=== PATIENT | male | born 1950 | race American Indian/Alaskan Native ===

== ENCOUNTER 2016-11-26 10:45 | Outpatient (CLI) | payer MEDICARE ==
--- NOTE | 2016-11-26 12:57 | Ultrasound Report ---
ULTRASOUND RENAL INDICATION: Chronic kidney disease. COMPARISON: None similar. FINDINGS: Renal sonography demonstrates mild to moderately increased renal cortical echogenicity, right more than left. Grossly preserved contours. No hydronephrosis. Right kidney measures 10.5 x 7.3 x 7.1 cm with cortical thickness of 1.5 cm. A 1 x 0.8 cm right upper to mid renal cortical round, non-shadowing, hyperechoic focus incidentally seen, image 9, possibly fatty and not excluded for a small angiomyolipoma, amongst others. Left kidney estimated at 10.2 x 5.6 x 5.6 cm with cortical thickness of 1.3 cm. Urinary bladder appears within normal limits. CONCLUSION: Medical renal disease and an approximately 1 cm right renal cortical hyperechoic focus without acute sonographic abnormality, as described. Thank you for the opportunity to participate in this patient's care.
== END 2016-11-26 10:46 | disposition home or self-care (01) ==
LOC: US 10:45
PROVIDERS: ATTEND Internal Medicine Nephrology
DX: N18.4 Chronic kidney disease, stage 4 (severe) (principal)
CPT/HCPCS: 76770

== ENCOUNTER 2017-01-09 06:45 | Day surgery (SDC) | payer MEDICARE ==
[2017-01-09 07:42] LABS: Basophils % (Auto) 1.2 % (0.0-1.8); Eosinophils % (Auto) 2.1 % (0.0-4.3); Hematocrit 33.2 % (35.5-45.6); Mean Corpuscular HGB Conc 33 % (32-34); Mean Corpuscular Volume 77 fl (84-94); Platelet Count 160 K/mm3 (140-440); Red Blood Count 4.32 M/mm3 (3.65-5.03); Red Cell Distribution Width 16.9 % (13.2-15.2); White Blood Count 7.9 K/mm3 (4.5-11.0)
[2017-01-09 07:45] LABS: Mean Corpuscular Hemoglobin 26 pg (28-32)
[2017-01-09 07:53] LABS: INR 1.06 (0.87-1.13)
[2017-01-09 07:54] LABS: Partial Thromboplastin Time 35.8 Sec. (24.2-36.6)
[2017-01-09] MEDS ORDERED: SUBLIMAZE IV ONE (09:42)
[2017-01-09] MEDS ORDERED: VERSED IV ONE (09:42)
--- NOTE | 2017-01-09 10:31 | Short Stay Summary ---
Short Stay Documentation Date of service: 01/09/17 - History Principal diagnosis: Chronic Renal Dz Past Medical History: hypertension - Allergies and Medications Current Medications: Allergies No Known Allergies Allergy (Verified 01/09/17 07:12) Home Medications Medication Instructions Recorded Confirmed Last Taken Type Furosemide [Lasix] 40 mg PO QDAY 30 Days 03/29/14 01/09/17 01/08/17 Rx Potassium Chloride [Klor-Con] 20 meq PO QDAY 03/13/16 01/09/17 01/08/17 History Simvastatin [Zocor TAB] 20 mg PO QHS tablet 03/17/16 01/09/17 01/08/17 Rx amLODIPine [Norvasc] 10 mg PO QDAY tablet 03/17/16 01/09/17 01/08/17 Rx hydrALAZINE [Apresoline TAB] 100 mg PO BID tablet 03/17/16 01/09/17 01/08/17 Rx Insulin Aspart [NovoLOG 100 5 units SQ 5XD 01/09/17 01/09/17 01/08/17 History UNITS/ML VIAL] Insulin Detemir [Levemir] 10 units SQ QHS 01/09/17 01/09/17 01/08/17 History Labetalol [Normodyne] 200 mg PO BID 01/09/17 01/09/17 01/08/17 History Lisinopril [Lisinopril] 40 mg PO BID 01/09/17 01/09/17 01/08/17 History - Physical exam General appearance: no acute distress - Brief post op/procedure progress note Date of procedure: 01/09/17 Pre-op diagnosis: CKD Post-op diagnosis: same Procedure: renal bx. Surgeon: SANTY ALVARES Estimated blood loss: none Specimen disposition: to lab Condition: stable - Disposition Condition at discharge: Good Disposition: DISCHARGED TO HOME OR SELFCARE Short Stay Discharge Plan Follow up with: ALIRIO LIMA MD [Primary Care Provider] - 7 Days
[2017-01-09 17:42] VITALS: BP 157/83
--- NOTE | 2017-01-13 08:13 | Cat Scan Report ---
CT-GUIDED BIOPSY OF THE LEFT KIDNEY. HISTORY: Chronic kidney disease. PROCEDURE: The patient's skin surface overlying the left flank was prepped and draped using sterile technique. Local anesthetic was injected into the skin. Using CT guidance, a 17-gauge sheath needle was advanced into the lower pole cortex of the left kidney. Two passes were made using an 18-gauge biopsy gun. Adequate tissue cores were obtained. Intravenous conscious sedation was used. Independent cardiorespiratory monitoring was performed by the outpatient procedure nurse for 20 minutes, supervised by me. The patient tolerated procedure well clinically and was sent to the outpatient procedure unit and placed on complete bed rest for at least 8 hours.
== END 2017-01-09 18:45 | disposition home or self-care (01) ==
LOC: OPU 06:45 → EDSTATUS 07:30 → OPU 18:45
PROVIDERS: ATTEND Internal Medicine Nephrology
DX: I13.0 Hypertensive heart and chronic kidney disease with heart failure and stage 1 through stage 4 chronic kidney disease, or unspecified chronic kidney disease (principal); E11.22 Type 2 diabetes mellitus with diabetic chronic kidney disease; E11.621 Type 2 diabetes mellitus with foot ulcer; N18.4 Chronic kidney disease, stage 4 (severe); I50.33 Acute on chronic diastolic (congestive) heart failure; I25.10 Atherosclerotic heart disease of native coronary artery without angina pectoris; F10.21 Alcohol dependence, in remission; F17.210 Nicotine dependence, cigarettes, uncomplicated; Z79.4 Long term (current) use of insulin; Z79.899 Other long term (current) drug therapy
CPT/HCPCS: 36415; 50200; 77012; 82962; 85025; 85610; 85730; J2250; J3010

== ENCOUNTER 2017-03-07 11:19 | Outpatient (CLI) | payer MEDICARE ==
--- NOTE | 2017-03-07 13:40 | Cat Scan Report ---
CT scan of abdomen and pelvis without IV contrast: History: Chronic kidney disease stage IV, acute left flank pain. Findings: Limited study due to absence of contrast. Normal lung bases. No pleural pericardial effusion. Normal liver spleen and pancreas. Gallbladder is contracted. Normal adrenals. There is swelling noted of the upper pole of left kidney with mixed attenuation. Suspicion of a mass or acute pyelonephritis cannot be excluded. No calculi is identified left kidney and ureter and bladder. 2 mm nonobstructing calculus right kidney. No free intraperitoneal fluid or air. No evidence of adenopathy. Atherosclerotic calcified abdominal aorta. Large amount of stool in gaseous colon. No obstruction. Impression: Acute pyelonephritis or mass upper pole left kidney. Nonobstructing small calculus right kidney. Gaseous colon with large volume stool.
== END 2017-03-07 11:20 | disposition home or self-care (01) ==
LOC: VAS 11:19
PROVIDERS: ATTEND Internal Medicine Nephrology
DX: N18.4 Chronic kidney disease, stage 4 (severe) (principal); K82.0 Obstruction of gallbladder; N20.0 Calculus of kidney; I70.0 Atherosclerosis of aorta
CPT/HCPCS: 74176

== ENCOUNTER 2017-04-17 11:48 | Outpatient (CLI) | payer MEDICARE ==
[2017-04-17] MEDS ORDERED: XYLOCAINE TOPICAL 4% TP ONE ×2 (12:07→12:38)
== END 2017-04-17 11:49 | disposition home or self-care (01) ==
LOC: WOUND 11:48
PROVIDERS: ATTEND Nurse Practitioner
DX: E11.621 Type 2 diabetes mellitus with foot ulcer (principal); L97.511 Non-pressure chronic ulcer of other part of right foot limited to breakdown of skin; E11.22 Type 2 diabetes mellitus with diabetic chronic kidney disease; I13.0 Hypertensive heart and chronic kidney disease with heart failure and stage 1 through stage 4 chronic kidney disease, or unspecified chronic kidney disease; N18.9 Chronic kidney disease, unspecified; I50.9 Heart failure, unspecified; E78.00 Pure hypercholesterolemia, unspecified; L84 Corns and callosities; F17.200 Nicotine dependence, unspecified, uncomplicated
CPT/HCPCS: 11042; G0463; 11055

== ENCOUNTER 2017-04-24 11:03 | Outpatient (CLI) | payer MEDICARE | END 2017-04-24 11:04 | disposition home or self-care (01) | LOC: WOUND 11:03 | PROVIDERS: ATTEND Nurse Practitioner | DX: E11.621 Type 2 diabetes mellitus with foot ulcer (principal); L97.511 Non-pressure chronic ulcer of other part of right foot limited to breakdown of skin; L84 Corns and callosities; E11.22 Type 2 diabetes mellitus with diabetic chronic kidney disease; I13.0 Hypertensive heart and chronic kidney disease with heart failure and stage 1 through stage 4 chronic kidney disease, or unspecified chronic kidney disease; N18.4 Chronic kidney disease, stage 4 (severe); I50.9 Heart failure, unspecified; E78.00 Pure hypercholesterolemia, unspecified; F17.200 Nicotine dependence, unspecified, uncomplicated | CPT/HCPCS: 99213; G0463 ==

== ENCOUNTER 2017-05-15 12:50 | Outpatient (CLI) | payer MEDICARE ==
--- NOTE | 2017-05-16 15:58 | Vascular Lab Report ---
Upper extremity vein mapping Reason for exam: Preoperative evaluation for hemodialysis access Comments: On the right, the cephalic vein is borderline usable from elbow to shoulder. The basilic vein is borderline usable from elbow to shoulder. The brachial and radial arteries are patent. The radial artery is of normal caliber. On the left, the cephalic vein is borderline usable from elbow to shoulder. The basilic vein is usable from elbow to shoulder. The brachial and radial arteries are patent. The radial artery is smaller in size measuring 1.9 mm. Impression: Both cephalic veins are borderline usable for use as AV access since there was no tourniquet this examination. Both basilic veins are borderline usable for use as AV access since there was no tourniquet this examination. Small left radial artery.
== END 2017-05-15 12:51 | disposition home or self-care (01) ==
LOC: VAS 12:50
PROVIDERS: ATTEND Radiology Diagnostic Radiology
DX: Z01.818 Encounter for other preprocedural examination (principal); I13.2 Hypertensive heart and chronic kidney disease with heart failure and with stage 5 chronic kidney disease, or end stage renal disease; N18.6 End stage renal disease; I50.9 Heart failure, unspecified; E78.00 Pure hypercholesterolemia, unspecified; I25.10 Atherosclerotic heart disease of native coronary artery without angina pectoris; J18.9 Pneumonia, unspecified organism; F17.200 Nicotine dependence, unspecified, uncomplicated
CPT/HCPCS: 93970

== ENCOUNTER 2017-06-09 08:19 | Day surgery (SDC) | payer MEDICARE ==
[~2017-06-09 08:19] MED LIST: ANCEF/STERILE WATER 2 GM/20 ML 2 GM/20 ML SYRINGE IV NR; DIPRIVAN 10 MG/ML IV ONE; HEPARIN 10,000 UNITS/10 ML ONE; MARCAINE 0.5% INFILTRATI ONE; NACL 0.9% 1000 ML 1,000 ML IV SCH; NACL 0.9% 500 ML 500 ML ONE; NACL P/F VIAL (10 ML) 0 ML ONE; NITROGLYCERIN SYRINGE 0 ML ONE; PROTAMINE SULFATE ONE; RIFADIN ONE; SUBLIMAZE ONE; XYLOCAINE MPF 2% ONE
[2017-06-09 09:43] LABS: Basophils % (Auto) 1.4 % (0.0-1.8); Eosinophils % (Auto) 3.1 % (0.0-4.3); Hematocrit 27.1 % (35.5-45.6); Hemoglobin 9.4 gm/dl (11.8-15.2); Mean Corpuscular HGB Conc 35 % (32-34); Mean Corpuscular Hemoglobin 27 pg (28-32); Mean Corpuscular Volume 78 fl (84-94); Platelet Count 122 K/mm3 (140-440); Red Blood Count 3.49 M/mm3 (3.65-5.03); Red Cell Distribution Width 16.8 % (13.2-15.2); White Blood Count 5.9 K/mm3 (4.5-11.0)
[2017-06-09 09:58] LABS: BUN/Creatinine Ratio 15.83; Calcium 8.1 mg/dL (8.4-10.2); Chloride 108.1 mmol/L (98-107); Potassium 4.2 mmol/L (3.6-5.0)
--- NOTE | 2017-06-09 09:59 | Anesthesia Consultation ---
Anesthesia Consult and Med Hx Date of service: 06/09/17 - Airway Anesthetic Teeth Evaluation: Poor ROM Head & Neck: Adequate Mental/Hyoid Distance: Adequate Mallampati Class: Class II Intubation Access Assessment: Probably Good - Pulmonary Exam CTA: Yes - Cardiac Exam Cardiac Exam: RRR - Pre-Operative Health Status ASA Pre-Surgery Classification: ASA4 Proposed Anesthetic Plan: General - Pre-Anesthesia Comment Pre-Anesthesia Comments: Echo 01/2017 EF 55-60%, Mod/Severe LV hypertrophy. Lexiscan 2016 Negative Stress Test - Pulmonary Hx Smoking: Yes (since 14 yrs old) SOB: Yes (upon exertion ) Hx Sleep Apnea: Yes (no cpap use ) - Cardiovascular System Hx Hypertension: Yes (CHF. Diastolic failure) Hx Coronary Artery Disease: Yes Hx Heart Attack/AMI: Yes Hx Percutaneous Transluminal Coronary Angioplasty (PTCA): Yes (2011) Hx Peripheral Vascular Disease: Yes - Central Nervous System CVA: Yes (2015, Right sided weakness with generalized weakness) - Endocrine Hx Renal Disease: Yes Hx End Stage Renal Disease: Yes Hx Insulin Dependent Diabetes: Yes () - Hematic Hx Anemia: Yes
[2017-06-09] MEDS ORDERED: PEPCID IV ONE (10:02)
--- NOTE | 2017-06-09 10:07 | Anesthesia Day of Surgery ---
Anesthesia Day of Surgery - Day of Surgery Patient Examined: Yes Patient H&P Reviewed: Yes Patient is NPO: Yes Beta Blockers: Yes (labetalol 06/08 at 7pm )
[2017-06-09] MEDS ORDERED: ePHEDrine SULFATE ONE (10:30)
[2017-06-09] MEDS ORDERED: MARCAINE 0.5% INFILTRATI ONE (10:48)
[2017-06-09] MEDS ORDERED: NACL 0.9% IR ONE (10:48)
[2017-06-09] MEDS ORDERED: HEPARIN 10,000 UNITS/10 ML 2,000 UNIT in NACL 0.9% 500 ML 500 ML IR ONE (10:48)
[2017-06-09] MEDS ORDERED: ZOFRAN ONE (11:21)
[2017-06-09] MEDS ORDERED: NEO SYNEPHRINE ONE (11:21)
--- NOTE | 2017-06-09 11:33 | Short Stay Summary ---
Short Stay Documentation Date of service: 06/09/17 Narrative H&P: See H&P - History H&P: obtained from office - Allergies and Medications Current Medications: Allergies No Known Allergies Allergy (Verified 06/03/17 09:20) Home Medications Medication Instructions Recorded Confirmed Last Taken Type Furosemide [Lasix] 80 mg PO BID 01/22/17 06/03/17 06/09/17 07:15 History Aspirin [Aspirin TAB] 81 mg PO ONCE #30 tablet 04/11/17 06/03/17 06/08/17 19:00 Rx AtorvaSTATin [Lipitor] 20 mg PO QHS #30 tablet 04/11/17 06/03/17 06/08/17 19:00 Rx Labetalol [Normodyne TAB] 200 mg PO BID #60 tablet 04/11/17 06/03/17 06/08/17 19 :00 Rx Potassium Chloride [Klor-Con] 20 meq PO QDAY #30 packet 04/11/17 06/03/17 19:00 Rx oxyCODONE /ACETAMINOPHEN [Percocet 1 tab PO Q6H PRN #30 tablet 04/11/1706/08/17 19:00 Rx 5/325 mg] Clopidogrel Bisulfate [Clopidogrel] 75 mg PO DAILY 06/03/17 06/03/17 06/09/17 07 :15 History hydrALAZINE [Apresoline TAB] 100 mg PO DAILY 06/03/17 06/03/17 06/09/17 07:15 History Insulin Aspart [NovoLOG 100 5 unit SQ PRN PRN 06/04/17 06/09/17 1 Month Ago History UNITS/ML VIAL] Insulin Detemir [Levemir] 10 unit SQ PRN PRN 06/04/17 06/09/17 1 Month Ago History Active Medications Cefazolin Sodium (Ancef/Sterile Water 2 Gm/20 Ml) 2 gm in 20 mls @ 80 mls/hr IV PREOP NR PRN Reason: Protocol Stop: 06/09/17 23:00 Sodium Chloride (Nacl 0.9% 1000 Ml) 1,000 mls @ 42 mls/hr IV DIRECT THONY Last Admin: 06/09/17 09:47 Dose: 42 mls/hr - Brief post op/procedure progress note Date of procedure: 06/16/17 Pre-op diagnosis: End-Stage Renal Disease Post-op diagnosis: same Procedure: Creation of Left Brachial Basilic Arteriovenous Fistula Anesthesia: SHAMA Surgeon: CARRI CABA Estimated blood loss: minimal Pathology: none Condition: stable - Disposition Condition at discharge: Good Disposition: DC-01 TO HOME OR SELFCARE Short Stay Discharge Plan Activity: other (no heavy lifting with left arm) Wound: open to air, keep clean and dry, other (okay to wash the wound with soap and water but do not soak in water) Follow up with: CARRI CABA MD [Staff Physician] - 14 Days Prescriptions: HYDROcodone/APAP 7.5-325 [[place] 7.5/325] 1 each PO Q6HR PRN #50 tablet PRN Reason: Pain
--- NOTE | 2017-06-09 11:35 | Operative Report ---
Operative Report Operative Report: Date of procedure: 06/09/2017 Pre-operative diagnosis: End-stage Renal Disease Post-operative diagnosis: End-stage Renal Disease Procedure(s): Creation of Left Brachial Artery to Basilic Arteriovenous Fistula Surgeon: Anival Lagunas MD Case Manager: None Anesthesia: Gen. endotracheal anesthesia EBL: Minimal Counts: Correct Complications: None Condition: Stable Findings: Successful creation of left brachiobasilic arteriovenous fistula with palpable thrill and radial pulse at the completion of the case. Specimen: None Indication: The patient is a 66-year-old male with a history of end-stage renal disease who is in need of long-term access. He had a vein mapping demonstrating he was an adequate candidate for creation of a fistula. He was given the risk, benefits, and alternative procedures and consented to procedure. Description of Procedure: The patient was brought to the operating room and laid in supine position after general endotracheal anesthesia was administered the patient was prepped and draped in normal sterile fashion. After anesthetizing the skin a transverse incision was created just below the antecubital crease. Dissection was carried down to the the basilic vein using sharp dissection. The vein was dissected out both proximally and distally and suture ligated and divided distally. I then ran a 3 Emanuel proximally in the vein, to ensure patency of the vein. I then flushed the vein with heparinized saline and controlled flow with a bulldog clamp. I then dissected out the brachial artery through this incision circumferentially both proximal and distal and controlled th artery with vessel loops. I placed the vessel loops on tension, controlling the flow through the artery, and created an arteriotomy using an 11 blade and Soni scissors. I created an end to side anastomosis between the basilic vein and brachial artery using a 6-0 Prolene in running fashion. Prior to completing the anastomosis I flushed the artery both proximally and distally and then advanced a 3 Emanuel proximally to break the spasm in the artery. I completed the anastomosis and removed all vessel loops allowing flow into the fistula which had an excellent thrill. I achieved hemostasis with a combination of direct pressure and electrocautery. Once hemostasis was achieved I anesthetized the wound with Marcaine. I closed the wound in 2 layers using 3-0 Vicryl in a running fashion to close the deep dermal layer and 4-0 Monocryl in a running fashion in the subcuticular layer. I dressed the wound with Surgicel. The patient tolerated the procedure well, all sponge needle and instrument counts were correct. The patient was taken to recovery in stable condition.
[2017-06-09 12:26] VITALS: BP 147/75
== END 2017-06-09 12:57 | disposition home or self-care (01) ==
LOC: OR 08:19
PROVIDERS: ATTEND Surgery Vascular Surgery
DX: E11.22 Type 2 diabetes mellitus with diabetic chronic kidney disease (principal); I13.2 Hypertensive heart and chronic kidney disease with heart failure and with stage 5 chronic kidney disease, or end stage renal disease; I50.30 Unspecified diastolic (congestive) heart failure; N18.6 End stage renal disease; E78.5 Hyperlipidemia, unspecified; F17.210 Nicotine dependence, cigarettes, uncomplicated; G47.33 Obstructive sleep apnea (adult) (pediatric); D64.9 Anemia, unspecified; I25.10 Atherosclerotic heart disease of native coronary artery without angina pectoris; Z86.73 Personal history of transient ischemic attack (TIA), and cerebral infarction without residual deficits; Z86.79 Personal history of other diseases of the circulatory system; Z95.5 Presence of coronary angioplasty implant and graft; Z98.890 Other specified postprocedural states; Z79.01 Long term (current) use of anticoagulants; Z79.82 Long term (current) use of aspirin; Z79.899 Other long term (current) drug therapy
CPT/HCPCS: 36415; 36821; 80048; 82962; 85025; C1757; J0690; J1644; J2370; J2405; J2704; J3010; J7030; J7040; J2720; J3490

== ENCOUNTER 2017-11-03 16:51 | Inpatient (IN) | payer MEDICARE ==
[2017-11-03] MEDS ORDERED: NACL 0.9% 1000 ML 1,000 ML IV ONE (17:03)
[2017-11-03 17:41] LABS: Albumin 3.5 g/dL (3.9-5); Albumin/Globulin Ratio 1.3 %; Bilirubin,Total 0.2 mg/dL (0.1-1.2); Calcium 7.5 mg/dL (8.4-10.2); Total Protein 6.1 g/dL (6.3-8.2)
[2017-11-03 17:42] LABS: Potassium 4.3 mmol/L (3.6-5.0)
[2017-11-03 17:48] LABS: Eosinophils % (Auto) 1.6 % (0.0-4.3); Hematocrit 23.5 % (35.5-45.6); Hemoglobin 7.7 gm/dl (11.8-15.2); Mean Corpuscular HGB Conc 33 % (32-34); Mean Corpuscular Volume 76 fl (84-94); Platelet Count 195 K/mm3 (140-440); Red Blood Count 3.08 M/mm3 (3.65-5.03); Red Cell Distribution Width 17.7 % (13.2-15.2); White Blood Count 6.8 K/mm3 (4.5-11.0)
[2017-11-03 17:58] LABS: INR 1.09 (0.87-1.13)
[2017-11-03 17:59] LABS: Partial Thromboplastin Time 37.1 Sec. (24.2-36.6)
[2017-11-03 18:15] LABS: Mean Corpuscular Hemoglobin 25 pg (28-32)
--- NOTE | 2017-11-04 06:22 | Emergency Department Report ---
ED General Adult HPI - General Chief complaint: Recheck/Abnormal Lab/Rx Stated complaint: ABNORMAL LABS Time Seen by Provider: 11/04/17 06:14 Source: patient Mode of arrival: Wheelchair Limitations: No Limitations - History of Present Illness Initial comments: Note: It should be noted that the patient received a liter of normal saline before I saw him. Apparently the patient had lab drawn on Friday. He was informed yesterday by his PMD to go to the emergency department because he had laboratory abnormalities. Patient himself states he has been short of breath as well as generalized weak. He complains of no chest or abdominal pain. He denies fever or chills. He states he's had some white sputum and substantial leg swelling which is chronic. Patient had an AV fistula placed in May of the current year. This was successful. It has not yet been used. I believe it was placed in anticipation of dialysis due to the patient's impaired renal function and cardiomyopathy. -: Gradual Severity scale (0 -10): 0 Consistency: intermittent (shortness of breath and constant leg edema does not complain of leg pain) Improves with: none Worsens with: other (exertion) Associated Symptoms: denies other symptoms (denies fever or chills), shortness of breath, weakness - Related Data Home Medications Medication Instructions Recorded Confirmed Last Taken Furosemide [Lasix] 80 mg PO BID 01/22/17 06/03/17 06/09/17 07:15 Clopidogrel Bisulfate [Clopidogrel] 75 mg PO DAILY 06/03/17 06/03/17 06/09/17 07 :15 hydrALAZINE [Apresoline TAB] 100 mg PO DAILY 06/03/17 06/03/17 06/09/17 07:15 Insulin Aspart [NovoLOG 100 5 unit SQ PRN PRN 06/04/17 06/09/17 1 Month Ago UNITS/ML VIAL] ~05/10/17 Insulin Detemir [Levemir] 10 unit SQ PRN PRN 06/04/17 06/09/17 1 Month Ago ~05/10/17 Previous Rx's Medication Instructions Recorded Last Taken Type Aspirin [Aspirin TAB] 81 mg PO ONCE #30 tablet 04/11/17 06/08/17 19:00 Rx AtorvaSTATin [Lipitor] 20 mg PO QHS #30 tablet 04/11/17 06/08/17 19:00 Rx Labetalol [Normodyne TAB] 200 mg PO BID #60 tablet 04/11/17 06/08/17 19:00 Rx Potassium Chloride [Klor-Con] 20 meq PO QDAY #30 packet 04/11/17 06/08/17 19:00 Rx oxyCODONE /ACETAMINOPHEN [Percocet 1 tab PO Q6H PRN #30 tablet 04/11/17 19:00 Rx 5/325 mg] HYDROcodone/APAP 7.5-325 [[place] 1 each PO Q6HR PRN #50 tablet 06/09/17 Unknown Rx 7.5/325] Allergies Allergy/AdvReac Type Severity Reaction Status Date / Time No Known Allergies Allergy Verified 06/03/17 09:20 ED Review of Systems ROS: Stated complaint: ABNORMAL LABS Other details as noted in HPI Constitutional: denies: chills, fever Eyes: denies: eye pain, eye discharge, vision change ENT: denies: ear pain, throat pain Respiratory: cough, shortness of breath. denies: wheezing Cardiovascular: denies: chest pain, palpitations Endocrine: no symptoms reported Gastrointestinal: denies: abdominal pain, nausea, diarrhea Genitourinary: denies: urgency, dysuria Musculoskeletal: denies: back pain, joint swelling, arthralgia Skin: denies: rash, lesions Neurological: denies: headache, weakness, paresthesias Psychiatric: denies: anxiety, depression Hematological/Lymphatic: denies: easy bleeding, easy bruising ED Past Medical Hx - Past Medical History Previous Medical History?: Yes Hx Hypertension: Yes (CHF. Diastolic failure) Hx Heart Attack/AMI: Yes Hx Congestive Heart Failure: Yes Hx Diabetes: Yes (since 1997) Hx Renal Disease: Yes Hx Arthritis: No Hx Headaches / Migraines: Yes Hx Asthma: No Hx COPD: No Hx HIV: No - Surgical History Past Surgical History?: Yes Hx Coronary Stent: Yes Additional Surgical History: tonsillectomy - Social History Smoking Status: Current Every Day Smoker Substance Use Type: None - Medications Home Medications: Home Medications Medication Instructions Recorded Confirmed Last Taken Type Furosemide [Lasix] 80 mg PO BID 01/22/17 06/03/17 06/09/17 07:15 History Aspirin [Aspirin TAB] 81 mg PO ONCE #30 tablet 04/11/17 06/03/17 06/08/17 19:00 Rx AtorvaSTATin [Lipitor] 20 mg PO QHS #30 tablet 04/11/17 06/03/17 06/08/17 19:00 Rx Labetalol [Normodyne TAB] 200 mg PO BID #60 tablet 04/11/17 06/03/17 06/08/17 19 :00 Rx Potassium Chloride [Klor-Con] 20 meq PO QDAY #30 packet 04/11/17 06/03/17 19:00 Rx oxyCODONE /ACETAMINOPHEN [Percocet 1 tab PO Q6H PRN #30 tablet 04/11/1706/08/17 19:00 Rx 5/325 mg] Clopidogrel Bisulfate [Clopidogrel] 75 mg PO DAILY 06/03/17 06/03/17 06/09/17 07 :15 History hydrALAZINE [Apresoline TAB] 100 mg PO DAILY 06/03/17 06/03/17 06/09/17 07:15 History Insulin Aspart [NovoLOG 100 5 unit SQ PRN PRN 06/04/17 06/09/17 1 Month Ago History UNITS/ML VIAL] ~05/10/17 Insulin Detemir [Levemir] 10 unit SQ PRN PRN 06/04/17 06/09/17 1 Month Ago History ~05/10/17 HYDROcodone/APAP 7.5-325 [[place] 1 each PO Q6HR PRN #50 tablet 06/09/17 Unknown Rx 7.5/325] ED Physical Exam - General Limitations: No Limitations General appearance: alert, in no apparent distress - Head Head exam: Present: atraumatic, normocephalic - Eye Eye exam: Present: normal appearance. Absent: scleral icterus - ENT ENT exam: Present: mucous membranes moist - Neck Neck exam: Present: normal inspection. Absent: tenderness, meningismus - Respiratory Respiratory exam: Present: normal lung sounds bilaterally, rhonchi (some upper airway sounds/rhonchi but no moist rales). Absent: respiratory distress - Cardiovascular Cardiovascular Exam: Present: regular rate, normal rhythm. Absent: systolic murmur, diastolic murmur, rubs, gallop - GI/Abdominal GI/Abdominal exam: Present: soft, normal bowel sounds. Absent: distended, tenderness, guarding, rebound, rigid - Rectal Rectal exam: Present: deferred - Extremities Exam Extremities exam: Present: other (3+ leg edema to the knees) - Back Exam Back exam: Present: normal inspection - Neurological Exam Neurological exam: Present: alert, oriented X3, CN II-XII intact. Absent: motor sensory deficit - Psychiatric Psychiatric exam: Present: normal affect, normal mood - Skin Skin exam: Present: warm, dry, intact, normal color. Absent: rash ED Course Vital Signs 11/03/17 11/04/17 11/04/17 16:55 04:10 04:11 Temperature 97.4 F L 98.2 F Pulse Rate 74 78 Respiratory 16 16 16 Rate Blood Pressure 176/86 Blood Pressure 177/80 [Right] O2 Sat by Pulse 100 100 100 Oximetry - Reevaluation(s) Reevaluation #1: Patient's chest x-ray is consistent with pulmonary edema. However the radiologist was leaning towards infiltrates so I gave the patient 1 dose of antibiotics. I am convinced this is pulmonary edema however. Manager Stars was paged. The patient was given an inch of Nitropaste for his hypertension. He was given a dose of Lasix. He was also given half an amp of bicarbonate for his substantial metabolic acidosis. I spoke with Dr. Colvin who has placed dialysis orders. The hospitalist will be admitting this patient. 11/04/17 08:25 ED Medical Decision Making - Lab Data Result diagrams: 11/03/17 17:05 11/03/17 17:05 Laboratory Results - last 24 hr 11/03/17 11/03/17 11/03/17 17:05 17:05 17:05 WBC 6.8 RBC 3.08 L Hgb 7.7 L Hct 23.5 L MCV 76 L MCH 25 L MCHC 33 RDW 17.7 H Plt Count 195 Lymph % (Auto) 20.9 [place] % (Auto) 10.0 H Eos % (Auto) 1.6 Baso % (Auto) 1.0 Lymph # 1.4 [place] # 0.7 Eos # 0.1 Baso # 0.1 Seg Neutrophils % 66.5 Seg Neutrophils # 4.5 PT 14.7 INR 1.09 APTT 37.1 H Sodium 143 Potassium 4.3 Chloride 112.0 H Carbon Dioxide 11 L Anion Gap 24 BUN 60 H Creatinine 4.0 H Estimated GFR 18 BUN/Creatinine Ratio 15 Glucose 109 H Calcium 7.5 L Total Bilirubin 0.20 AST 17 ALT 19 Alkaline Phosphatase 72 Total Protein 6.1 L Albumin 3.5 L Albumin/Globulin Ratio 1.3 Lipase 15 Blood Type Antibody Screen 11/03/17 17:12 WBC RBC Hgb Hct MCV MCH MCHC RDW Plt Count Lymph % (Auto) [place] % (Auto) Eos % (Auto) Baso % (Auto) Lymph # [place] # Eos # Baso # Seg Neutrophils % Seg Neutrophils # PT INR APTT Sodium Potassium Chloride Carbon Dioxide Anion Gap BUN Creatinine Estimated GFR BUN/Creatinine Ratio Glucose Calcium Total Bilirubin AST ALT Alkaline Phosphatase Total Protein Albumin Albumin/Globulin Ratio Lipase Blood Type AB POSITIVE Antibody Screen Negative - EKG Data -: EKG Interpreted by Me EKG shows normal: sinus rhythm, axis, intervals, QRS complexes, ST-T waves Rate: normal - EKG Data Interpretation: LVH (consistent with LVH with associated repolarization abnormalities and additionally inferior wall T-wave inversions right axis deviation) - Radiology Data interpreted by me: I believe the chest x-ray is likely indicative of pulmonary edema. Radiologist describes lower lobe infiltrates. Critical Care Time: Yes Critical care time in (mins) excluding proc time.: 60 Critical care attestation.: If time is entered above; I have spent that time in minutes in the direct care of this critically ill patient, excluding procedure time. ED Disposition Clinical Impression: ESRD needing dialysis, Metabolic acidosis, Elevated troponin Pulmonary edema Qualifiers: Chronicity: acute Qualified Code(s): J81.0 - Acute pulmonary edema Cardiomyopathy Qualifiers: Cardiomyopathy type: unspecified Qualified Code(s): I42.9 - Cardiomyopathy, unspecified Disposition: -09 OP ADMIT IP TO THIS HOSP Is pt being admited?: Yes Does the pt Need Aspirin: Yes Condition: Stable Instructions: Pulmonary Edema (ED) Referrals: PRIMARY CARE, [Primary Care Provider] - 3-5 Days Time of Disposition: 08:30
--- NOTE | 2017-11-04 06:34 | XRay Report ---
FINAL REPORT PROCEDURE: XR CHEST 1V AP TECHNIQUE: Chest radiograph anteroposterior view. CPT 53480 HISTORY: hypertension COMPARISON: No prior studies are available for comparison. FINDINGS: Heart: Normal. Mediastinum/Vessels: Normal. Lungs/Pleural space: There are bilateral perihilar and lower lobe infiltrates. There are no effusions or pneumothoraces.. Bony thorax: No acute osseous abnormality. Life support devices: None. IMPRESSION: The heart size is normal. There are bilateral perihilar lower lobe infiltrates..
[2017-11-04] MEDS ORDERED: NITRO-BID 2% TP ONE (06:43)
[2017-11-04] MEDS ORDERED: LEVAQUIN 750MG/150ML 750 MG/150 ML BAG IV ONE (06:44)
[2017-11-04] MEDS ORDERED: SODIUM BICARBONATE IV ONE (07:00)
[2017-11-04 07:07] LABS: Creatine Kinase MB 9.6 ng/mL (0.0-4.0)
[2017-11-04 07:08] LABS: Magnesium 1.8 mg/dL (1.7-2.3)
[2017-11-04] MEDS ORDERED: LASIX ONE ×2 (07:55)
[2017-11-04] MEDS ORDERED: LASIX IV ONE (07:55)
[2017-11-04 08:26] LABS: Urine Drugs of Abuse Note Disclamer
[2017-11-04] MEDS ORDERED: BABY ASPIRIN PO ONE (08:30)
[2017-11-04 08:48] LABS: Bilirubin,Urine NEG (Negative); Blood,Urine SM (Negative); Ketones,Urine NEG (Negative); Leukocyte Esterase,Urine NEG (Negative); Nitrite,Urine NEG (Negative); Urobilinogen,Urine < 2.0 mg/dL (<2.0)
[2017-11-04] MEDS ORDERED: PERCOCET 5/325 PO PRN (08:54)
[2017-11-04] MEDS ORDERED: PROVENTIL IH PRN (08:54)
[2017-11-04] MEDS ORDERED: TYLENOL PO PRN (08:54)
[2017-11-04] MEDS ORDERED: DULCOLAX PR PRN (08:54)
[2017-11-04] MEDS ORDERED: ZOFRAN IV PRN (08:54)
[2017-11-04] MEDS ORDERED: MILK OF MAGNESIA PO PRN (08:54)
[2017-11-04] MEDS ORDERED: D50W (25GM) Syringe IV PRN (09:14)
[2017-11-04] MEDS ORDERED: NORMODYNE ONE (12:03)
[2017-11-04] MEDS: NORMODYNE PO SCH ×2 (12:05→22:02)
[2017-11-04] MEDS: NOVOLOG SUB-Q SCH ×3 (12:12→22:47)
--- NOTE | 2017-11-04 13:18 | History and Physical Report ---
<CARMEN CURRAN - Last Filed: 11/04/17 15:48> History of Present Illness Date of examination: 11/04/17 Date of admission: 11/04/17 08:54 Chief complaint: Low Hemoglobin Past History Past Medical History: acute [place], diabetes, heart failure, hypertension, hyperlipidemia, migraines, renal failure Past Surgical History: Other (2 Coronary stents 2011) Social history: , lives with family, smoking (current everyday smoker) Medications and Allergies Allergies Allergy/AdvReac Type Severity Reaction Status Date / Time No Known Allergies Allergy Verified 06/03/17 09:20 Home Medications Medication Instructions Recorded Confirmed Last Taken Type Furosemide [Lasix] 80 mg PO BID 01/22/17 11/04/17 11/03/17 History Aspirin [Aspirin TAB] 81 mg PO ONCE #30 tablet 04/11/17 11/04/17 11/03/17 Rx AtorvaSTATin [Lipitor] 20 mg PO QHS #30 tablet 04/11/17 11/04/17 11/03/17 Rx Labetalol [Normodyne TAB] 200 mg PO BID #60 tablet 04/11/17 11/04/17 11/03/17 Rx Potassium Chloride [Klor-Con] 20 meq PO QDAY #30 packet 04/11/17 11/04/17 Rx oxyCODONE /ACETAMINOPHEN [Percocet 1 tab PO Q6H PRN #30 tablet 04/11/1711/03/17 Rx 5/325 mg] Clopidogrel Bisulfate [Clopidogrel] 75 mg PO DAILY 06/03/17 11/04/17 11/03/17 History hydrALAZINE [Apresoline TAB] 100 mg PO DAILY 06/03/17 11/04/17 11/03/17 History Insulin Aspart [NovoLOG 100 5 unit SQ PRN PRN 06/04/17 11/04/17 1 Month Ago History UNITS/ML VIAL] ~05/10/17 Insulin Detemir [Levemir] 10 unit SQ PRN PRN 06/04/17 11/04/17 1 Month Ago History ~05/10/17 Active Meds: Active Medications Acetaminophen (Tylenol) 650 mg PO Q4H PRN PRN Reason: Pain MILD(1-3)/Fever >100.5/DAILEY Albuterol (Proventil) 2.5 mg IH Q4HRT PRN PRN Reason: Shortness Of Breath Aspirin (Baby Aspirin) 81 mg PO QDAY [facility] Atorvastatin Calcium (Lipitor) 20 mg PO QHS [facility] Bisacodyl (Dulcolax) [address] QDAY PRN PRN Reason: Constipation unrelieved by MOM Clopidogrel Bisulfate (Plavix) 75 mg PO DAILY [facility] Dextrose (D50w (25gm) Syringe) 50 ml IV PRN PRN PRN Reason: Hypoglycemia Furosemide (Lasix) 60 mg IV 0600,1800 [facility] Heparin Sodium (Porcine) (Heparin) 5,000 unit SUB-Q Q8HR [facility] Hydralazine HCl (Apresoline) 100 mg PO DAILY [facility] Levofloxacin/Dextrose (Levaquin 500mg/100ml) 500 mg in 100 mls @ 100 mls/hr IV Q48H [facility] Insulin Aspart (Novolog) 0 units SUB-Q ACHS [facility] PRN Reason: Protocol Last Admin: 11/04/17 12:12 Dose: Not Given Labetalol HCl (Normodyne) 200 mg PO BID [facility] Last Admin: 11/04/17 12:05 Dose: 200 mg Magnesium Hydroxide (Milk Of Magnesia) 30 ml PO Q4H PRN PRN Reason: Constipation Ondansetron HCl (Zofran) 4 mg IV Q8H PRN PRN Reason: N/V unrelieved by Reglan Oxycodone/Acetaminophen (Percocet 5/325) 1 tab PO Q6H PRN PRN Reason: Pain, Moderate (4-6) Potassium Chloride (Potassium Chloride) 20 meq PO QDAY [facility] Sodium Bicarbonate (Sodium Bicarbonate) 1,300 mg PO BID [facility] Zolpidem Tartrate (Ambien) 5 mg PO QHS PRN PRN Reason: Insomnia Review of Systems Constitutional: no weight loss, no weight gain, no chills Ears, nose, mouth and throat: no ear discharge, no nasal congestion Cardiovascular: shortness of breath, no chest pain, no orthopnea Respiratory: cough, shortness of breath Gastrointestinal: no abdominal pain, no nausea, no vomiting Genitourinary Male: no dysuria, no hematuria Musculoskeletal: no myalgias, no arthritis Integumentary: no rash, no pruritis Neurological: no numbness, no headaches Psychiatric: no anxiety, no depression Endocrine: no heat intolerance, no excessive thirst Hematologic/Lymphatic: no easy bruising, no easy bleeding Allergic/Immunologic: no urticaria, no allergic rhinitis Exam - Constitutional Vitals: Temp Pulse Resp BP Pulse Ox 98.0 F 90 28 H 172/77 100 11/04/17 07:00 11/04/17 12:05 11/04/17 08:00 11/04/17 12:05 11/04/17 08:45 General appearance: Present: no acute distress, well-nourished - EENT Eyes: Present: PERRL ENT: hearing intact, clear oral mucosa - Neck Neck: Present: supple, normal ROM - Respiratory Respiratory effort: normal Respiratory: bilateral: rhonchi, wheezing - Cardiovascular Rhythm: regular Heart Sounds: Present: S1 & S2 - Extremities Extremities: no ischemia Extremity abnormal: edema (4+ bilateral LE pitting to the knee) Peripheral Pulses: within normal limits - Abdominal General gastrointestinal: Present: soft, non-tender, non-distended, normal bowel sounds Male genitourinary: Present: normal - Rectal Rectal Exam: deferred - Integumentary Integumentary: Present: clear, warm, dry - Musculoskeletal Musculoskeletal: gait normal, strength equal bilaterally - Psychiatric Psychiatric: appropriate mood/affect, intact judgment & insight - Neurologic Neurologic: CNII-XII intact, moves all extremities - Allied Health Allied health notes reviewed: nursing Results - Labs CBC & Chem 7: 11/03/17 17:05 11/03/17 17:05 Labs: Laboratory Last Values WBC 6.8 K/mm3 (4.5-11.0) 11/03/17 17:05 RBC 3.08 M/mm3 (3.65-5.03) L 11/03/17 17:05 Hgb 7.7 gm/dl (11.8-15.2) L 11/03/17 17:05 Hct 23.5 % (35.5-45.6) L 11/03/17 17:05 MCV 76 fl (84-94) L 11/03/17 17:05 MCH 25 pg (28-32) L 11/03/17 17:05 MCHC 33 % (32-34) 11/03/17 17:05 RDW 17.7 % (13.2-15.2) H 11/03/17 17:05 Plt Count 195 K/mm3 (140-440) 11/03/17 17:05 Lymph % (Auto) 20.9 % (13.4-35.0) 11/03/17 17:05 Beadle % (Auto) 10.0 % (0.0-7.3) H 11/03/17 17:05 Eos % (Auto) 1.6 % (0.0-4.3) 11/03/17 17:05 Baso % (Auto) 1.0 % (0.0-1.8) 11/03/17 17:05 Lymph # 1.4 K/mm3 (1.2-5.4) 11/03/17 17:05 Beadle # 0.7 K/mm3 (0.0-0.8) 11/03/17 17:05 Eos # 0.1 K/mm3 (0.0-0.4) 11/03/17 17:05 Baso # 0.1 K/mm3 (0.0-0.1) 11/03/17 17:05 Seg Neutrophils % 66.5 % (40.0-70.0) 11/03/17 17:05 Seg Neutrophils # 4.5 K/mm3 (1.8-7.7) 11/03/17 17:05 PT 14.7 Sec. (12.2-14.9) 11/03/17 17:05 INR 1.09 (0.87-1.13) 11/03/17 17:05 APTT 37.1 Sec. (24.2-36.6) H 11/03/17 17:05 VBG pH 7.280 (7.320-7.420) L 11/04/17 06:31 Sodium 143 mmol/L (137-145) 11/03/17 17:05 Potassium 4.3 mmol/L (3.6-5.0) 11/03/17 17:05 Chloride 112.0 mmol/L (98-107) H 11/03/17 17:05 Carbon Dioxide 11 mmol/L (22-30) L 11/03/17 17:05 Anion Gap 24 mmol/L 11/03/17 17:05 BUN 60 mg/dL (9-20) H 11/03/17 17:05 Creatinine 4.0 mg/dL (0.8-1.5) H 11/03/17 17:05 Estimated GFR 18 ml/min 11/03/17 17:05 BUN/Creatinine Ratio 15 % 11/03/17 17:05 Glucose 109 mg/dL (75-100) H 11/03/17 17:05 POC Glucose 70 (70-105) 11/04/17 12:13 Hemoglobin A1c 4.6 % (4-6) 11/04/17 09:35 Lactic Acid 0.50 mmol/L (0.7-2.0) L 11/04/17 06:31 Calcium 7.5 mg/dL (8.4-10.2) L 11/03/17 17:05 Magnesium 1.80 mg/dL (1.7-2.3) 11/04/17 06:31 Total Bilirubin 0.20 mg/dL (0.1-1.2) 11/03/17 17:05 AST 17 units/L (5-40) 11/03/17 17:05 ALT 19 units/L (7-56) 11/03/17 17:05 Alkaline Phosphatase 72 units/L (35-129) 11/03/17 17:05 Total Creatine Kinase 264 units/L (55-170) H 11/04/17 06:31 CK-MB (CK-2) 9.6 ng/mL (0.0-4.0) H 11/04/17 06:31 CK-MB (CK-2) Rel Index 3.6 (0-4) 11/04/17 06:31 Troponin T 0.103 ng/mL (0.00-0.029) H* 11/04/17 06:31 NT-Pro-B Natriuret Pep 45418 pg/mL (0-900) H 11/04/17 06:31 Total Protein 6.1 g/dL (6.3-8.2) L 11/03/17 17:05 Albumin 3.5 g/dL (3.9-5) L 11/03/17 17:05 Albumin/Globulin Ratio 1.3 % 11/03/17 17:05 Triglycerides 58 mg/dL (2-149) 11/04/17 06:31 Cholesterol 113 mg/dL (50-199) 11/04/17 06:31 LDL Cholesterol Direct 59 mg/dL (50-130) 11/04/17 06:31 HDL Cholesterol 43 mg/dL (40-59) 11/04/17 06:31 Cholesterol/HDL Ratio 2.62 % 11/04/17 06:31 Lipase 15 units/L (13-60) 11/03/17 17:05 Urine Color Yellow (Yellow) 11/04/17 07:55 Urine Turbidity Clear (Clear) 11/04/17 07:55 Urine pH 5.0 (5.0-7.0) 11/04/17 07:55 Ur Specific Manning 1.012 (1.003-1.030) 11/04/17 07:55 Urine Protein 100 mg/dl mg/dL (Negative) 11/04/17 07:55 Urine Glucose (UA) 50 mg/dL (Negative) 11/04/17 07:55 Urine Ketones Neg mg/dL (Negative) 11/04/17 07:55 Urine Blood Sm (Negative) 11/04/17 07:55 Urine Nitrite Neg (Negative) 11/04/17 07:55 Urine Bilirubin Neg (Negative) 11/04/17 07:55 Urine Urobilinogen < 2.0 mg/dL (<2.0) 11/04/17 07:55 Ur Leukocyte Esterase Neg (Negative) 11/04/17 07:55 Urine WBC (Auto) 1.0 /HPF (0.0-6.0) 11/04/17 07:55 Urine RBC (Auto) 5.0 /HPF (0.0-6.0) 11/04/17 07:55 Urine Opiates Screen Presumptive negative 11/04/17 07:55 Urine Methadone Screen Presumptive negative 11/04/17 07:55 Ur Barbiturates Screen Presumptive negative 11/04/17 07:55 Ur Phencyclidine Scrn Presumptive negative 11/04/17 07:55 Ur Amphetamines Screen Presumptive negative 11/04/17 07:55 U Benzodiazepines Scrn Presumptive negative 11/04/17 07:55 Urine Cocaine Screen Presumptive negative 11/04/17 07:55 U Marijuana (THC) Screen Presumptive negative 11/04/17 07:55 Drugs of Abuse Note Disclamer 11/04/17 07:55 Blood Type AB POSITIVE 11/03/17 17:12 Antibody Screen Negative 11/03/17 17:12 - Imaging and Cardiology Chest x-ray: report reviewed (bilateral perihilar lower lobe infiltrate) Assessment and Plan Advance Directives: Yes VTE prophylaxis?: Chemical Plan of care discussed with patient/family: Yes - Patient Problems (1) Acute renal failure Current Visit: No Status: Acute Plan to address problem: Nephrology consult and strict ins and outs hemodialysis as determined by wrist closer, avoid nephrotoxins (2) HLD (hyperlipidemia) Current Visit: Yes Status: Acute Plan to address problem: Continue Lipitor (3) Elevated troponin Current Visit: Yes Status: Acute Plan to address problem: Repeat troponin levels ordered (4) Metabolic acidosis Current Visit: Yes Status: Acute Plan to address problem: Treated with bicarbonate (5) Pulmonary edema Current Visit: Yes Status: Acute QualifierTitle: Chronicity: acute Qualified Code(s): J81.0 - Acute pulmonary edema (6) DVT prophylaxis Current Visit: No Status: Acute Plan to address problem: On heparin (7) Diabetes mellitus, type 2 Current Visit: No Status: Chronic Plan to address problem: Sliding scale insulin, ADA diet, Accu-Cheks before meals and at bedtime (8) HTN (hypertension) Current Visit: No Status: Chronic Plan to address problem: Continue current regimen, monitor blood pressure every shift, hydralazine PRN (9) Nicotine dependence Current Visit: No Status: Chronic Plan to address problem: Patient counseled on smoking cessation <PAULY GERARD - Last Filed: 11/04/17 17:50> History of Present Illness Date of admission: 11/04/17 08:54 Medications and Allergies Active Meds: Active Medications Acetaminophen (Tylenol) 650 mg PO Q4H PRN PRN Reason: Pain MILD(1-3)/Fever >100.5/DAILEY Albuterol (Proventil) 2.5 mg IH Q4HRT PRN PRN Reason: Shortness Of Breath Aspirin (Baby Aspirin) 81 mg PO QDAY [facility] Last Admin: 11/04/17 13:35 Dose: Not Given Atorvastatin Calcium (Lipitor) 20 mg PO QHS [facility] Bisacodyl (Dulcolax) [address] QDAY PRN PRN Reason: Constipation unrelieved by MOM Clopidogrel Bisulfate (Plavix) 75 mg PO DAILY [facility] Last Admin: 11/04/17 15:57 Dose: 75 mg Dextrose (D50w (25gm) Syringe) 50 ml IV PRN PRN PRN Reason: Hypoglycemia Furosemide (Lasix) 60 mg IV 0600,1800 [facility] Heparin Sodium (Porcine) (Heparin) 5,000 unit SUB-Q Q8HR [facility] Last Admin: 11/04/17 15:57 Dose: 5,000 unit Hydralazine HCl (Apresoline) 100 mg PO DAILY [facility] Last Admin: 11/04/17 15:57 Dose: 100 mg Levofloxacin/Dextrose (Levaquin 500mg/100ml) 500 mg in 100 mls @ 100 mls/hr IV Q48H [facility] Insulin Aspart (Novolog) 0 units SUB-Q ACHS [facility] PRN Reason: Protocol Last Admin: 11/04/17 12:12 Dose: Not Given Labetalol HCl (Normodyne) 200 mg PO BID [facility] Last Admin: 11/04/17 12:05 Dose: 200 mg Magnesium Hydroxide (Milk Of Magnesia) 30 ml PO Q4H PRN PRN Reason: Constipation Ondansetron HCl (Zofran) 4 mg IV Q8H PRN PRN Reason: N/V unrelieved by Reglan Oxycodone/Acetaminophen (Percocet 5/325) 1 tab PO Q6H PRN PRN Reason: Pain, Moderate (4-6) Potassium Chloride (Potassium Chloride) 20 meq PO QDAY [facility] Last Admin: 11/04/17 15:57 Dose: 20 meq Sodium Bicarbonate (Sodium Bicarbonate) 1,300 mg PO BID [facility] Zolpidem Tartrate (Ambien) 5 mg PO QHS PRN PRN Reason: Insomnia Exam - Constitutional Vitals: Temp Pulse Resp BP Pulse Ox 98.6 F 80 20 145/70 100 11/04/17 17:20 11/04/17 17:20 11/04/17 17:20 11/04/17 17:20 11/04/17 17:20 Results - Labs CBC & Chem 7: 11/03/17 17:05 11/03/17 17:05 Labs: Laboratory Last Values WBC 6.8 K/mm3 (4.5-11.0) 11/03/17 17:05 RBC 3.08 M/mm3 (3.65-5.03) L 11/03/17 17:05 Hgb 7.7 gm/dl (11.8-15.2) L 11/03/17 17:05 Hct 23.5 % (35.5-45.6) L 11/03/17 17:05 MCV 76 fl (84-94) L 11/03/17 17:05 MCH 25 pg (28-32) L 11/03/17 17:05 MCHC 33 % (32-34) 11/03/17 17:05 RDW 17.7 % (13.2-15.2) H 11/03/17 17:05 Plt Count 195 K/mm3 (140-440) 11/03/17 17:05 Lymph % (Auto) 20.9 % (13.4-35.0) 11/03/17 17:05 Beadle % (Auto) 10.0 % (0.0-7.3) H 11/03/17 17:05 Eos % (Auto) 1.6 % (0.0-4.3) 11/03/17 17:05 Baso % (Auto) 1.0 % (0.0-1.8) 11/03/17 17:05 Lymph # 1.4 K/mm3 (1.2-5.4) 11/03/17 17:05 Beadle # 0.7 K/mm3 (0.0-0.8) 11/03/17 17:05 Eos # 0.1 K/mm3 (0.0-0.4) 11/03/17 17:05 Baso # 0.1 K/mm3 (0.0-0.1) 11/03/17 17:05 Seg Neutrophils % 66.5 % (40.0-70.0) 11/03/17 17:05 Seg Neutrophils # 4.5 K/mm3 (1.8-7.7) 11/03/17 17:05 PT 14.7 Sec. (12.2-14.9) 11/03/17 17:05 INR 1.09 (0.87-1.13) 11/03/17 17:05 APTT 37.1 Sec. (24.2-36.6) H 11/03/17 17:05 VBG pH 7.280 (7.320-7.420) L 11/04/17 06:31 Sodium 143 mmol/L (137-145) 11/03/17 17:05 Potassium 4.3 mmol/L (3.6-5.0) 11/03/17 17:05 Chloride 112.0 mmol/L (98-107) H 11/03/17 17:05 Carbon Dioxide 11 mmol/L (22-30) L 11/03/17 17:05 Anion Gap 24 mmol/L 11/03/17 17:05 BUN 60 mg/dL (9-20) H 11/03/17 17:05 Creatinine 4.0 mg/dL (0.8-1.5) H 11/03/17 17:05 Estimated GFR 18 ml/min 11/03/17 17:05 BUN/Creatinine Ratio 15 % 11/03/17 17:05 Glucose 109 mg/dL (75-100) H 11/03/17 17:05 POC Glucose 70 (70-105) 11/04/17 12:13 Hemoglobin A1c 4.6 % (4-6) 11/04/17 09:35 Lactic Acid 0.50 mmol/L (0.7-2.0) L 11/04/17 06:31 Calcium 7.5 mg/dL (8.4-10.2) L 11/03/17 17:05 Magnesium 1.80 mg/dL (1.7-2.3) 11/04/17 06:31 Total Bilirubin 0.20 mg/dL (0.1-1.2) 11/03/17 17:05 AST 17 units/L (5-40) 11/03/17 17:05 ALT 19 units/L (7-56) 11/03/17 17:05 Alkaline Phosphatase 72 units/L (35-129) 11/03/17 17:05 Total Creatine Kinase 264 units/L (55-170) H 11/04/17 06:31 CK-MB (CK-2) 9.6 ng/mL (0.0-4.0) H 11/04/17 06:31 CK-MB (CK-2) Rel Index 3.6 (0-4) 11/04/17 06:31 Troponin T 0.103 ng/mL (0.00-0.029) H* 11/04/17 06:31 NT-Pro-B Natriuret Pep 47535 pg/mL (0-900) H 11/04/17 06:31 Total Protein 6.1 g/dL (6.3-8.2) L 11/03/17 17:05 Albumin 3.5 g/dL (3.9-5) L 11/03/17 17:05 Albumin/Globulin Ratio 1.3 % 11/03/17 17:05 Triglycerides 58 mg/dL (2-149) 11/04/17 06:31 Cholesterol 113 mg/dL (50-199) 11/04/17 06:31 LDL Cholesterol Direct 59 mg/dL (50-130) 11/04/17 06:31 HDL Cholesterol 43 mg/dL (40-59) 11/04/17 06:31 Cholesterol/HDL Ratio 2.62 % 11/04/17 06:31 Lipase 15 units/L (13-60) 11/03/17 17:05 Urine Color Yellow (Yellow) 11/04/17 07:55 Urine Turbidity Clear (Clear) 11/04/17 07:55 Urine pH 5.0 (5.0-7.0) 11/04/17 07:55 Ur Specific Manning 1.012 (1.003-1.030) 11/04/17 07:55 Urine Protein 100 mg/dl mg/dL (Negative) 11/04/17 07:55 Urine Glucose (UA) 50 mg/dL (Negative) 11/04/17 07:55 Urine Ketones Neg mg/dL (Negative) 11/04/17 07:55 Urine Blood Sm (Negative) 11/04/17 07:55 Urine Nitrite Neg (Negative) 11/04/17 07:55 Urine Bilirubin Neg (Negative) 11/04/17 07:55 Urine Urobilinogen < 2.0 mg/dL (<2.0) 11/04/17 07:55 Ur Leukocyte Esterase Neg (Negative) 11/04/17 07:55 Urine WBC (Auto) 1.0 /HPF (0.0-6.0) 11/04/17 07:55 Urine RBC (Auto) 5.0 /HPF (0.0-6.0) 11/04/17 07:55 Urine Opiates Screen Presumptive negative 11/04/17 07:55 Urine Methadone Screen Presumptive negative 11/04/17 07:55 Ur Barbiturates Screen Presumptive negative 11/04/17 07:55 Ur Phencyclidine Scrn Presumptive negative 11/04/17 07:55 Ur Amphetamines Screen Presumptive negative 11/04/17 07:55 U Benzodiazepines Scrn Presumptive negative 11/04/17 07:55 Urine Cocaine Screen Presumptive negative 11/04/17 07:55 U Marijuana (THC) Screen Presumptive negative 11/04/17 07:55 Drugs of Abuse Note Disclamer 11/04/17 07:55 Blood Type AB POSITIVE 11/03/17 17:12 Antibody Screen Negative 11/03/17 17:12 Assessment and Plan Assessment and plan: I saw and evaluated the patient. I agree with the findings and the plan of care as documented in the Nurse Practitioner's~note, with the following corrections and additions. Patient was admitted with abnormal labs with the anemia and acute renal failure Patient also has shortness of breath for the last 3 days, Patient is seen and evaluated, nephrology has evaluated the patient Agree with their poor documentation and treatment plan Plan of care discussed with the patient and the family at the bedside Follow up nephrology evaluation and recommendations As the monitor H&H, transfuse as needed Continue O2 nasal cannula, BiPAP as needed
[2017-11-04] MEDS: BABY ASPIRIN PO SCH (13:35)
[2017-11-04] MEDS: APRESOLINE PO SCH (15:57)
[2017-11-04] MEDS: POTASSIUM CHLORIDE PO SCH (15:57)
[2017-11-04] MEDS: HEPARIN SUB-Q SCH ×2 (15:57→22:01)
[2017-11-04] MEDS: PLAVIX PO SCH (15:57)
[2017-11-04] MEDS ORDERED: ASPIRIN PO SCH (16:00)
[2017-11-04] MEDS ORDERED: LASIX IV SCH (18:00)
[2017-11-04] MEDS ORDERED: LASIX PO SCH (18:00)
[2017-11-04] MEDS: LASIX IV SCH (18:18)
--- NOTE | 2017-11-04 18:18 | Consultation ---
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 In ER Hb was 7.7, however pt was found to be in mild respiratory distress, CXR showed bilateral perihilar lower lobe infiltrates. Labs showed significant metabolic acidosis with serum CO2 as low as 11 along with elevated BUN/Cr at 60/4.0mg/dl. Renal consult is requested for management of CKD and evaluation for possible HD. patient usually follows up with Dr Urena for management of advanced CKD, pt recently underwent LUE AVF placement for preparation of future HD. As per pt's baseline eGFR was around ~15ml/min recently. Denies recent NSAIDs use or IV contrast exposure. Past History Past Medical History: acute CA, diabetes, heart failure, hypertension, hyperlipidemia, migraines, renal failure Past Surgical History: Other (2 Coronary stents 2011) Social history: , lives with family, smoking (current everyday smoker) Medications and Allergies Allergies Allergy/AdvReac Type Severity Reaction Status Date / Time No Known Allergies Allergy Verified 06/03/17 09:20 Home Medications Medication Instructions Recorded Confirmed Last Taken Type Furosemide [Lasix] 80 mg PO BID 01/22/17 11/04/17 11/03/17 History Aspirin [Aspirin TAB] 81 mg PO ONCE #30 tablet 04/11/17 11/04/17 11/03/17 Rx AtorvaSTATin [Lipitor] 20 mg PO QHS #30 tablet 04/11/17 11/04/17 11/03/17 Rx Labetalol [Normodyne TAB] 200 mg PO BID #60 tablet 04/11/17 11/04/17 11/03/17 Rx Potassium Chloride [Klor-Con] 20 meq PO QDAY #30 packet 04/11/17 11/04/17 Rx oxyCODONE /ACETAMINOPHEN [Percocet 1 tab PO Q6H PRN #30 tablet 04/11/1711/03/17 Rx 5/325 mg] Clopidogrel Bisulfate [Clopidogrel] 75 mg PO DAILY 06/03/17 11/04/17 11/03/17 History hydrALAZINE [Apresoline TAB] 100 mg PO DAILY 06/03/17 11/04/17 11/03/17 History Insulin Aspart [NovoLOG 100 5 unit SQ PRN PRN 06/04/17 11/04/17 1 Month Ago History UNITS/ML VIAL] ~05/10/17 Insulin Detemir [Levemir] 10 unit SQ PRN PRN 06/04/17 11/04/17 1 Month Ago History ~05/10/17 Active Meds: Active Medications Acetaminophen (Tylenol) 650 mg PO Q4H PRN PRN Reason: Pain MILD(1-3)/Fever >100.5/DAILEY Albuterol (Proventil) 2.5 mg IH Q4HRT PRN PRN Reason: Shortness Of Breath Aspirin (Baby Aspirin) 81 mg PO QDAY [facility] Last Admin: 11/04/17 13:35 Dose: Not Given Atorvastatin Calcium (Lipitor) 20 mg PO QHS [facility]ONY Bisacodyl (Dulcolax) 10 mg [place] QDAY PRN PRN Reason: Constipation unrelieved by MOM Clopidogrel Bisulfate (Plavix) 75 mg PO DAILY [facility] Last Admin: 11/04/17 15:57 Dose: 75 mg Dextrose (D50w (25gm) Syringe) 50 ml IV PRN PRN PRN Reason: Hypoglycemia Furosemide (Lasix) 60 mg IV 0600,1800 [facility] Heparin Sodium (Porcine) (Heparin) 5,000 unit SUB-Q Q8HR [facility] Last Admin: 11/04/17 15:57 Dose: 5,000 unit Hydralazine HCl (Apresoline) 100 mg PO DAILY [facility] Last Admin: 11/04/17 15:57 Dose: 100 mg Levofloxacin/Dextrose (Levaquin 500mg/100ml) 500 mg in 100 mls @ 100 mls/hr IV Q48H [facility] Insulin Aspart (Novolog) 0 units SUB-Q ACHS THONY PRN Reason: Protocol Last Admin: 11/04/17 12:12 Dose: Not Given Labetalol HCl (Normodyne) 200 mg PO BID [facility] Last Admin: 11/04/17 12:05 Dose: 200 mg Magnesium Hydroxide (Milk Of Magnesia) 30 ml PO Q4H PRN PRN Reason: Constipation Ondansetron HCl (Zofran) 4 mg IV Q8H PRN PRN Reason: N/V unrelieved by Reglan Oxycodone/Acetaminophen (Percocet 5/325) 1 tab PO Q6H PRN PRN Reason: Pain, Moderate (4-6) Potassium Chloride (Potassium Chloride) 20 meq PO QDAY [facility] Last Admin: 11/04/17 15:57 Dose: 20 meq Sodium Bicarbonate (Sodium Bicarbonate) 1,300 mg PO BID [facility] Zolpidem Tartrate (Ambien) 5 mg PO QHS PRN PRN Reason: Insomnia Review of Systems All systems: negative Constitutional: weakness, malaise Cardiovascular: edema, lightheadedness, shortness of breath, dyspnea on exertion , paroxysmal nocturnal dyspnea Exam - Vital Signs Vital signs: Vital Signs Temp Pulse Resp BP Pulse Ox 97.4 F L 74 16 176/86 100 11/03/17 16:55 11/03/17 16:55 11/03/17 16:55 11/03/17 16:55 11/03/17 16:55 - General Appearance General appearance: well-developed, well-nourished, appears stated age, moderate distress EENT: ATNC, PERRL, mucous membranes moist Neck: Present: neck supple Respiratory: Decreased Breath Sounds Heart: regular, S1S2 Gastrointestinal: Present: normoactive bowel sounds Integumentary: no rash, other (+ edema b/l LE ) Neurologic: no focal deficit, alert and oriented x3, strength 5/5 Psychiatric: mood/affect appropriate, cooperative Results - Lab Results 11/03/17 17:05 11/03/17 17:05 Most recent lab results Calcium 7.5 mg/dL (8.4-10.2) L 11/03/17 17:05 Magnesium 1.80 mg/dL (1.7-2.3) 11/04/17 06:31 Laboratory Tests 11/03/17 11/03/17 11/04/17 17:05 17:05 06:31 PT 14.7 INR 1.09 APTT 37.1 H VBG pH Total Creatine Kinase 264 H CK-MB (CK-2) 9.6 H CK-MB (CK-2) Rel Index 3.6 Troponin T 0.103 H* NT-Pro-B Natriuret Pep 35772 H Total Protein 6.1 L Albumin 3.5 L Albumin/Globulin Ratio 1.3 Triglycerides 58 Cholesterol 113 LDL Cholesterol Direct 59 HDL Cholesterol 43 Cholesterol/HDL Ratio 2.62 Lipase 15 Urine Color Urine Turbidity Urine pH Ur Specific [place] Urine Protein Urine Glucose (UA) Urine Ketones Urine Blood Urine Nitrite Urine Bilirubin Urine Urobilinogen Ur Leukocyte Esterase Urine WBC (Auto) Urine RBC (Auto) 11/04/17 11/04/17 06:31 07:55 PT INR APTT VBG pH 7.280 L Total Creatine Kinase CK-MB (CK-2) CK-MB (CK-2) Rel Index Troponin T NT-Pro-B Natriuret Pep Total Protein Albumin Albumin/Globulin Ratio Triglycerides Cholesterol LDL Cholesterol Direct HDL Cholesterol Cholesterol/HDL Ratio Lipase Urine Color Yellow Urine Turbidity Clear Urine pH 5.0 Ur Specific [place] 1.012 Urine Protein 100 mg/dl Urine Glucose (UA) 50 Urine Ketones Neg Urine Blood Sm Urine Nitrite Neg Urine Bilirubin Neg Urine Urobilinogen < 2.0 Ur Leukocyte Esterase Neg Urine WBC (Auto) 1.0 Urine RBC (Auto) 5.0 Assessment and Plan - Patient Problems (1) Metabolic acidosis Current Visit: Yes Status: Acute Plan to address problem: due to advanced CKD, pt was given IV bicarb in ER. will cont Na bicarb 1300mg po bid. If metabolic acidosis is refractory to medical treatment will consider initiation of HD (2) Hypertensive chronic kidney disease with stage 1 through stage 4 chronic kidney disease, or unspecified chronic kidney disease Current Visit: No Status: Acute Plan to address problem: resume home BP meds, started IV lasix 60mg bid for volume/bp control (3) Pulmonary edema Current Visit: Yes Status: Acute Qualifiers: Chronicity: acute Qualified Code(s): J81.0 - Acute pulmonary edema Plan to address problem: started IV lasix 60mg bid (4) Cardiomyopathy Current Visit: Yes Status: Acute Qualifiers: Cardiomyopathy type: unspecified Qualified Code(s): I42.9 - Cardiomyopathy , unspecified Plan to address problem: cont BB, lasix, hydralazine. GASPER-I/ARB on hold due to advanced CKD (5) Diabetes mellitus, type 2 Current Visit: No Status: Chronic Qualifiers: Chronic kidney disease stage: stage 4 (severe) Plan to address problem: glucose control as per primary attending (6) Chronic kidney disease, stage IV (severe) Current Visit: Yes Status: Acute Plan to address problem: supportive care for CKD, avoid further nephrotoxins, NSAIDs IV contrast. if pt develops uremic symptoms/refractory metabolic acidosis will consider initiation of HD. will consult vascular surgery for AVF evaluation/possible transposition (7) Anemia in chronic illness Current Visit: Yes Status: Acute Plan to address problem: check iron store, ferritin level, consider IV iron load if low, if replete start EPO .
[2017-11-04] MEDS ORDERED: AMBIEN PO PRN (22:00)
[2017-11-04] MEDS: SODIUM BICARBONATE PO SCH (22:01)
[2017-11-05] MEDS: HEPARIN SUB-Q SCH ×2 (06:12→16:18)
[2017-11-05] MEDS: LASIX IV SCH ×2 (06:12→18:07)
[2017-11-05 07:10] LABS: Basophils % (Auto) 0.9 % (0.0-1.8); Eosinophils % (Auto) 0.7 % (0.0-4.3); Hematocrit 21.2 % (35.5-45.6); Hemoglobin 6.9 gm/dl (11.8-15.2); Mean Corpuscular HGB Conc 33 % (32-34); Mean Corpuscular Volume 75 fl (84-94); Platelet Count 190 K/mm3 (140-440); Red Blood Count 2.81 M/mm3 (3.65-5.03); Red Cell Distribution Width 17.7 % (13.2-15.2); White Blood Count 7.3 K/mm3 (4.5-11.0)
[2017-11-05 07:14] LABS: Mean Corpuscular Hemoglobin 25 pg (28-32)
[2017-11-05 07:43] LABS: Albumin 2.9 g/dL (3.9-5); Bilirubin,Total 0.3 mg/dL (0.1-1.2); Calcium 7.8 mg/dL (8.4-10.2); Chloride 113.8 mmol/L (98-107); Potassium 3.9 mmol/L (3.6-5.0); Total Protein 5.7 g/dL (6.3-8.2)
[2017-11-05] MEDS: NOVOLOG SUB-Q SCH ×4 (08:30→23:28)
--- NOTE | 2017-11-05 08:33 | Progress Note ---
Assessment and Plan Assessment and plan: --Acute on chronic hypoxic respiratory failure; secondary to fluid overload Continue oxygen, titrate O2 sats to 90%, BiPAP as needed --Acute renal failure; nephrology following Closely monitor renal function, avoid nephrotoxic medications --Immature AV fistula left upper extremity; vascular evaluated the patient Recommend outpatient revision of AV fistula in 1-2 weeks --Dyslipidemia; stable on lipid-lowering medication --Nonspecific elevation of troponins; patient has coronary artery disease Cardiology evaluation noting appreciated --History of melena with anemia Hemoglobin today 6.9, transfuse 1 unit of PRBC, GI consultation for further evaluation and management aspirin and Plavix were held by cardiology, Anemia partly secondary to acute renal failure --Community-acquired pneumonia; continue Levaquin renal dose, supportive care, follow cultures --Hypertension; moderate control, continue current antihypertensives and when necessary medications --DVT prophylaxis; SCDs, no pharmacological anticoagulation in view of GI bleeding Plan of care discussed with the patient and the family member at the bedside History Interval history: Patient seen and examined medical records reviewed The patient had drop in hemoglobin to 6.9 today No evidence of bleeding Complaints of shortness of breath on nasal cannula oxygen Hospitalist Physical - Constitutional Vitals: Temp Pulse Resp BP Pulse Ox 98.8 F 86 20 158/75 100 11/05/17 04:52 11/05/17 04:52 11/05/17 04:52 11/05/17 04:52 11/05/17 04:52 General appearance: Present: no acute distress, well-nourished - EENT Eyes: Present: PERRL, EOM intact - Neck Neck: Present: supple, normal ROM - Respiratory Respiratory effort: normal Respiratory: bilateral: diminished, negative: rales, rhonchi, wheezing - Cardiovascular Rhythm: regular Heart Sounds: Present: S1 & S2 - Extremities Extremities: no ischemia, No edema - Abdominal General gastrointestinal: soft, non-tender, non-distended, normal bowel sounds - Integumentary Integumentary: Present: clear, warm - Psychiatric Psychiatric: appropriate mood/affect, cooperative - Neurologic Neurologic: CNII-XII intact, moves all extremities Results - Labs CBC & Chem 7: 11/05/17 06:16 11/05/17 06:16 Labs: Laboratory Last Values WBC 7.3 K/mm3 (4.5-11.0) 11/05/17 06:16 RBC 2.81 M/mm3 (3.65-5.03) L 11/05/17 06:16 Hgb 6.9 gm/dl (11.8-15.2) L 11/05/17 06:16 Hct 21.2 % (35.5-45.6) L 11/05/17 06:16 MCV 75 fl (84-94) L 11/05/17 06:16 MCH 25 pg (28-32) L 11/05/17 06:16 MCHC 33 % (32-34) 11/05/17 06:16 RDW 17.7 % (13.2-15.2) H 11/05/17 06:16 Plt Count 190 K/mm3 (140-440) 11/05/17 06:16 Lymph % (Auto) 14.6 % (13.4-35.0) 11/05/17 06:16 [place] % (Auto) 11.9 % (0.0-7.3) H 11/05/17 06:16 Eos % (Auto) 0.7 % (0.0-4.3) 11/05/17 06:16 Baso % (Auto) 0.9 % (0.0-1.8) 11/05/17 06:16 Lymph # 1.1 K/mm3 (1.2-5.4) L 11/05/17 06:16 [place] # 0.9 K/mm3 (0.0-0.8) H 11/05/17 06:16 Eos # 0.1 K/mm3 (0.0-0.4) 11/05/17 06:16 Baso # 0.1 K/mm3 (0.0-0.1) 11/05/17 06:16 Seg Neutrophils % 71.9 % (40.0-70.0) H 11/05/17 06:16 Seg Neutrophils # 5.2 K/mm3 (1.8-7.7) 11/05/17 06:16 PT 14.7 Sec. (12.2-14.9) 11/03/17 17:05 INR 1.09 (0.87-1.13) 11/03/17 17:05 APTT 37.1 Sec. (24.2-36.6) H 11/03/17 17:05 VBG pH 7.280 (7.320-7.420) L 11/04/17 06:31 Sodium 146 mmol/L (137-145) H 11/05/17 06:16 Potassium 3.9 mmol/L (3.6-5.0) 11/05/17 06:16 Chloride 113.8 mmol/L (98-107) H 11/05/17 06:16 Carbon Dioxide 13 mmol/L (22-30) L 11/05/17 06:16 Anion Gap 23 mmol/L 11/05/17 06:16 BUN 56 mg/dL (9-20) H 11/05/17 06:16 Creatinine 4.1 mg/dL (0.8-1.5) H 11/05/17 06:16 Estimated GFR 18 ml/min 11/05/17 06:16 BUN/Creatinine Ratio 14 % 11/05/17 06:16 Glucose 76 mg/dL (75-100) 11/05/17 06:16 POC Glucose 84 (70-105) 11/04/17 22:30 Hemoglobin A1c 4.6 % (4-6) 11/04/17 09:35 Lactic Acid 0.50 mmol/L (0.7-2.0) L 11/04/17 06:31 Calcium 7.8 mg/dL (8.4-10.2) L 11/05/17 06:16 Magnesium 1.80 mg/dL (1.7-2.3) 11/04/17 06:31 Iron 21 ug/dL (49-181) L 11/05/17 06:16 TIBC 224 mcg/dL (250-450) L 11/05/17 06:16 Ferritin 51.0 ng/mL (13.0-400.0) 11/05/17 06:16 Total Bilirubin 0.30 mg/dL (0.1-1.2) 11/05/17 06:16 AST 12 units/L (5-40) 11/05/17 06:16 ALT 12 units/L (7-56) 11/05/17 06:16 Alkaline Phosphatase 66 units/L (35-129) 11/05/17 06:16 Total Creatine Kinase 264 units/L (55-170) H 11/04/17 06:31 CK-MB (CK-2) 9.6 ng/mL (0.0-4.0) H 11/04/17 06:31 CK-MB (CK-2) Rel Index 3.6 (0-4) 11/04/17 06:31 Troponin T 0.128 ng/mL (0.00-0.029) H* D 11/05/17 06:16 NT-Pro-B Natriuret Pep 96649 pg/mL (0-900) H 11/04/17 06:31 Total Protein 5.7 g/dL (6.3-8.2) L 11/05/17 06:16 Albumin 2.9 g/dL (3.9-5) L 11/05/17 06:16 Albumin/Globulin Ratio 1.0 % 11/05/17 06:16 Triglycerides 58 mg/dL (2-149) 11/04/17 06:31 Cholesterol 113 mg/dL (50-199) 11/04/17 06:31 LDL Cholesterol Direct 59 mg/dL (50-130) 11/04/17 06:31 HDL Cholesterol 43 mg/dL (40-59) 11/04/17 06:31 Cholesterol/HDL Ratio 2.62 % 11/04/17 06:31 Lipase 15 units/L (13-60) 11/03/17 17:05 Urine Color Yellow (Yellow) 11/04/17 07:55 Urine Turbidity Clear (Clear) 11/04/17 07:55 Urine pH 5.0 (5.0-7.0) 11/04/17 07:55 Ur Specific [place] 1.012 (1.003-1.030) 11/04/17 07:55 Urine Protein 100 mg/dl mg/dL (Negative) 11/04/17 07:55 Urine Glucose (UA) 50 mg/dL (Negative) 11/04/17 07:55 Urine Ketones Neg mg/dL (Negative) 11/04/17 07:55 Urine Blood Sm (Negative) 11/04/17 07:55 Urine Nitrite Neg (Negative) 11/04/17 07:55 Urine Bilirubin Neg (Negative) 11/04/17 07:55 Urine Urobilinogen < 2.0 mg/dL (<2.0) 11/04/17 07:55 Ur Leukocyte Esterase Neg (Negative) 11/04/17 07:55 Urine WBC (Auto) 1.0 /HPF (0.0-6.0) 11/04/17 07:55 Urine RBC (Auto) 5.0 /HPF (0.0-6.0) 11/04/17 07:55 Urine Opiates Screen Presumptive negative 11/04/17 07:55 Urine Methadone Screen Presumptive negative 11/04/17 07:55 Ur Barbiturates Screen Presumptive negative 11/04/17 07:55 Ur Phencyclidine Scrn Presumptive negative 11/04/17 07:55 Ur Amphetamines Screen Presumptive negative 11/04/17 07:55 U Benzodiazepines Scrn Presumptive negative 11/04/17 07:55 Urine Cocaine Screen Presumptive negative 11/04/17 07:55 U Marijuana (THC) Screen Presumptive negative 11/04/17 07:55 Drugs of Abuse Note Disclamer 11/04/17 07:55 Blood Type AB POSITIVE 11/03/17 17:12 Antibody Screen Negative 11/03/17 17:12
[2017-11-05] MEDS ORDERED: NACL 0.9% 500 ML 500 ML IV ONE ×2 (08:34→14:00)
[2017-11-05] MEDS: SODIUM BICARBONATE PO SCH ×3 (09:44→22:03)
[2017-11-05] MEDS: BABY ASPIRIN PO SCH (09:45)
[2017-11-05] MEDS: NORMODYNE PO SCH ×2 (09:45→22:04)
[2017-11-05] MEDS: POTASSIUM CHLORIDE PO SCH (09:45)
[2017-11-05] MEDS: APRESOLINE PO SCH ×3 (09:45→22:03)
[2017-11-05] MEDS: PLAVIX PO SCH (09:45)
[2017-11-05] MEDS ORDERED: LEVAQUIN 750MG/150ML 750 MG/150 ML BAG IV SCH (10:00)
--- NOTE | 2017-11-05 11:20 | Progress Note ---
Assessment and Plan - Patient Problems (1) Metabolic acidosis Current Visit: Yes Status: Acute Plan to address problem: increase Na bicarb 1300mg po to tid. If metabolic acidosis is refractory to medical treatment will consider initiation of HD (2) Hypertensive chronic kidney disease with stage 1 through stage 4 chronic kidney disease, or unspecified chronic kidney disease Current Visit: No Status: Acute Plan to address problem: cont IV lasix 60mg bid for volume/bp control, increase hydralazine to 100mg po tid (3) Pulmonary edema Current Visit: Yes Status: Acute Qualifiers: Chronicity: acute Qualified Code(s): J81.0 - Acute pulmonary edema Plan to address problem: cont IV lasix 60mg bid (4) Cardiomyopathy Current Visit: Yes Status: Acute Qualifiers: Cardiomyopathy type: unspecified Qualified Code(s): I42.9 - Cardiomyopathy , unspecified Plan to address problem: cont BB, lasix, hydralazine. GASPER-I/ARB on hold due to advanced CKD (5) Diabetes mellitus, type 2 Current Visit: No Status: Chronic Qualifiers: Chronic kidney disease stage: stage 4 (severe) Plan to address problem: glucose control as per primary attending (6) Chronic kidney disease, stage IV (severe) Current Visit: Yes Status: Acute Plan to address problem: supportive care for CKD, avoid further nephrotoxins, NSAIDs IV contrast. if pt develops uremic symptoms/refractory metabolic acidosis will consider initiation of HD. in that case will consult vascular for permcath. pt will need transposition of AVF as outpatient. d/w dr Abarca (7) Anemia in chronic illness Current Visit: Yes Status: Acute Plan to address problem: hb < 6.9 transfuse with 1 PRBC. EPO [id number] sc today . Subjective Date of service: 11/05/17 Principal diagnosis: CKD 4 Interval history: Pt awake, alert in no acute respiratory distress. Objective - Vital Signs Vital signs: Vital Signs - 12hr 11/05/17 11/05/17 11/05/17 01:14 04:52 08:30 Temperature 99.1 F 98.8 F Pulse Rate 81 86 86 Respiratory 20 20 Rate Blood Pressure 160/74 158/75 172/83 O2 Sat by Pulse 97 100 98 Oximetry 11/05/17 09:45 Temperature Pulse Rate 86 Respiratory Rate Blood Pressure 172/83 O2 Sat by Pulse Oximetry - General Appearance General appearance: appears stated age, chronically ill EENT: ATNC, PERRL, mucous membranes moist Neck: no JVD Respiratory: Present: Decreased Breath Sounds Cardiology: regular, S1S2 Gastrointestinal: normoactive bowel sounds Integumentary: no rash, other (+ edema b/l LE ) Neurologic: no focal deficit, alert and oriented x3, strength 5/5, CN 3-12 intact Psychiatric: mood/affect appropriate, cooperative - Lab 11/05/17 06:16 11/05/17 06:16 Most recent lab results Calcium 7.8 mg/dL (8.4-10.2) L 11/05/17 06:16 Magnesium 1.80 mg/dL (1.7-2.3) 11/04/17 06:31
--- NOTE | 2017-11-05 12:50 | Consultation ---
History of Present Illness Consult date: 11/05/17 Requesting physician: PAULY GERARD Consult reason: elevated troponin History of present illness: The pt is a 67 YO male with a past medical history significant for CAD s/p PCI of 1st obtuse and distal circ in 2011, diastolic HF, HTN, HLP, DM, CKD, ICH, pulm HTN, and tobacco use. He is followed in our office by Dr. Merlos. He presented at the request of his PCP for abnormal lab results. Pt reportedly had labwork done last Friday per his PCP. Following admission, he was found to be severely anemic with H/H 7.7/23.5. Troponins were also found to be mildly elevated and thus cardiology has been consulted. On evaluation, pt does admit to ROSS for the past several weeks and some black, tarry stools last month. He denies any chest pain, palpitations, n/v, diaphoresis, dizziness, or syncope. Lexiscan MPI stress test 02/2016 was negative for ischemia. Echo done 01/25/2017 demonstrated EF 55-60%, biatrial mild dilation, moderate to severe LVH, RV mildly dilated, mild to moderate AR, mild MR, moderate pulmonary HTN, moderate pleural effusion, small pericardial effusion. Past History Past Medical History: CAD, diabetes, heart failure, hypertension, hyperlipidemia , migraines, renal failure Past Surgical History: Other (2 Coronary stents 2011) Social history: , lives with family, smoking (current everyday smoker) Medications and Allergies Allergies Allergy/AdvReac Type Severity Reaction Status Date / Time No Known Allergies Allergy Verified 06/03/17 09:20 Home Medications Medication Instructions Recorded Confirmed Last Taken Type Furosemide [Lasix] 80 mg PO BID 01/22/17 11/04/17 11/03/17 History Aspirin [Aspirin TAB] 81 mg PO ONCE #30 tablet 04/11/17 11/04/17 11/03/17 Rx AtorvaSTATin [Lipitor] 20 mg PO QHS #30 tablet 04/11/17 11/04/17 11/03/17 Rx Labetalol [Normodyne TAB] 200 mg PO BID #60 tablet 04/11/17 11/04/17 11/03/17 Rx Potassium Chloride [Klor-Con] 20 meq PO QDAY #30 packet 04/11/17 11/04/17 Rx oxyCODONE /ACETAMINOPHEN [Percocet 1 tab PO Q6H PRN #30 tablet 04/11/1711/03/17 Rx 5/325 mg] Clopidogrel Bisulfate [Clopidogrel] 75 mg PO DAILY 06/03/17 11/04/17 11/03/17 History hydrALAZINE [Apresoline TAB] 100 mg PO DAILY 06/03/17 11/04/17 11/03/17 History Insulin Aspart [NovoLOG 100 5 unit SQ PRN PRN 06/04/17 11/04/17 1 Month Ago History UNITS/ML VIAL] ~05/10/17 Insulin Detemir [Levemir] 10 unit SQ PRN PRN 06/04/17 11/04/17 1 Month Ago History ~05/10/17 Active Meds: Active Medications Acetaminophen (Tylenol) 650 mg PO Q4H PRN PRN Reason: Pain MILD(1-3)/Fever >100.5/DAILEY Albuterol (Proventil) 2.5 mg IH Q4HRT PRN PRN Reason: Shortness Of Breath Aspirin (Baby Aspirin) 81 mg PO QDAY [facility] Last Admin: 11/05/17 09:45 Dose: 81 mg Atorvastatin Calcium (Lipitor) 20 mg PO QHS [facility] Last Admin: 11/04/17 22:01 Dose: 20 mg Bisacodyl (Dulcolax) 10 mg ND QDAY PRN PRN Reason: Constipation unrelieved by MOM Clopidogrel Bisulfate (Plavix) 75 mg PO DAILY [facility] Last Admin: 11/05/17 09:45 Dose: 75 mg Dextrose (D50w (25gm) Syringe) 50 ml IV PRN PRN PRN Reason: Hypoglycemia Epoetin Karl (Epogen) 20,000 unit SUB-Q ONCE NR Stop: 11/05/17 19:00 Furosemide (Lasix) 60 mg IV 0600,1800 [facility] Last Admin: 11/05/17 06:12 Dose: 60 mg Heparin Sodium (Porcine) (Heparin) 5,000 unit SUB-Q Q8HR [facility] Last Admin: 11/05/17 06:12 Dose: 5,000 unit Hydralazine HCl (Apresoline) 100 mg PO TID [facility] Levofloxacin/Dextrose (Levaquin 500mg/100ml) 500 mg in 100 mls @ 100 mls/hr IV Q48H [facility] Insulin Aspart (Novolog) 0 units SUB-Q ACHS [facility] PRN Reason: Protocol Last Admin: 11/05/17 12:18 Dose: Not Given Labetalol HCl (Normodyne) 200 mg PO BID [facility] Last Admin: 11/05/17 09:45 Dose: 200 mg Magnesium Hydroxide (Milk Of Magnesia) 30 ml PO Q4H PRN PRN Reason: Constipation Ondansetron HCl (Zofran) 4 mg IV Q8H PRN PRN Reason: N/V unrelieved by Reglan Oxycodone/Acetaminophen (Percocet 5/325) 1 tab PO Q6H PRN PRN Reason: Pain, Moderate (4-6) Potassium Chloride (Potassium Chloride) 20 meq PO QDAY [facility] Last Admin: 11/05/17 09:45 Dose: 20 meq Sodium Bicarbonate (Sodium Bicarbonate) 1,300 mg PO TID [facility] Zolpidem Tartrate (Ambien) 5 mg PO QHS PRN PRN Reason: Insomnia Review of Systems Constitutional: no weight loss, no weight gain, no fever, no chills, no sweats Ears, nose, mouth and throat: no ear pain, no nose pain Cardiovascular: shortness of breath, dyspnea on exertion, no chest pain, no orthopnea, no palpitations, no rapid/irregular heart beat, no edema, no syncope , no lightheadedness, no leg edema Respiratory: shortness of breath, dyspnea on exertion, no cough, no congestion, no wheezing, no pain on inspiration Gastrointestinal: other (tarry stools ), no abdominal pain, no nausea, no vomiting, no diarrhea, no constipation, no hematemesis, no BRBPR Genitourinary Male: no dysuria, no hematuria, no flank pain, no discharge, no urinary frequency, no urinary hesitancy Musculoskeletal: no neck stiffness, no neck pain, no shooting arm pain, no arm numbness/tingling, no low back pain, no shooting leg pain, no leg numbness/ tingling, no redness of joints Integumentary: no rash, no pruritis, no redness, no sores, no wounds Neurological: no head injury, no paralysis, no weakness, no parathesias, no numbness, no tingling, no seizures, no syncope Psychiatric: no anxiety Endocrine: no cold intolerance, no heat intolerance Hematologic/Lymphatic: no easy bruising, no easy bleeding, no lymphadenopathy Allergic/Immunologic: no urticaria, no wheezing, no persistent infections Physical Examination Vital Signs Temp Pulse Resp BP Pulse Ox 97.4 F L 74 16 176/86 100 11/03/17 16:55 11/03/17 16:55 11/03/17 16:55 11/03/17 16:55 11/03/17 16:55 General appearance: no acute distress HEENT: Positive: PERRL, Normocephaly, Mucus Membranes Moist Neck: Positive: neck supple, trachea midline Cardiac: Positive: Reg Rate and Rhythm, S1/S2 Lungs: Positive: clear to auscultation Neuro: Positive: Grossly Intact, Cranial Nerve 2-12 Intact Abdomen: Positive: Unremarkable, Soft, Active Bowel Sounds. Negative: Tender Skin: Positive: Clear. Negative: Rash, Wound Musculoskeletal: No Fluid Collection, No Pain, Normal Range of Motion Extremities: Absent: edema Results 11/05/17 06:16 11/05/17 06:16 Cardiac Enzymes 11/05/17 Range/Units 06:16 AST 12 (5-40) units/L CBC 11/05/17 Range/Units 06:16 WBC 7.3 (4.5-11.0) K/mm3 RBC 2.81 L (3.65-5.03) M/mm3 Hgb 6.9 L (11.8-15.2) gm/dl Hct 21.2 L (35.5-45.6) % Plt Count 190 (140-440) K/mm3 Lymph # 1.1 L (1.2-5.4) K/mm3 Johnson # 0.9 H (0.0-0.8) K/mm3 Eos # 0.1 (0.0-0.4) K/mm3 Baso # 0.1 (0.0-0.1) K/mm3 Comprehensive Metabolic Panel 11/05/17 Range/Units 06:16 Sodium 146 H (137-145) mmol/L Potassium 3.9 (3.6-5.0) mmol/L Chloride 113.8 H (98-107) mmol/L Carbon Dioxide 13 L (22-30) mmol/L BUN 56 H (9-20) mg/dL Creatinine 4.1 H (0.8-1.5) mg/dL Glucose 76 (75-100) mg/dL Calcium 7.8 L (8.4-10.2) mg/dL AST 12 (5-40) units/L ALT 12 (7-56) units/L Alkaline Phosphatase 66 (35-129) units/L Total Protein 5.7 L (6.3-8.2) g/dL Albumin 2.9 L (3.9-5) g/dL - Imaging and Cardiology Echo: report reviewed (01/25/2017 demonstrated EF 55-60%, biatrial mild dilation , moderate to severe LVH, RV mildly dilated, mild to moderate AR, mild MR, moderate pulmonary HTN, moderate pleural effusion, small pericardial effusion. ) EKG: report reviewed, image reviewed EKG interpretations - Telemetry EKG Rhythm: Sinus Rhythm - EKG Sinus rhythms and dysrhythmias: sinus rhythm Assessment and Plan Assessment: Severe symptomatic anemia ? GIB Elevated troponin - ECG with NAF; pt denies chest pain; currently nonspecific in setting of severe anemia and CKD; cont to trend with CK-MB CAD s/p PCI of 1st obtuse and distal circ in 2011 ? PNA - CXR with bilateral lower lobe infiltrates; further eval/management per primary. CKD HTN HLP DM Plan: Currently stable cardiac status. Hold DAPT in setting of severe anemia and possible GIB. PCI x 2 done in 2011 and pt with no current chest pain, EKG with NAF. Recommend GI consultation per primary. Recommend PRBC tx per primary to maintain Hgb ~10 Cont to trend Mitzi. Consider repeat stress test as OP once medically stabilized. Volume optimization per nephrology. Assessment and plan reviewed with pt and pt's at bedside. The patient has been seen in conjunction with Dr. Jennifer Webb who agrees with the assessment and plan of care.
--- NOTE | 2017-11-05 13:44 | Consultation ---
History of Present Illness - Reason for Consult Consult date: 11/05/17 Immature AV Fistula Left Upper Extremity - History of Present Illness This patient is a 67-year-old [place] male that was admitted via the emergency room on 11/04/2017. He was evaluated as an outpatient and noted to be anemic. Therefore he was sent to the emergency room. He was found to be in respiratory distress and has since been admitted to the hospitalist service. He has chronic kidney disease , not yet on hemodialysis. Nephrology has been consulted. He had a brachial basilic AV fistula created in May [address] Anival Lagunas. A vascular surgery consult has been requested to further evaluate an immature left upper extremity AV fistula. Past History Past Medical History: CAD, diabetes, heart failure, hypertension, hyperlipidemia , migraines, renal failure Past Surgical History: PTCA (coronary stent placement 2), Other (left upper extremity brachial basilic (first stage) AV fistula creation May 2017) Social history: , lives with family (), smoking (current everyday smoker), other (retired, previously employed at a [employer]) Family history: no significant family history Medications and Allergies Allergies Allergy/AdvReac Type Severity Reaction Status Date / Time No Known Allergies Allergy Verified 06/03/17 09:20 Home Medications Medication Instructions Recorded Confirmed Last Taken Type Furosemide [Lasix] 80 mg PO BID 01/22/17 11/04/17 11/03/17 History Aspirin [Aspirin TAB] 81 mg PO ONCE #30 tablet 04/11/17 11/04/17 11/03/17 Rx AtorvaSTATin [Lipitor] 20 mg PO QHS #30 tablet 04/11/17 11/04/17 11/03/17 Rx Labetalol [Normodyne TAB] 200 mg PO BID #60 tablet 04/11/17 11/04/17 11/03/17 Rx Potassium Chloride [Klor-Con] 20 meq PO QDAY #30 packet 04/11/17 11/04/17 Rx oxyCODONE /ACETAMINOPHEN [Percocet 1 tab PO Q6H PRN #30 tablet 04/11/1711/03/17 Rx 5/325 mg] Clopidogrel Bisulfate [Clopidogrel] 75 mg PO DAILY 06/03/17 11/04/17 11/03/17 History hydrALAZINE [Apresoline TAB] 100 mg PO DAILY 06/03/17 11/04/17 11/03/17 History Insulin Aspart [NovoLOG 100 5 unit SQ PRN PRN 06/04/17 11/04/17 1 Month Ago History UNITS/ML VIAL] ~05/10/17 Insulin Detemir [Levemir] 10 unit SQ PRN PRN 06/04/17 11/04/17 1 Month Ago History ~05/10/17 Active Meds: Active Medications Acetaminophen (Tylenol) 650 mg PO Q4H PRN PRN Reason: Pain MILD(1-3)/Fever >100.5/DAILEY Albuterol (Proventil) 2.5 mg IH Q4HRT PRN PRN Reason: Shortness Of Breath Atorvastatin Calcium (Lipitor) 20 mg PO QHS [facility] Last Admin: 11/04/17 22:01 Dose: 20 mg Bisacodyl (Dulcolax) 10 mg [place] QDAY PRN PRN Reason: Constipation unrelieved by MOM Dextrose (D50w (25gm) Syringe) 50 ml IV PRN PRN PRN Reason: Hypoglycemia Epoetin Karl (Epogen) 20,000 unit SUB-Q ONCE NR Stop: 11/05/17 19:00 Furosemide (Lasix) 60 mg IV 0600,1800 [facility] Last Admin: 11/05/17 06:12 Dose: 60 mg Heparin Sodium (Porcine) (Heparin) 5,000 unit SUB-Q Q8HR [facility] Last Admin: 11/05/17 06:12 Dose: 5,000 unit Hydralazine HCl (Apresoline) 100 mg PO TID [facility] Levofloxacin/Dextrose (Levaquin 500mg/100ml) 500 mg in 100 mls @ 100 mls/hr IV Q48H [facility] Sodium Chloride (Nacl 0.9% 500 Ml) 500 mls @ 0 mls/hr IV ONCE ONE PRN Reason: As Directed Stop: 11/05/17 14:01 Insulin Aspart (Novolog) 0 units SUB-Q ACHS [facility] PRN Reason: Protocol Last Admin: 11/05/17 12:18 Dose: Not Given Labetalol HCl (Normodyne) 200 mg PO BID [facility] Last Admin: 11/05/17 09:45 Dose: 200 mg Magnesium Hydroxide (Milk Of Magnesia) 30 ml PO Q4H PRN PRN Reason: Constipation Ondansetron HCl (Zofran) 4 mg IV Q8H PRN PRN Reason: N/V unrelieved by Reglan Oxycodone/Acetaminophen (Percocet 5/325) 1 tab PO Q6H PRN PRN Reason: Pain, Moderate (4-6) Potassium Chloride (Potassium Chloride) 20 meq PO QDAY [facility] Last Admin: 11/05/17 09:45 Dose: 20 meq Sodium Bicarbonate (Sodium Bicarbonate) 1,300 mg PO TID [facility] Zolpidem Tartrate (Ambien) 5 mg PO QHS PRN PRN Reason: Insomnia Review of Systems All systems: negative Exam - Constitutional Vitals: Temp Pulse Resp BP Pulse Ox 98.8 F 86 20 172/83 98 11/05/17 04:52 11/05/17 09:45 11/05/17 04:52 11/05/17 09:45 11/05/17 08:30 General appearance: Present: no acute distress - EENT Eyes: Present: EOM intact ENT: hearing intact - Respiratory Respiratory effort: labored (shallow breathing with oxygen supplementation) - Extremities Extremities: abnormal (left upper arm AV fistula with easily palpable thrill along the medial aspect of his upper arm) - Psychiatric Psychiatric: appropriate mood/affect, intact judgment & insight, cooperative - Neurologic Neurologic: no focal deficits Results - Labs CBC & Chem 7: 11/05/17 06:16 11/05/17 06:16 Labs: Abnormal lab results 11/03/17 11/04/17 11/05/17 Range/Units 17:12 20:21 00:34 RBC (3.65-5.03) M/mm3 Hgb (11.8-15.2) gm/dl Hct (35.5-45.6) % MCV (84-94) fl MCH (28-32) pg RDW (13.2-15.2) % Mcmullen % (Auto) (0.0-7.3) % Lymph # (1.2-5.4) K/mm3 Mcmullen # (0.0-0.8) K/mm3 Seg Neutrophils % (40.0-70.0) % Sodium (137-145) mmol/L Chloride (98-107) mmol/L Carbon Dioxide (22-30) mmol/L BUN (9-20) mg/dL Creatinine (0.8-1.5) mg/dL Calcium (8.4-10.2) mg/dL Iron (49-181) ug/dL TIBC (250-450) mcg/dL Troponin T 0.083 H 0.088 H (0.00-0.029) ng/mL Total Protein (6.3-8.2) g/dL Albumin (3.9-5) g/dL Crossmatch See Detail 11/05/17 11/05/17 11/05/17 Range/Units 06:16 06:16 06:16 RBC 2.81 L (3.65-5.03) M/mm3 Hgb 6.9 L (11.8-15.2) gm/dl Hct 21.2 L (35.5-45.6) % MCV 75 L (84-94) fl MCH 25 L (28-32) pg RDW 17.7 H (13.2-15.2) % Mcmullen % (Auto) 11.9 H (0.0-7.3) % Lymph # 1.1 L (1.2-5.4) K/mm3 Mcmullen # 0.9 H (0.0-0.8) K/mm3 Seg Neutrophils % 71.9 H (40.0-70.0) % Sodium 146 H (137-145) mmol/L Chloride 113.8 H (98-107) mmol/L Carbon Dioxide 13 L (22-30) mmol/L BUN 56 H (9-20) mg/dL Creatinine 4.1 H (0.8-1.5) mg/dL Calcium 7.8 L (8.4-10.2) mg/dL Iron 21 L (49-181) ug/dL TIBC 224 L (250-450) mcg/dL Troponin T 0.128 H* D (0.00-0.029) ng/mL Total Protein 5.7 L (6.3-8.2) g/dL Albumin 2.9 L (3.9-5) g/dL Crossmatch Assessment and Plan This patient is known to our service. He has chronic kidney disease not yet on hemodialysis. He status post the first stage of a left upper extremity brachial basilic AV fistula. The fistula has a good thrill, but needs to be revised with transposition and elevation. This will be done as an outpatient once the patient has been medically optimized. We discussed this with the patient as well as his at the bedside. They will make an appointment to follow with Dr. Lagunas in the next 1-2 weeks.
[2017-11-05 20:01] LABS: Creatine Kinase MB 6.1 ng/mL (0.0-4.0)
[2017-11-06 06:12] LABS: Calcium 7.6 mg/dL (8.4-10.2); Chloride 111.5 mmol/L (98-107)
[2017-11-06 06:15] LABS: Hematocrit 23.7 % (35.5-45.6); Hemoglobin 7.8 gm/dl (11.8-15.2); Mean Corpuscular HGB Conc 33 % (32-34); Mean Corpuscular Volume 77 fl (84-94); Platelet Count 198 K/mm3 (140-440); Red Blood Count 3.09 M/mm3 (3.65-5.03); Red Cell Distribution Width 17.6 % (13.2-15.2); White Blood Count 8.1 K/mm3 (4.5-11.0)
[2017-11-06 06:16] LABS: Mean Corpuscular Hemoglobin 25 pg (28-32)
[2017-11-06] MEDS: LASIX IV SCH (06:28)
[2017-11-06] MEDS: NOVOLOG SUB-Q SCH ×3 (07:30→16:30)
[2017-11-06] MEDS ORDERED: NACL 0.9% 1000 ML 1,000 ML IV SCH (08:00)
[2017-11-06] MEDS: APRESOLINE PO SCH ×3 (08:00→22:31)
[2017-11-06] MEDS: SODIUM BICARBONATE PO SCH ×3 (08:00→22:32)
[2017-11-06] MEDS ORDERED: AMIDATE IV ONE ×2 (09:48→09:56)
--- NOTE | 2017-11-06 09:51 | Event Note ---
Date: 11/06/17 Pt for EGD today per Dr. Mccoy. Pt off of floor for AM rounds. Per assessment yesterday, pt is currently at moderate cardiovascular risk for EGD/colonoscopy. There are no immediate cardiac contraindications to proceeding with EGD/ colonoscopy at this time. D/w Dr. Mccoy. Jv LOPEZ, FIELD OBSERVER / DR. LOS L[place]ON
--- NOTE | 2017-11-06 09:54 | Anesthesia Consultation ---
Anesthesia Consult and Med Hx Date of service: 11/06/17 - Airway ROM Head & Neck: Adequate Mental/Hyoid Distance: Adequate Mallampati Class: Class II Intubation Access Assessment: Probably Good - Pulmonary Exam CTA: Yes - Cardiac Exam Cardiac Exam: RRR Anesthetic Concerns: only 1 tooth remaining - Pre-Operative Health Status ASA Pre-Surgery Classification: ASA4 Proposed Anesthetic Plan: MAC - Pulmonary Hx Smoking: Yes Hx Asthma: Yes SOB: Yes (upon exertion ) COPD: Yes Hx Pneumonia: Yes Hx Sleep Apnea: Yes (no cpap use ) - Cardiovascular System Hx Hypertension: Yes Hx Coronary Artery Disease: Yes (VT x3 Stents x2) Hx Heart Attack/AMI: Yes Hx Angina: No (Denies chest pain and tightness) Hx Percutaneous Transluminal Coronary Angioplasty (PTCA): Yes (2011) Hx Peripheral Vascular Disease: Yes - Central Nervous System CVA: Yes (2014) Hx Psychiatric Problems: No - Endocrine Hx Renal Disease: Yes Hx End Stage Renal Disease: Yes Hx Insulin Dependent Diabetes: Yes (99) - Hematic Hx Anemia: Yes (Hgb 7.8) Hx Sickle Cell Disease: No - Other Systems Hx Cancer: No - Additional Comments Anesthesia Medical History Comments: Pt has been evaluated by cardiology this admission. Lexiscan 03/02 was negative for ischemia. ECHO 01/31 showed EF 55-60%, LVH, Mod AR and pul htn. Cxr shows LL infiltrates.
--- NOTE | 2017-11-06 09:57 | Anesthesia Day of Surgery ---
Anesthesia Day of Surgery - Day of Surgery Patient Examined: Yes Patient H&P Reviewed: Yes Patient is NPO: Yes Cardiac Clearance: Yes
[2017-11-06] MEDS: NORMODYNE PO SCH ×2 (10:00→22:31)
[2017-11-06] MEDS: POTASSIUM CHLORIDE PO SCH (10:00)
--- NOTE | 2017-11-06 10:10 | Gastroenterology Consultation ---
History of Present Illness - Reason for Consult Consult date: 11/06/17 anemia/melena Requesting physician: PAULY GERARD - History of Present Illness Mr Strickland is a 67 yo aam with h/o cad s/p PCI in 2011 and ckd who presents to the ED due to abnormal labs (anemia) as outpatient. Patient reports generalized weakness and occasional sob, but otherwise he does not verbalize significant complaints at this time. He is not aware of any overt gi bleeding or melena prior to admission. He denies abdominal pain, change in bowel habits , or nsaid's. He has a h/o ckd, with plans for possible dialysis per chart review. He denies prior egd or colonoscopy. patient has been on plavix up until admission which has been stopped. Past History Past Medical History: CAD, diabetes, heart failure, hypertension, hyperlipidemia , migraines, renal failure Past Surgical History: PTCA (coronary stent placement 2), Other (left upper extremity brachial basilic (first stage) AV fistula creation May 2017) Social history: , lives with family (), smoking (current everyday smoker), other (retired, previously employed at a [employer]) Family history: no significant family history Medications and Allergies Allergies Allergy/AdvReac Type Severity Reaction Status Date / Time No Known Allergies Allergy Verified 06/03/17 09:20 Home Medications Medication Instructions Recorded Confirmed Last Taken Type Furosemide [Lasix] 80 mg PO BID 01/22/17 11/04/17 11/03/17 History Aspirin [Aspirin TAB] 81 mg PO ONCE #30 tablet 04/11/17 11/04/17 11/03/17 Rx AtorvaSTATin [Lipitor] 20 mg PO QHS #30 tablet 04/11/17 11/04/17 11/03/17 Rx Labetalol [Normodyne TAB] 200 mg PO BID #60 tablet 04/11/17 11/04/17 11/03/17 Rx Potassium Chloride [Klor-Con] 20 meq PO QDAY #30 packet 04/11/17 11/04/17 Rx oxyCODONE /ACETAMINOPHEN [Percocet 1 tab PO Q6H PRN #30 tablet 04/11/1711/03/17 Rx 5/325 mg] Clopidogrel Bisulfate [Clopidogrel] 75 mg PO DAILY 06/03/17 11/04/17 11/03/17 History hydrALAZINE [Apresoline TAB] 100 mg PO DAILY 06/03/17 11/04/17 11/03/17 History Insulin Aspart [NovoLOG 100 5 unit SQ PRN PRN 06/04/17 11/04/17 1 Month Ago History UNITS/ML VIAL] ~05/10/17 Insulin Detemir [Levemir] 10 unit SQ PRN PRN 06/04/17 11/04/17 1 Month Ago History ~05/10/17 Active Meds: Active Medications Acetaminophen (Tylenol) 650 mg PO Q4H PRN PRN Reason: Pain MILD(1-3)/Fever >100.5/DAILEY Albuterol (Proventil) 2.5 mg IH Q4HRT PRN PRN Reason: Shortness Of Breath Atorvastatin Calcium (Lipitor) 20 mg PO QHS [facility] Last Admin: 11/05/17 22:03 Dose: 20 mg Bisacodyl (Dulcolax) 10 mg [place] QDAY PRN PRN Reason: Constipation unrelieved by MOM Dextrose (D50w (25gm) Syringe) 50 ml IV PRN PRN PRN Reason: Hypoglycemia Furosemide (Lasix) 60 mg IV 0600,1800 [facility] Last Admin: 11/06/17 06:28 Dose: 60 mg Hydralazine HCl (Apresoline) 100 mg PO TID [facility] Last Admin: 11/05/17 22:03 Dose: 100 mg Levofloxacin/Dextrose (Levaquin 500mg/100ml) 500 mg in 100 mls @ 100 mls/hr IV Q48H [facility] Sodium Chloride (Nacl 0.9% 1000 Ml) 1,000 mls @ 50 mls/hr IV DIRECT [facility] Last Admin: 11/06/17 09:45 Dose: 50 mls/hr Insulin Aspart (Novolog) 0 units SUB-Q ACHS [facility] PRN Reason: Protocol Last Admin: 11/05/17 23:28 Dose: Not Given Labetalol HCl (Normodyne) 200 mg PO BID [facility] Last Admin: 11/05/17 22:04 Dose: 200 mg Magnesium Hydroxide (Milk Of Magnesia) 30 ml PO Q4H PRN PRN Reason: Constipation Ondansetron HCl (Zofran) 4 mg IV Q8H PRN PRN Reason: N/V unrelieved by Reglan Oxycodone/Acetaminophen (Percocet 5/325) 1 tab PO Q6H PRN PRN Reason: Pain, Moderate (4-6) Potassium Chloride (Potassium Chloride) 20 meq PO QDAY [facility] Last Admin: 11/05/17 09:45 Dose: 20 meq Sodium Bicarbonate (Sodium Bicarbonate) 1,300 mg PO TID [facility] Last Admin: 11/05/17 22:03 Dose: 1,300 mg Zolpidem Tartrate (Ambien) 5 mg PO QHS PRN PRN Reason: Insomnia Review of Systems - Review of Systems All systems: negative (per HPI) Exam - Constitutional Vital Signs: Temp Pulse Resp BP Pulse Ox 98.8 F 80 20 157/69 98 11/06/17 09:40 11/06/17 09:40 11/06/17 09:40 11/06/17 09:40 11/06/17 09:40 General appearance: no acute distress - EENT Eyes: PERRL, EOM intact - Respiratory Respiratory effort: normal Respiratory: bilateral: CTA - Cardiovascular Rhythm: regular Heart Sounds: Present: S1 & S2 Extremities: No edema - Gastrointestinal General gastrointestinal: Present: soft, non-tender, non-distended, normal bowel sounds - Integumentary Integumentary: Present: clear - Neurologic Neurological: alert and oriented x3 - Psychiatric Psychiatric: appropriate mood/affect - Labs CBC & Chem 7: 11/06/17 05:41 11/06/17 05:41 Lab Results: Laboratory Results - last 24 hr 11/03/17 11/05/17 11/05/17 17:12 08:36 12:08 WBC RBC Hgb Hct MCV MCH MCHC RDW Plt Count Sodium Potassium Chloride Carbon Dioxide Anion Gap BUN Creatinine Estimated GFR BUN/Creatinine Ratio Glucose POC Glucose 101 109 H Calcium Total Creatine Kinase CK-MB (CK-2) CK-MB (CK-2) Rel Index Troponin T Blood Type AB POSITIVE Antibody Screen Negative Crossmatch See Detail 11/05/17 11/05/17 11/05/17 16:31 19:09 22:30 WBC RBC Hgb Hct MCV MCH MCHC RDW Plt Count Sodium Potassium Chloride Carbon Dioxide Anion Gap BUN Creatinine Estimated GFR BUN/Creatinine Ratio Glucose POC Glucose 114 H 81 Calcium Total Creatine Kinase 203 H CK-MB (CK-2) 6.1 H CK-MB (CK-2) Rel Index 3.0 Troponin T 0.133 H* Blood Type Antibody Screen Crossmatch 11/06/17 11/06/17 11/06/17 05:41 05:41 08:03 WBC 8.1 RBC 3.09 L Hgb 7.8 L Hct 23.7 L MCV 77 L MCH 25 L MCHC 33 RDW 17.6 H Plt Count 198 Sodium 145 Potassium 4.0 Chloride 111.5 H Carbon Dioxide 14 L Anion Gap 24 BUN 56 H Creatinine 4.3 H Estimated GFR 17 BUN/Creatinine Ratio 13 Glucose 81 POC Glucose 71 Calcium 7.6 L Total Creatine Kinase CK-MB (CK-2) CK-MB (CK-2) Rel Index Troponin T Blood Type Antibody Screen Crossmatch Assessment and Plan 1. Microcytic/iron deficiency anemia - pt denies overt bleeding but has had drop in hct steadily over past year. likely multifactorial from anemia of chronic disease and suspected occult gi source. will plan for egd today 2. CKD - further management per renal 3. CAD - cardiology following, denies cp/sob; plavix has been stopped has PCI was a few years ago Further recommendations following procedure.
--- NOTE | 2017-11-06 10:13 | Post Operative Note ---
Pre-op diagnosis: anemia/melena Post-op diagnosis: other (erosive gastritis, prominent ampulla) Findings: EGD with biopsies: There was multiple erosions in the gastric body and antrum. The mucosa appeared nodular and atrophic throughout the stomach and antrum. No high risk bleeding lesions seen. Biopsy from antrum was obtained. Prominent appearing ampulla of unclear significance. Otherwise the duodenum appeared normal. Biopsy was obtained from the ampulla Procedure: EGD with biopsies [place]est[place]: [facility] [place]geon: LILLIANA GARZA Estimated blood loss: minimal Pathology: list (Jar A - ampulla biopsies, Jar B - gastric/antrum biopsy) Specimen disposition: to lab Condition: stable Disposition: floor
--- NOTE | 2017-11-06 10:24 | Operative Report ---
Operative Report Operative Report: ESOPHAGOGASTRODUODENOSCOPY with Biopsies Date of procedure: 11/06/2017 Endoscopist: Kiran Mccoy Pre-op indication: MECHELLE, emelena Post-op findings: multiple gastric erosions, atrophic gastritis, prominent ampulla Anesthesia/Medications: MAC Estimated Blood Loss: minimal Complications: No immediate complications Procedure: After consent was obtained, the patent was placed in the left lateral decubitus position. The [employer] upper endoscope was inserted into the patient's mouth under direct vision, and advanced to the 2nd portion of duodenum without difficulty. The views of the mucosa were good. The patient tolerated the procedure fairly well. The patient's vital signs were monitored continuously throughout the procedure. Findings: The esophagus appeared normal. There were multiple small erosions in the gastric body (distal portion) and antrum. There was nodular appearing mucosa throughout the stomach, with atrophic gastritis appearing mucosa. Biopsy was obtained from the stomach ( extensive biopsies not done as pt recently on plavix and bleeding risks) Prominent appearing ampulla of unclear significance. Biopsy was obtained ( extensive biopsied not done as above). Moderately erythematous mucosa in the duodenal bulb, otherwise the duodenum appeared normal. Impression: 1. Erosive gastropathy. Biopsied. No high risk bleeding lesions. 2. Prominent ampulla of unknown significance. Biopsied. 3. Duodenitis Recommendations: -follow-up pathology -will need colonoscopy, possibly tomorrow if pt agreeable -liver enzymes are normal, and unclear significance prominent ampulla. will await path results, consider MRCP -avoid NSAIDs
--- NOTE | 2017-11-06 10:38 | Post Anesthesia Evaluation ---
- Post Anesthesia Evaluation Patient Participated: Yes Airway Patent: Yes Stable Respiratory Function: Yes Temp > 96.8F: Yes Pain Manageable: Yes Adequeate Hydration: Yes Anesthesia Complications: No
--- NOTE | 2017-11-06 11:57 | Progress Note ---
Assessment and Plan Assessment: Severe symptomatic anemia ? GIB Elevated troponin - ECG with NAF; pt denies chest pain; currently nonspecific in setting of severe anemia and CKD; cont to trend with CK-MB CAD s/p PCI of 1st obtuse and distal circ in 2012 ? PNA - CXR with bilateral lower lobe infiltrates; further eval/management per primary. CKD HTN HLP DM Plan: Currently stable cardiac status. ASA and plavix held in setting of severe anemia and possible GIB. PCI x 2 done in 2012 and pt with no current chest pain , EKG with NAF. S/p EGD this AM and for colonoscopy in AM. Following GI eval, would recommend resuming ASA - do not need to resume plavix as PCI was done in 2011. Will cont to hold ASA until GI w/u is complete and okay to resume ASA per GI. Pt is currently at moderate cardiovascular risk for colonoscopy. There are no immediate cardiac contraindications to proceeding with colonoscopy at this time. Consider repeat stress test as OP once medically stabilized. Volume optimization per nephrology. Assessment and plan reviewed with pt and pt's at bedside. The patient has been seen in conjunction with Dr. LOS Webb who agrees with the assessment and plan of care. Subjective Date of service: 11/06/17 Principal diagnosis: CKD 4 Interval history: pt seen s/p EGD, no current cardiac complaints. Objective Last Vital Signs Temp 98.8 F 11/06/17 09:40 Pulse 76 11/06/17 10:44 Resp 18 11/06/17 10:44 BP 118/55 11/06/17 10:44 Pulse Ox 100 11/06/17 10:44 - Physical Examination General: No Apparent Distress HEENT: Positive: PERRL, Normocephaly, Mucus Membranes Moist Neck: Positive: neck supple, trachea midline Cardiac: Positive: Reg Rate and Rhythm, S1/S2 Lungs: Positive: clear to auscultation Neuro: Positive: Grossly Intact, Cranial Nerve 2-12 Intact Abdomen: Positive: Unremarkable, Soft, Active Bowel Sounds. Negative: Tender Skin: Positive: Clear. Negative: Rash, Wound Musculoskeletal: No Fluid Collection, No Pain, Normal Range of Motion Extremities: Absent: edema - Labs and Meds Cardiac Enzymes 11/05/17 Range/Units 19:09 CK-MB (CK-2) 6.1 H (0.0-4.0) ng/mL CBC 11/06/17 Range/Units 05:41 WBC 8.1 (4.5-11.0) K/mm3 RBC 3.09 L (3.65-5.03) M/mm3 Hgb 7.8 L (11.8-15.2) gm/dl Hct 23.7 L (35.5-45.6) % Plt Count 198 (140-440) K/mm3 Comprehensive Metabolic Panel 11/06/17 Range/Units 05:41 Sodium 145 (137-145) mmol/L Potassium 4.0 (3.6-5.0) mmol/L Chloride 111.5 H (98-107) mmol/L Carbon Dioxide 14 L (22-30) mmol/L BUN 56 H (9-20) mg/dL Creatinine 4.3 H (0.8-1.5) mg/dL Glucose 81 (75-100) mg/dL Calcium 7.6 L (8.4-10.2) mg/dL - Imaging and Cardiology EKG: report reviewed, image reviewed Echo: report reviewed (01/25/2017 demonstrated EF 55-60%, biatrial mild dilation , moderate to severe LVH, RV mildly dilated, mild to moderate AR, mild MR, moderate pulmonary HTN, moderate pleural effusion, small pericardial effusion. ) - EKG Sinus rhythms and dysrhythmias: sinus rhythm
--- NOTE | 2017-11-06 14:58 | Progress Note ---
Assessment and Plan - Patient Problems (1) Metabolic acidosis Current Visit: Yes Status: Acute Plan to address problem: increased Na bicarb 1300mg po to tid. serum bicarb improving. (2) Hypertensive chronic kidney disease with stage 1 through stage 4 chronic kidney disease, or unspecified chronic kidney disease Current Visit: No Status: Acute Plan to address problem: BP improved, will switch lasix back to 80mg po bid, hydralazine was increased to 100mg po tid (3) Pulmonary edema Current Visit: Yes Status: Acute Qualifiers: Chronicity: acute Qualified Code(s): J81.0 - Acute pulmonary edema Plan to address problem: cont 80mg po bid (4) Cardiomyopathy Current Visit: Yes Status: Acute Qualifiers: Cardiomyopathy type: unspecified Qualified Code(s): I42.9 - Cardiomyopathy , unspecified Plan to address problem: cont BB, lasix, hydralazine. GASPER-I/ARB on hold due to advanced CKD (5) Diabetes mellitus, type 2 Current Visit: No Status: Chronic Qualifiers: Chronic kidney disease stage: stage 4 (severe) Plan to address problem: glucose control as per primary attending (6) Chronic kidney disease, stage IV (severe) Current Visit: Yes Status: Acute Plan to address problem: supportive care for CKD, avoid further nephrotoxins, NSAIDs IV contrast. no acute indication for renal replacement therapy at present pt will need transposition of AVF as outpatient. (7) Anemia in chronic illness Current Visit: Yes Status: Acute Plan to address problem: hb < 6.9 transfuse with 1 PRBC. given EPO [id number] sc x 1 dose . Subjective Date of service: 11/06/17 Principal diagnosis: CKD 4 Interval history: Pt awake, alert in no acute respiratory distress. Objective - Vital Signs Vital signs: Vital Signs - 12hr 11/06/17 11/06/17 11/06/17 05:52 07:56 09:30 Temperature 99.1 F 98.6 F 98.8 F Pulse Rate 82 82 80 Respiratory 18 18 20 Rate Respiratory Rate [no pain] Blood Pressure 168/76 175/76 157/69 O2 Sat by Pulse 96 97 98 Oximetry 11/06/17 11/06/17 11/06/17 09:40 10:03 10:14 Temperature 98.8 F Pulse Rate 80 79 73 Respiratory 20 19 Rate Respiratory Rate [no pain] Blood Pressure 157/69 153/60 141/56 O2 Sat by Pulse 98 100 100 Oximetry 11/06/17 11/06/17 11/06/17 10:25 10:44 11:39 Temperature 98.7 F Pulse Rate 74 76 77 Respiratory 18 18 16 Rate Respiratory Rate [no pain] Blood Pressure 134/57 118/55 160/75 O2 Sat by Pulse 100 100 98 Oximetry 11/06/17 11/06/17 12:52 12:53 Temperature Pulse Rate 80 Respiratory 20 Rate Respiratory 20 Rate [no pain] Blood Pressure O2 Sat by Pulse 98 Oximetry - General Appearance General appearance: well-developed, well-nourished, appears stated age EENT: ATNC, PERRL, mucous membranes moist Neck: no JVD Respiratory: Present: Clear to Ascultation Cardiology: regular, S1S2 Gastrointestinal: normoactive bowel sounds Integumentary: no rash, other (no edema ) Neurologic: no focal deficit, alert and oriented x3, strength 5/5, CN 3-12 intact Psychiatric: mood/affect appropriate, cooperative - Lab 11/06/17 05:41 11/06/17 05:41 Most recent lab results Calcium 7.6 mg/dL (8.4-10.2) L 11/06/17 05:41 Magnesium 1.80 mg/dL (1.7-2.3) 11/04/17 06:31
[2017-11-06] MEDS: LEVAQUIN 500MG/100ML 500 MG/100 ML BAG IV SCH (15:54)
[2017-11-06] MEDS ORDERED: DULCOLAX PO ONE (16:00)
[2017-11-06] MEDS ORDERED: GOLYTELY PO ONE (17:00)
--- NOTE | 2017-11-06 17:59 | Progress Note ---
Assessment and Plan Assessment and Plan Assessment and plan: --Acute on chronic hypoxic respiratory failure; secondary to fluid overload off Bipap -doing well --Acute renal failure; nephrology following Closely monitor renal function, avoid nephrotoxic medications --Immature AV fistula left upper extremity; vascular evaluated the patient Recommend outpatient revision of AV fistula in 1-2 weeks --Dyslipidemia; stable on lipid-lowering medication --Nonspecific elevation of troponins; patient has coronary artery disease Cardiology evaluation noting appreciated --History of melena with anemia ---Had EGD -Gastritis/Gastropathy Hemoglobin today 6.9, transfuse 1 unit of PRBC, GI consultation for further evaluation and management aspirin and Plavix were held by cardiology, Anemia partly secondary to acute renal failure --Community-acquired pneumonia; continue Levaquin renal dose, supportive care, follow cultures --Hypertension; moderate control, continue current antihypertensives and when necessary medications --DVT prophylaxis; SCDs, no pharmacological anticoagulation in view of GI bleeding Plan of care discussed with the patient and the family member at the bedside Subjective Date of service: 11/06/17 Principal diagnosis: CKD 4 Interval history: Doing better Objective - Constitutional Vitals: Vital Signs - 12hr 11/06/17 11/06/17 11/06/17 07:56 09:30 09:40 Temperature 98.6 F 98.8 F 98.8 F Pulse Rate 82 80 80 Respiratory 18 20 20 Rate Respiratory Rate [no pain] Blood Pressure 175/76 157/69 157/69 O2 Sat by Pulse 97 98 98 Oximetry 11/06/17 11/06/17 11/06/17 10:03 10:14 10:25 Temperature Pulse Rate 79 73 74 Respiratory 19 18 Rate Respiratory Rate [no pain] Blood Pressure 153/60 141/56 134/57 O2 Sat by Pulse 100 100 100 Oximetry 11/06/17 11/06/17 11/06/17 10:44 11:39 12:52 Temperature 98.7 F Pulse Rate 76 77 Respiratory 18 16 Rate Respiratory 20 Rate [no pain] Blood Pressure 118/55 160/75 O2 Sat by Pulse 100 98 Oximetry 11/06/17 12:53 Temperature Pulse Rate 80 Respiratory 20 Rate Respiratory Rate [no pain] Blood Pressure O2 Sat by Pulse 98 Oximetry General appearance: Present: no acute distress, well-nourished - EENT Eyes: PERRL, EOM intact ENT: hearing intact, clear oral mucosa Ears: bilateral: normal - Neck Neck: supple, normal ROM - Respiratory Respiratory effort: normal Respiratory: bilateral: CTA - Breasts Breasts: normal - Cardiovascular Rhythm: regular Heart Sounds: Present: S1 & S2. Absent: gallop, rub Extremities: pulses intact, No edema, normal color, Full ROM - Gastrointestinal General gastrointestinal: Present: soft, non-tender, non-distended, normal bowel sounds - Genitourinary Male genitourinary: normal - Integumentary Integumentary: clear, warm, dry - Musculoskeletal Musculoskeletal: 1, strength equal bilaterally - Neurologic Neurologic: moves all extremities - Psychiatric Psychiatric: memory intact, appropriate mood/affect, intact judgment & insight - Labs CBC & Chem 7: 11/08/17 05:09 11/08/17 05:09 Labs: Abnormal lab results 11/05/17 11/05/17 11/05/17 Range/Units 12:08 16:31 19:09 RBC (3.65-5.03) M/mm3 Hgb (11.8-15.2) gm/dl Hct (35.5-45.6) % MCV (84-94) fl MCH (28-32) pg RDW (13.2-15.2) % Chloride (98-107) mmol/L Carbon Dioxide (22-30) mmol/L BUN (9-20) mg/dL Creatinine (0.8-1.5) mg/dL POC Glucose 109 H 114 H (70-105) Calcium (8.4-10.2) mg/dL Total Creatine Kinase 203 H (55-170) units/L CK-MB (CK-2) 6.1 H (0.0-4.0) ng/mL Troponin T 0.133 H* (0.00-0.029) ng/mL 11/06/17 11/06/17 Range/Units 05:41 05:41 RBC 3.09 L (3.65-5.03) M/mm3 Hgb 7.8 L (11.8-15.2) gm/dl Hct 23.7 L (35.5-45.6) % MCV 77 L (84-94) fl MCH 25 L (28-32) pg RDW 17.6 H (13.2-15.2) % Chloride 111.5 H (98-107) mmol/L Carbon Dioxide 14 L (22-30) mmol/L BUN 56 H (9-20) mg/dL Creatinine 4.3 H (0.8-1.5) mg/dL POC Glucose (70-105) Calcium 7.6 L (8.4-10.2) mg/dL Total Creatine Kinase (55-170) units/L CK-MB (CK-2) (0.0-4.0) ng/mL Troponin T (0.00-0.029) ng/mL
[2017-11-06] MEDS: LASIX PO SCH (22:31)
[2017-11-07] MEDS: NOVOLOG SUB-Q SCH ×5 (00:18→22:15)
[2017-11-07 05:52] LABS: Basophils % (Auto) 1.2 % (0.0-1.8); Eosinophils % (Auto) 1.2 % (0.0-4.3); Hematocrit 24.3 % (35.5-45.6); Hemoglobin 8.2 gm/dl (11.8-15.2); Mean Corpuscular HGB Conc 34 % (32-34); Mean Corpuscular Volume 77 fl (84-94); Platelet Count 204 K/mm3 (140-440); Red Blood Count 3.18 M/mm3 (3.65-5.03); Red Cell Distribution Width 18.1 % (13.2-15.2); White Blood Count 7.7 K/mm3 (4.5-11.0)
[2017-11-07 05:58] LABS: Mean Corpuscular Hemoglobin 26 pg (28-32)
[2017-11-07 06:13] LABS: Albumin 2.8 g/dL (3.9-5); Bilirubin,Total 0.4 mg/dL (0.1-1.2); Calcium 7.9 mg/dL (8.4-10.2); Potassium 3.5 mmol/L (3.6-5.0); Total Protein 5.5 g/dL (6.3-8.2)
[2017-11-07] MEDS: APRESOLINE PO SCH ×3 (08:00→21:40)
[2017-11-07] MEDS: SODIUM BICARBONATE PO SCH ×3 (08:01→21:40)
[2017-11-07] MEDS: LASIX PO SCH ×2 (10:59→21:40)
[2017-11-07] MEDS: NORMODYNE PO SCH ×2 (11:00→21:41)
[2017-11-07] MEDS: POTASSIUM CHLORIDE PO SCH (11:00)
--- NOTE | 2017-11-07 11:11 | Progress Note ---
Assessment and Plan Severe symptomatic anemia ? GIB Elevated troponin - ECG with NAF; pt denies chest pain; currently nonspecific in setting of severe anemia and CKD; cont to trend with CK-MB CAD s/p PCI of 1st obtuse and distal circ in 2012 ? PNA - CXR with bilateral lower lobe infiltrates; further eval/management per primary. CKD HTN HLP DM No significant cardiac symptoms today. GI evaluation in progress. Continue current management. - Patient Problems (1) Cardiomyopathy Current Visit: Yes Status: Acute Qualifiers: Cardiomyopathy type: unspecified Qualified Code(s): I42.9 - Cardiomyopathy , unspecified (2) Chronic kidney disease, stage IV (severe) Current Visit: Yes Status: Acute (3) ESRD needing dialysis Current Visit: Yes Status: Acute (4) Elevated troponin Current Visit: Yes Status: Acute (5) HLD (hyperlipidemia) Current Visit: Yes Status: Acute Subjective Date of service: 11/07/17 Principal diagnosis: CKD 4 Interval history: Patient is comfortable. Denies chest pain or difficulty breathing or palpitations. He is scheduled to have colonoscopy. Objective Vital Signs Temp Pulse Resp Resp BP BP Pulse Ox 11/07/17 09:21 98.5 F 79 20 168/75 98 11/07/17 09:19 98.5 F 66 20 113/43 100 11/07/17 06:51 78 11/07/17 04:58 98.9 F 79 20 135/59 97 11/07/17 00:20 98.5 F 74 20 99/41 96 11/06/17 22:00 18 98 11/06/17 19:58 98.5 F 78 21 160/76 99 11/06/17 12:53 80 20 98 11/06/17 12:52 20 11/06/17 11:39 98.7 F 77 16 160/75 98 - Physical Examination General: No Apparent Distress HEENT: Positive: PERRL, Normocephaly, Mucus Membranes Moist Neck: Positive: neck supple, trachea midline Cardiac: Positive: Regular Rate Lungs: Positive: clear to auscultation Neuro: Positive: Grossly Intact, Cranial Nerve 2-12 Intact Abdomen: Positive: Unremarkable, Soft, Active Bowel Sounds. Negative: Tender Skin: Positive: Clear. Negative: Rash, Wound Musculoskeletal: No Fluid Collection, No Pain, Normal Range of Motion Extremities: Absent: edema - Labs and Meds Cardiac Enzymes 11/07/17 Range/Units 05:19 AST 14 (5-40) units/L CBC 11/07/17 Range/Units 05:19 WBC 7.7 (4.5-11.0) K/mm3 RBC 3.18 L (3.65-5.03) M/mm3 Hgb 8.2 L (11.8-15.2) gm/dl Hct 24.3 L (35.5-45.6) % Plt Count 204 (140-440) K/mm3 Lymph # 1.3 (1.2-5.4) K/mm3 [place] # 1.0 H (0.0-0.8) K/mm3 Eos # 0.1 (0.0-0.4) K/mm3 Baso # 0.1 (0.0-0.1) K/mm3 Comprehensive Metabolic Panel 11/07/17 Range/Units 05:19 Sodium 145 (137-145) mmol/L Potassium 3.5 L (3.6-5.0) mmol/L Chloride 108.0 H (98-107) mmol/L Carbon Dioxide 18 L (22-30) mmol/L BUN 50 H (9-20) mg/dL Creatinine 4.2 H (0.8-1.5) mg/dL Glucose 76 (75-100) mg/dL Calcium 7.9 L (8.4-10.2) mg/dL AST 14 (5-40) units/L ALT 11 (7-56) units/L Alkaline Phosphatase 66 (35-129) units/L Total Protein 5.5 L (6.3-8.2) g/dL Albumin 2.8 L (3.9-5) g/dL - Imaging and Cardiology EKG: report reviewed, image reviewed Echo: report reviewed (01/25/2017 demonstrated EF 55-60%, biatrial mild dilation , moderate to severe LVH, RV mildly dilated, mild to moderate AR, mild MR, moderate pulmonary HTN, moderate pleural effusion, small pericardial effusion. ) - EKG Sinus rhythms and dysrhythmias: sinus rhythm
[2017-11-07] MEDS ORDERED: NACL 0.9% 1000 ML 1,000 ML ONE (11:32)
[2017-11-07] MEDS ORDERED: WATER FOR IRRIG STERILE IR ONE (11:33)
[2017-11-07] MEDS ORDERED: NACL 0.9% 1000 ML 1,000 ML IV SCH (13:00)
--- NOTE | 2017-11-07 13:57 | Anesthesia Day of Surgery ---
Anesthesia Day of Surgery - Day of Surgery Patient Examined: Yes Patient H&P Reviewed: Yes Patient is NPO: Yes Beta Blockers: Yes Cardiac Clearance: Yes
--- NOTE | 2017-11-07 13:58 | Anesthesia Consultation ---
Anesthesia Consult and Med Hx Date of service: 11/07/17 - Airway Anesthetic Teeth Evaluation: Poor ROM Head & Neck: Adequate Mental/Hyoid Distance: Adequate Mallampati Class: Class II Intubation Access Assessment: Probably Good - Pulmonary Exam CTA: Yes - Cardiac Exam Cardiac Exam: RRR - Pre-Operative Health Status ASA Pre-Surgery Classification: ASA4 Proposed Anesthetic Plan: MAC - Pulmonary Hx Smoking: Yes Hx Asthma: Yes SOB: Yes (upon exertion ) COPD: Yes Hx Pneumonia: Yes Hx Sleep Apnea: Yes (no cpap use ) - Cardiovascular System Hx Hypertension: Yes Hx Coronary Artery Disease: Yes ([place] x3 Stents x2) Hx Heart Attack/AMI: Yes Hx Angina: No (Denies chest pain and tightness) Hx Percutaneous Transluminal Coronary Angioplasty (PTCA): Yes (2011) Hx Peripheral Vascular Disease: Yes - Central Nervous System CVA: Yes (2014) Hx Psychiatric Problems: No - Endocrine Hx Renal Disease: Yes Hx End Stage Renal Disease: Yes Hx Insulin Dependent Diabetes: Yes (99) - Hematic Hx Anemia: Yes (Hgb 7.8) Hx Sickle Cell Disease: No - Other Systems Hx Cancer: No - Additional Comments Anesthesia Medical History Comments: Pt has been evaluated by cardiology this admission. Lexiscan 03/02 was negative for ischemia. ECHO 01/31 showed EF 55-60%, LVH, Mod AR and pul htn. Cxr shows LL infiltrates.
[2017-11-07] MEDS ORDERED: AMIDATE IV ONE (14:01)
--- NOTE | 2017-11-07 14:23 | Post Operative Note ---
Pre-op diagnosis: iron deficiency anemia Post-op diagnosis: other (colon polyp removed, internal hemorrhoids, poor prep) Findings: Colonoscopy with polypectomy: Poor prep however no obvious mass, bleeding, or source of anemia identified. Descending colon polyp (~ 8mm, pedunculated) removed with hot snare Internal hemorrhoids Procedure: Colonoscopy with snare polypectomy Anesthesia: MAC Surgeon: LILLIANA GARZA Estimated blood loss: minimal Pathology: list (Descending colon polyp) Specimen disposition: to lab Condition: stable Disposition: floor
--- NOTE | 2017-11-07 14:30 | Operative Report ---
Operative Report Operative Report: Colonoscopy with polypectomy Date of procedure: 11/07/2017 Endoscopist: Kiran Mccoy Pre-op indication: iron deficiency anemia Post-op findings: poor prep, one polyp removed, internal hemorrhoids Anesthesia/Medications: MAC Estimated Blood Loss: minimal Complications: No immediate complications Procedure: After consent was obtained, the patent was placed in the left lateral decubitus position. The fujinon colonoscope was inserted into the patient's rectum under direct vision, and advanced to the cecum without difficulty. The patient tolerated the procedure well. The views of the mucosa were fair to poor, quality of prep was poor to identify small lesions/polyps. Findings: There was an ~ 8 mm semi-pedunculated polyp in the descending colon. The polyp was removed with hot snare polypectomy and retrieved. Internal hemorrhoids were seen on retroflexion view. Otherwise, no obvious source of patient's anemia identified, although unable to rule out small lesions/polyps due to prep. Impression: 1. Colon polyp removed as above 2. Internal hemorrhoids 3. No obvious mass or source of anemia identified within limitations of prep Recommendations: -follow-up pathology -okay to restart diet -repeat colonoscopy as outpatient for screening purposes within 3 months -anemia likely multifactorial from iron deficiency (start po iron) and anemia of chronic disease Will sign off, please call as needed or with questions. Patient should follow- up in GI clinic in 3-4 weeks after discharge.
--- NOTE | 2017-11-07 14:39 | Progress Note ---
Assessment and Plan Assessment and Plan Assessment and plan: --Acute on chronic hypoxic respiratory failure; secondary to fluid overload Continue oxygen, titrate O2 sats to 90%, BiPAP as needed --Acute renal failure; nephrology following Closely monitor renal function, avoid nephrotoxic medications --Immature AV fistula left upper extremity; vascular evaluated the patient Recommend outpatient revision of AV fistula in 1-2 weeks --Dyslipidemia; stable on lipid-lowering medication --Nonspecific elevation of troponins; patient has coronary artery disease Cardiology evaluation noting appreciated --History of melena with anemia Hemoglobin today 6.9, transfuse 1 unit of PRBC, GI consultation for further evaluation and management aspirin and Plavix were held by cardiology, Anemia partly secondary to acute renal failure Had EGD and Colonoscopy Colon polyp removed Internal hemorrhoids No obvious mass or source of anemia identified within limitations of prep --Community-acquired pneumonia; continue Levaquin renal dose, supportive care, follow cultures --Hypertension; moderate control, continue current antihypertensives and when necessary medications --DVT prophylaxis; SCDs, no pharmacological anticoagulation in view of GI bleeding Plan of care discussed with the patient and the family member at the bedside Subjective Date of service: 11/07/17 Principal diagnosis: CKD 4 Interval history: Doing better Objective - Constitutional Vitals: Vital Signs - 12hr 11/07/17 11/07/17 11/07/17 04:58 06:51 09:19 Temperature 98.9 F 98.5 F Pulse Rate 79 78 66 Respiratory 20 20 Rate Blood Pressure 135/59 Blood Pressure 113/43 [Right] O2 Sat by Pulse 97 100 Oximetry 11/07/17 11/07/17 11/07/17 09:21 13:03 14:21 Temperature 98.5 F 99.0 F 98.2 F Pulse Rate 79 86 74 Respiratory 20 20 17 Rate Blood Pressure 174/74 Blood Pressure 168/75 168/78 [Right] O2 Sat by Pulse 98 98 100 Oximetry General appearance: Present: no acute distress, well-nourished - EENT Eyes: PERRL, EOM intact ENT: hearing intact, clear oral mucosa Ears: bilateral: normal - Neck Neck: supple, normal ROM - Respiratory Respiratory effort: normal Respiratory: bilateral: CTA - Breasts Breasts: normal - Cardiovascular Rhythm: regular Heart Sounds: Present: S1 & S2. Absent: gallop, rub Extremities: pulses intact, No edema, normal color, Full ROM - Gastrointestinal General gastrointestinal: Present: soft, non-tender, non-distended, normal bowel sounds - Genitourinary Male genitourinary: normal - Integumentary Integumentary: clear, warm, dry - Musculoskeletal Musculoskeletal: 1, strength equal bilaterally - Neurologic Neurologic: moves all extremities - Psychiatric Psychiatric: memory intact, appropriate mood/affect, intact judgment & insight - Labs CBC & Chem 7: 11/08/17 05:09 11/08/17 05:09 Labs: Abnormal lab results 11/07/17 11/07/17 Range/Units 05:19 05:19 RBC 3.18 L (3.65-5.03) M/mm3 Hgb 8.2 L (11.8-15.2) gm/dl Hct 24.3 L (35.5-45.6) % MCV 77 L (84-94) fl MCH 26 L (28-32) pg RDW 18.1 H (13.2-15.2) % [place] % (Auto) 13.6 H (0.0-7.3) % [place] # 1.0 H (0.0-0.8) K/mm3 Potassium 3.5 L (3.6-5.0) mmol/L Chloride 108.0 H (98-107) mmol/L Carbon Dioxide 18 L (22-30) mmol/L BUN 50 H (9-20) mg/dL Creatinine 4.2 H (0.8-1.5) mg/dL Calcium 7.9 L (8.4-10.2) mg/dL Total Protein 5.5 L (6.3-8.2) g/dL Albumin 2.8 L (3.9-5) g/dL
--- NOTE | 2017-11-07 15:11 | Progress Note ---
Assessment and Plan - Patient Problems (1) Metabolic acidosis Current Visit: Yes Status: Acute Plan to address problem: serum bicarb improving, cont Na bicarb 1300mg po to tid. (2) Hypertensive chronic kidney disease with stage 1 through stage 4 chronic kidney disease, or unspecified chronic kidney disease Current Visit: No Status: Acute Plan to address problem: BP improved, cont lasix back to 80mg po bid, hydralazine was increased to 100mg po tid (3) Pulmonary edema Current Visit: Yes Status: Acute Qualifiers: Chronicity: acute Qualified Code(s): J81.0 - Acute pulmonary edema Plan to address problem: improved on Lasix, cont 80mg po bid (4) Cardiomyopathy Current Visit: Yes Status: Acute Qualifiers: Cardiomyopathy type: unspecified Qualified Code(s): I42.9 - Cardiomyopathy , unspecified Plan to address problem: cont BB, lasix, hydralazine. GASPER-I/ARB on hold due to advanced CKD (5) Diabetes mellitus, type 2 Current Visit: No Status: Chronic Qualifiers: Chronic kidney disease stage: stage 4 (severe) Plan to address problem: glucose control as per primary attending (6) Chronic kidney disease, stage IV (severe) Current Visit: Yes Status: Acute Plan to address problem: supportive care for CKD, avoid further nephrotoxins, NSAIDs IV contrast. no acute indication for renal replacement therapy at present pt will need transposition of AVF as outpatient. stable for discharge from renal stand point. (7) Anemia in chronic illness Current Visit: Yes Status: Acute Plan to address problem: hb < 6.9 transfuse with 1 PRBC. given EPO [id number] sc x 1 dose. EGD, colonoscopy without active bleeding. as per GI most likely anemia of chronic illness, will need hematology f/u as outpatient for IV iron/BUBBA treatment. Subjective Date of service: 11/07/17 Principal diagnosis: CKD 4 Interval history: Pt awake, alert in no acute respiratory distress. s/p colonoscopy today Objective - Vital Signs Vital signs: Vital Signs - 12hr 11/07/17 11/07/17 11/07/17 04:58 06:51 09:19 Temperature 98.9 F 98.5 F Pulse Rate 79 78 66 Respiratory 20 20 Rate Blood Pressure 135/59 Blood Pressure 113/43 [Right] O2 Sat by Pulse 97 100 Oximetry 11/07/17 11/07/17 11/07/17 09:21 13:03 14:21 Temperature 98.5 F 99.0 F 98.2 F Pulse Rate 79 86 74 Respiratory 20 20 17 Rate Blood Pressure 174/74 Blood Pressure 168/75 168/78 [Right] O2 Sat by Pulse 98 98 100 Oximetry 11/07/17 14:36 Temperature Pulse Rate 74 Respiratory 18 Rate Blood Pressure 163/69 Blood Pressure [Right] O2 Sat by Pulse 96 Oximetry - General Appearance General appearance: well-nourished, appears stated age EENT: ATNC, PERRL, mucous membranes moist Neck: no JVD Respiratory: Present: Decreased Breath Sounds Cardiology: regular, S1S2 Gastrointestinal: normoactive bowel sounds Integumentary: no rash, other (trace edema ) Neurologic: no focal deficit, alert and oriented x3, strength 5/5, CN 3-12 intact Psychiatric: mood/affect appropriate, cooperative - Lab 11/07/17 05:19 11/07/17 05:19 Most recent lab results Calcium 7.9 mg/dL (8.4-10.2) L 11/07/17 05:19 Magnesium 1.80 mg/dL (1.7-2.3) 11/04/17 06:31
[2017-11-07] MEDS ORDERED: K-DUR PO ONE (16:14)
--- NOTE | 2017-11-07 16:17 | Post Anesthesia Evaluation ---
- Post Anesthesia Evaluation Patient Participated: Yes Airway Patent: Yes Stable Respiratory Function: Yes Nausea/Vomiting: No Temp > 96.8F: Yes Pain Manageable: Yes Adequeate Hydration: Yes Anesthesia Complications: No Block Receding Appropriately: Not Applicable Patient on Ventilator: No
[2017-11-08 06:00] LABS: Basophils % (Auto) 1.1 % (0.0-1.8); Eosinophils % (Auto) 1.9 % (0.0-4.3); Hematocrit 26.3 % (35.5-45.6); Hemoglobin 8.8 gm/dl (11.8-15.2); Mean Corpuscular HGB Conc 34 % (32-34); Mean Corpuscular Volume 76 fl (84-94); Platelet Count 210 K/mm3 (140-440); Red Blood Count 3.45 M/mm3 (3.65-5.03); Red Cell Distribution Width 17.8 % (13.2-15.2); White Blood Count 7.9 K/mm3 (4.5-11.0)
[2017-11-08 06:03] LABS: Mean Corpuscular Hemoglobin 26 pg (28-32)
[2017-11-08 06:26] LABS: Albumin 2.8 g/dL (3.9-5); Albumin/Globulin Ratio 1.1 %; Bilirubin,Total 0.4 mg/dL (0.1-1.2); Calcium 7.8 mg/dL (8.4-10.2); Chloride 108.3 mmol/L (98-107); Potassium 3.6 mmol/L (3.6-5.0); Total Protein 5.4 g/dL (6.3-8.2)
[2017-11-08] MEDS: POTASSIUM CHLORIDE PO SCH (09:28)
[2017-11-08] MEDS: LASIX PO SCH (09:28)
[2017-11-08] MEDS: SODIUM BICARBONATE PO SCH ×2 (09:28→15:13)
[2017-11-08] MEDS: APRESOLINE PO SCH ×2 (09:29→15:13)
[2017-11-08] MEDS: NORMODYNE PO SCH (09:29)
[2017-11-08] MEDS: NOVOLOG SUB-Q SCH ×2 (09:30→12:15)
[2017-11-08] MEDS: LEVAQUIN 500MG/100ML 500 MG/100 ML BAG IV SCH (09:30)
--- NOTE | 2017-11-08 10:54 | Progress Note ---
Assessment and Plan Severe symptomatic anemia nstemi type 2 CAD s/p PCI of 1st obtuse and distal circ in 2011 ? PNA - CXR with bilateral lower lobe infiltrates; further eval/management per primary. acute on chronic renal failure. HTN HLP DM rec: pt has normal lv function, moderate to severe lvh, stress in 2016 no significant ishcemia noted, treat medically for bp and renal failure , discuss with pt and about cardiac status Subjective Date of service: 11/08/17 Principal diagnosis: CKD 4 Interval history: Patient laying in bed no chest pain or shortness of breath Objective Vital Signs Temp Pulse Resp BP BP Pulse Ox 11/08/17 09:29 78 156/77 11/08/17 07:51 97.8 F 78 18 156/77 99 11/08/17 05:41 98.4 F 76 20 146/63 97 11/08/17 00:29 99.1 F 79 20 139/65 98 11/07/17 22:00 98 11/07/17 20:00 79 11/07/17 19:54 99.0 F 81 18 154/73 96 11/07/17 17:26 98.4 F 79 20 174/79 98 11/07/17 16:52 98.4 F 79 20 174/79 98 11/07/17 16:15 82 20 11/07/17 14:36 74 18 163/69 96 11/07/17 14:21 98.2 F 74 17 174/74 100 11/07/17 13:03 99.0 F 86 20 168/78 98 11/07/17 12:45 98.9 F 79 14 97 11/07/17 12:15 99.0 F 84 20 168/78 97 - Physical Examination General: No Apparent Distress HEENT: Positive: PERRL, Normocephaly, Mucus Membranes Moist Neck: Positive: neck supple, trachea midline Cardiac: Positive: Reg Rate and Rhythm Lungs: Positive: clear to auscultation Neuro: Positive: Grossly Intact, Cranial Nerve 2-12 Intact Abdomen: Positive: Unremarkable, Soft, Active Bowel Sounds. Negative: Tender Skin: Positive: Clear. Negative: Rash, Wound Musculoskeletal: No Fluid Collection, No Pain, Normal Range of Motion Extremities: Absent: edema - Labs and Meds Cardiac Enzymes 11/08/17 Range/Units 05:09 AST 14 (5-40) units/L CBC 11/08/17 Range/Units 05:09 WBC 7.9 (4.5-11.0) K/mm3 RBC 3.45 L (3.65-5.03) M/mm3 Hgb 8.8 L (11.8-15.2) gm/dl Hct 26.3 L (35.5-45.6) % Plt Count 210 (140-440) K/mm3 Lymph # 1.2 (1.2-5.4) K/mm3 [place] # 0.9 H (0.0-0.8) K/mm3 Eos # 0.1 (0.0-0.4) K/mm3 Baso # 0.1 (0.0-0.1) K/mm3 Comprehensive Metabolic Panel 11/08/17 Range/Units 05:09 Sodium 143 (137-145) mmol/L Potassium 3.6 (3.6-5.0) mmol/L Chloride 108.3 H (98-107) mmol/L Carbon Dioxide 19 L (22-30) mmol/L BUN 46 H (9-20) mg/dL Creatinine 4.2 H (0.8-1.5) mg/dL Glucose 81 (75-100) mg/dL Calcium 7.8 L (8.4-10.2) mg/dL AST 14 (5-40) units/L ALT 10 (7-56) units/L Alkaline Phosphatase 65 (35-129) units/L Total Protein 5.4 L (6.3-8.2) g/dL Albumin 2.8 L (3.9-5) g/dL - Imaging and Cardiology EKG: report reviewed, image reviewed Echo: report reviewed (01/25/2017 demonstrated EF 55-60%, biatrial mild dilation , moderate to severe LVH, RV mildly dilated, mild to moderate AR, mild MR, moderate pulmonary HTN, moderate pleural effusion, small pericardial effusion. ) - Telemetry EKG Rhythm: Sinus Rhythm - EKG Sinus rhythms and dysrhythmias: sinus rhythm
[2017-11-08 11:39] VITALS: BP 147/69
[2017-11-08] MEDS ORDERED: PROCARDIA XL PO SCH (13:00)
--- NOTE | 2017-11-08 13:04 | Progress Note ---
Assessment and Plan (1) Metabolic acidosis Current Visit: Yes Status: Acute Plan to address problem: serum bicarb improving, continue Na bicarb 1300mg po to tid. (2) Hypertensive chronic kidney disease with stage 1 through stage 4 chronic kidney disease, or unspecified chronic kidney disease Current Visit: No Status: Acute Plan to address problem: BP remains high. Added Nifedipine XL 30 mg daily for better BP control (3) Pulmonary edema Current Visit: Yes Status: Acute Qualifiers: Chronicity: acute Qualified Code(s): J81.0 - Acute pulmonary edema Plan to address problem: improved on Lasix, continue 80mg po bid (4) Diabetes mellitus, type 2 Current Visit: No Status: Chronic Qualifiers: Chronic kidney disease stage: stage 4 (severe) Plan to address problem: glucose control as per primary attending (5) Chronic kidney disease, stage IV (severe) Current Visit: Yes Status: Acute Plan to address problem: CR remains stable. supportive care for CKD, avoid further nephrotoxins, NSAIDs IV contrast. No acute indication for renal replacement therapy at present Pt will need transposition of AVF as outpatient. Stable for discharge from renal stand point. He will follow up with us and vascular in 1 week. (6) Anemia in chronic illness Current Visit: Yes Status: Acute Plan to address problem: Last Hgb at 8.8. Continue BUBBA as out patient Subjective Date of service: 11/08/17 Principal diagnosis: CKD 4 Interval history: Chart reviewed. Pt with no compliant. No SOB/CP Objective - Exam Narrative Exam: General appearance: well-nourished, appears stated age EENT: ATNC, PERRL, mucous membranes moist Neck: no JVD, supple neck Respiratory: Present: Decreased Breath Sounds Cardiology: regular, S1S2, no m, g, rubs Gastrointestinal: normoactive bowel sounds Integumentary: no rash, other (trace edema ) Neurologic: no focal deficit, alert and oriented x3, strength 5/5, CN 3-12 intact Psychiatric: mood/affect appropriate, cooperative AVF LUE + thrill but deep - Vital Signs Vital signs: Vital Signs - 12hr 11/08/17 11/08/17 11/08/17 05:41 07:51 09:29 Temperature 98.4 F 97.8 F Pulse Rate 76 78 78 Respiratory 20 18 Rate Blood Pressure 146/63 156/77 156/77 O2 Sat by Pulse 97 99 Oximetry 11/08/17 11:25 Temperature 98.7 F Pulse Rate 76 Respiratory 16 Rate Blood Pressure 147/69 O2 Sat by Pulse 99 Oximetry - Lab 11/08/17 05:09 11/08/17 05:09 Most recent lab results Calcium 7.8 mg/dL (8.4-10.2) L 11/08/17 05:09 Magnesium 1.80 mg/dL (1.7-2.3) 11/04/17 06:31
--- NOTE | 2017-11-08 15:42 | Discharge Summary ---
Providers - Providers Date of Admission: 11/04/17 08:54 Date of discharge: 11/08/17 Attending physician: ZAHRAA PORTILLO 11/04/17 08:09 Consult to Physician [CONS] Urgent Consulting Provider: GEGE SHANKS Reason For Exam: ESRD and Cardiomyopathy Acidosis needs dialysis Notified:: yes 11/04/17 15:40 Consult to Physician [CONS] Routine Consulting Provider: ADALBERTO MERLOS Reason For Exam: elevated CE/CAD s/p PCI Place consult to:: [facility] Notified:: office Was contact made?: Yes If yes, spoke with:: fam Time called:: 16:22 11/05/17 06:00 Consult to Physician [CONS] Routine Consulting Provider: CARRI CABA Reason For Exam: AVF eval/ not maturing Place consult to:: [facility] Notified:: vianey Phone number called:: [phone] Was contact made?: Yes If yes, spoke with:: vianey Time called:: 09:04 11/05/17 14:53 Consult to Physician [CONS] Routine Consulting Provider: LILLIANA MCCOY Reason For Exam: Black tarry stool/anemia Place consult to:: [facility] Notified:: Service Phone number called:: [phone] Was contact made?: Yes If yes, spoke with:: Summer Time called:: 19:39 Primary care physician: [employer] Hospitalization Condition: Stable Hospital course: Assessment and Plan Assessment and plan: --Acute on chronic hypoxic respiratory failure; secondary to fluid overload Continue oxygen, titrate O2 sats to 90%, BiPAP as needed Improved --Acute renal failure/CKD nephrology following Closely monitor renal function, avoid nephrotoxic medications Creatinine remains stable. supportive care for CKD, avoid further nephrotoxins , NSAIDs IV contrast. No acute indication for renal replacement therapy at present Pt will need transposition of AVF as outpatient. Stable for discharge from renal stand point. He will follow up with [facility] and vascular in 1 week. --Immature AV fistula left upper extremity; vascular evaluated the patient Recommend outpatient revision of AV fistula in 1-2 weeks --Dyslipidemia; stable on lipid-lowering medication --Nonspecific elevation of troponins; patient has coronary artery disease Cardiology evaluation noting appreciated --History of melena with anemia Hemoglobin today 6.9, transfuse 1 unit of PRBC, GI consultation for further evaluation and management aspirin and Plavix were held by cardiology, Anemia partly secondary to acute renal failure Had EGD and Colonoscopy Colon polyp removed Internal hemorrhoids No obvious mass or source of anemia identified within limitations of prep --Community-acquired pneumonia; continue Levaquin renal dose, supportive care, follow cultures --Hypertension; moderate control, continue current antihypertensives and when necessary medications --DVT prophylaxis; SCDs, no pharmacological anticoagulation in view of GI bleeding Plan of care discussed with the patient and the family member at the bedside Disposition: DC- TO HOME OR SELFCARE Time spent for discharge: 33 min Core Measure Documentation - Palliative Care Palliative Care/ Comfort Measures: Not Applicable - Core Measures Any of the following diagnoses?: none Exam - Constitutional Vitals: Temp Pulse Resp BP Pulse Ox 98.7 F 76 16 147/69 99 11/08/17 11:25 11/08/17 11:25 11/08/17 11:25 11/08/17 11:25 11/08/17 11:25 General appearance: Present: no acute distress, well-nourished - EENT Eyes: Present: PERRL ENT: hearing intact, clear oral mucosa - Neck Neck: Present: supple, normal ROM - Respiratory Respiratory effort: normal Respiratory: bilateral: CTA - Cardiovascular Heart rate: 70 Rhythm: regular Heart Sounds: Present: S1 & S2. Absent: rub, click - Extremities Extremities: no ischemia, pulses intact, pulses symmetrical, No edema Peripheral Pulses: within normal limits - Abdominal General gastrointestinal: Present: soft, non-tender, non-distended, normal bowel sounds Male genitourinary: Present: normal - Integumentary Integumentary: Present: clear, warm, dry - Musculoskeletal Musculoskeletal: gait normal, strength equal bilaterally - Psychiatric Psychiatric: appropriate mood/affect, intact judgment & insight - Neurologic Neurologic: CNII-XII intact, moves all extremities Plan Activity: no restrictions Diet: renal Follow up with: PRIMARY CAREMD [Primary Care Provider] - 3-5 Days
[2017-11-10] MEDS ORDERED: LEVAQUIN PO SCH (10:00)
== END 2017-11-08 18:00 | disposition home or self-care (01) | DRG 682 ==
LOC: ED 16:51 → 4A 11-04 08:54
PROVIDERS: ADMIT Internal Medicine; ATTEND Internal Medicine
PROC: 30233N1 Transfusion of Nonautologous Red Blood Cells into Peripheral Vein, Percutaneous Approach (ICD-10-PCS; principal; 2017-11-05)
PROC: 0DB68ZX Excision of Stomach, Via Natural or Artificial Opening Endoscopic, Diagnostic (ICD-10-PCS; 2017-11-06)
PROC: 0DBE8ZZ Excision of Large Intestine, Via Natural or Artificial Opening Endoscopic (ICD-10-PCS; 2017-11-07)
DX: N17.9 Acute kidney failure, unspecified (principal); J96.21 Acute and chronic respiratory failure with hypoxia; J81.0 Acute pulmonary edema; J18.9 Pneumonia, unspecified organism; E87.2 Acidosis; I13.0 Hypertensive heart and chronic kidney disease with heart failure and stage 1 through stage 4 chronic kidney disease, or unspecified chronic kidney disease; I42.9 Cardiomyopathy, unspecified; K92.1 Melena; N18.4 Chronic kidney disease, stage 4 (severe); K25.9 Gastric ulcer, unspecified as acute or chronic, without hemorrhage or perforation; K29.40 Chronic atrophic gastritis without bleeding; E78.5 Hyperlipidemia, unspecified; E11.22 Type 2 diabetes mellitus with diabetic chronic kidney disease; G43.909 Migraine, unspecified, not intractable, without status migrainosus; F17.200 Nicotine dependence, unspecified, uncomplicated; I27.20 Pulmonary hypertension, unspecified; D63.8 Anemia in other chronic diseases classified elsewhere; K64.8 Other hemorrhoids; I25.2 Old myocardial infarction; Z95.5 Presence of coronary angioplasty implant and graft; Z79.82 Long term (current) use of aspirin; Z79.899 Other long term (current) drug therapy; Z79.4 Long term (current) use of insulin; Z88.5 Allergy status to narcotic agent; Z71.6 Tobacco abuse counseling
CPT/HCPCS: 36415; 71010; 80048; 80053; 80061; 80307; 81001; 82140; 82270; 82550; 82553; 82728; 82805; 82962; 83036; 83550; 83690; 83735; 83880; 84484; 85025; 85027; 85610; 85730; 86850; 86900; 86901; 86920; 87040; 88305; 88342; 93005; 93010; 96374; 96375; 99406; A9270-GY; J1644; J1940; J1956; J2405; J7030; J7040; P9016

== ENCOUNTER 2017-11-26 21:12 | Inpatient (IN) | payer MEDICARE ==
[2017-11-26 23:42] LABS: Basophils # (Auto) 0.1 K/mm3 (0.0-0.1); Basophils % (Auto) 1.3 % (0.0-1.8); Eosinophils # (Auto) 0.1 K/mm3 (0.0-0.4); Eosinophils % (Auto) 1.8 % (0.0-4.3); Hematocrit 24.3 % (35.5-45.6); Hemoglobin 8.1 gm/dl (11.8-15.2); Lymphocytes # (Auto) 1.2 K/mm3 (1.2-5.4); Lymphocytes % (Auto) 15.6 % (13.4-35.0); Mean Corpuscular HGB Conc 33 % (32-34); Mean Corpuscular Volume 75 fl (84-94); Monocytes # (Auto) 0.7 K/mm3 (0.0-0.8); Monocytes % (Auto) 8.9 % (0.0-7.3); Platelet Count 175 K/mm3 (140-440); Red Blood Count 3.24 M/mm3 (3.65-5.03); Red Cell Distribution Width 18.4 % (13.2-15.2)
[2017-11-26 23:50] LABS: Mean Corpuscular Hemoglobin 25 pg (28-32)
[2017-11-26 23:52] LABS: Calcium 7.9 mg/dL (8.4-10.2)
--- NOTE | 2017-11-27 00:25 | XRay Report ---
FINAL REPORT PROCEDURE: PA and lateral chest x-ray TECHNIQUE: PA and lateral chest radiographs were obtained. CPT 65269 HISTORY: Shortness of breath COMPARISON: Prior chest x-ray 10/1917 FINDINGS: Small bilateral pleural effusions are now visualized. There is improved aeration in the lung bases although small amount of patchy alveolar density remains. Heart size and pulmonary vasculature appear normal. IMPRESSION: Interval development small bilateral pleural effusions. Patchy alveolar densities present in both bases although less dense than on the prior study. The appearance suggest residual versus recurrent infiltrates or atelectasis...
[2017-11-27] MEDS ORDERED: LASIX IV ONE (04:15)
[2017-11-27] MEDS ORDERED: NITRO-BID 2% TP ONE (04:22)
--- NOTE | 2017-11-27 04:23 | Emergency Department Report ---
ED Shortness of Breath HPI - General Chief Complaint: Dyspnea/Respdistress Stated Complaint: SOB Time Seen by Provider: 11/27/17 04:07 Source: patient, old records reviewed Mode of arrival: Ambulatory Limitations: No Limitations - History of Present Illness Initial Comments: 67-year-old male with a past medical history of asthma, CHF, COPD, diabetes, NH , hypertension, and renal insufficiency presents for complaints of shortness of breath 3-4 days. Positive associated swelling to bilateral hands and lower extremities. Positive cough productive sputum. has been giving albuterol inhaler treatments without improvement. Patient used to be on Lasix but it was discontinued after his last admission in October. Patient also has progressively worsening renal function and has had vascular access placed into his left arm. No complaints of fever or chest pain. Patient is in acute respiratory distress when I enter the room, diaphoretic, hypoxic in the low 80s on nasal cannula. Patient is not currently on dialysis Patient does not take home oxygen medical record review: Echocardiogram from 01/25/2017 EF 55-50%, abnormal left ventricular diastolic function. Moderate pulmonary hypertension. - Related Data Home Medications Medication Instructions Recorded Confirmed Last Taken Furosemide [Lasix] 80 mg PO BID 01/22/17 11/04/17 11/03/17 Clopidogrel Bisulfate [Clopidogrel] 75 mg PO DAILY 06/03/17 11/04/17 11/03/17 Previous Rx's Medication Instructions Recorded Last Taken Type Aspirin [Aspirin TAB] 81 mg PO ONCE #30 tablet 04/11/17 11/03/17 Rx ALBUTEROL NEB's [Proventil 0.083% 2.5 mg IH Q4HRT PRN #50 nebu 11/08/17 Unknown Rx NEBS] AtorvaSTATin [Lipitor] 20 mg PO QHS #30 tablet 11/08/17 Unknown Rx Insulin Aspart [NovoLOG 100 5 unit SQ PRN PRN #1 pen 11/08/17 Unknown Rx UNITS/ML VIAL] Insulin Detemir [Levemir] 10 unit SQ PRN PRN #5 pen 11/08/17 Unknown Rx Labetalol [Normodyne TAB] 200 mg PO BID #60 tablet 11/08/17 Unknown Rx Levofloxacin [Levaquin TAB] 500 mg PO Q48HR #5 tablet 11/08/17 Unknown Rx NIFEdipine XL [Procardia Xl] 30 mg PO QDAY #30 tablet 11/08/17 Unknown Rx Potassium Chloride 20 meq PO QDAY #30 packet 11/08/17 Unknown Rx Sodium Bicarbonate 1,300 mg PO TID #90 tablet 11/08/17 Unknown Rx Zolpidem [Ambien] 5 mg PO QHS PRN #15 tablet 11/08/17 Unknown Rx hydrALAZINE [Apresoline TAB] 100 mg PO TID #90 tab 11/08/17 Unknown Rx oxyCODONE /ACETAMINOPHEN [Percocet 1 tab PO Q6H PRN #30 tablet 11/08/17 Unknown Rx 5/325 mg] Allergies Allergy/AdvReac Type Severity Reaction Status Date / Time No Known Allergies Allergy Verified 06/03/17 09:20 ED Review of Systems ROS: Stated complaint: SOB Other details as noted in HPI Comment: All other systems reviewed and negative Other: Constitutional: No fevers chills Eyes: No eye pain visual changes ENT: No ear pain or throat pain Neck: Denies pain Respiratory: as per hpi Cardiovascular: Denies palpitations, syncope GI: Denies abdominal pain, nausea, vomiting, diarrhea : Denies dysuria Musculoskeletal: Denies back pain Skin: Denies rash, lesions, erythema Neurologic: Denies headache, numbness, weakness Psychiatric: Denies suicidal ideation, hallucinations ED Past Medical Hx - Past Medical History Previous Medical History?: Yes Hx Hypertension: Yes Hx Heart Attack/AMI: Yes (last NH, ?2014 OR 2015) Hx Congestive Heart Failure: Yes Hx Diabetes: Yes Hx Renal Disease: Yes Hx Sickle Cell Disease: No Hx Arthritis: No Hx Headaches / Migraines: Yes Hx Asthma: Yes Hx COPD: Yes Hx Tuberculosis: Yes Hx HIV: No - Surgical History Past Surgical History?: Yes Hx Coronary Stent: Yes Additional Surgical History: tonsillectomy - Social History Smoking Status: Light Tobacco Smoker Substance Use Type: None - Medications Home Medications: Home Medications Medication Instructions Recorded Confirmed Last Taken Type Furosemide [Lasix] 80 mg PO BID 01/22/17 11/04/17 11/03/17 History Aspirin [Aspirin TAB] 81 mg PO ONCE #30 tablet 04/11/17 11/04/17 11/03/17 Rx Clopidogrel Bisulfate [Clopidogrel] 75 mg PO DAILY 06/03/17 11/04/17 11/03/17 History ALBUTEROL NEB's [Proventil 0.083% 2.5 mg IH Q4HRT PRN #50 nebu 11/08/17 Unknown Rx NEBS] AtorvaSTATin [Lipitor] 20 mg PO QHS #30 tablet 11/08/17 Unknown Rx Insulin Aspart [NovoLOG 100 5 unit SQ PRN PRN #1 pen 11/08/17 Unknown Rx UNITS/ML VIAL] Insulin Detemir [Levemir] 10 unit SQ PRN PRN #5 pen 11/08/17 Unknown Rx Labetalol [Normodyne TAB] 200 mg PO BID #60 tablet 11/08/17 Unknown Rx Levofloxacin [Levaquin TAB] 500 mg PO Q48HR #5 tablet 11/08/17 Unknown Rx NIFEdipine XL [Procardia Xl] 30 mg PO QDAY #30 tablet 11/08/17 Unknown Rx Potassium Chloride 20 meq PO QDAY #30 packet 11/08/17 Unknown Rx Sodium Bicarbonate 1,300 mg PO TID #90 tablet 11/08/17 Unknown Rx Zolpidem [Ambien] 5 mg PO QHS PRN #15 tablet 11/08/17 Unknown Rx hydrALAZINE [Apresoline TAB] 100 mg PO TID #90 tab 11/08/17 Unknown Rx oxyCODONE /ACETAMINOPHEN [Percocet 1 tab PO Q6H PRN #30 tablet 11/08/17 Unknown Rx 5/325 mg] ED Physical Exam - General Limitations: No Limitations - Other Other exam information: General: Acute distress Head exam: Atraumatic, normocephalic Eyes exam: Normal appearance, ENT: Moist mucous membrane, normal oropharynx Neck exam: Normal inspection, full range of motion Respiratory exam: Tachypnea, accessory muscle use, positive respiratory distress , positive crackles bilateral bases Cardiovascular: Tachycardia Abdomen: Soft, nondistended, and nontender, with normal bowel sounds, no rebound, or guarding Extremity: Full range of motion, leg edema Back: Normal Inspection, full range of motion, no tenderness Neurologic: Alert, oriented x3, cranial nerves intact, no motor or sensory deficit Psychiatric: normal affect, normal mood Skin: Diaphoretic ED Course Vital Signs 11/26/17 11/27/17 11/27/17 22:35 03:03 04:32 Temperature 98 F 97.8 F Pulse Rate 82 94 H 89 Respiratory 14 18 Rate Blood Pressure 139/70 173/95 Blood Pressure 116/83 [Left] O2 Sat by Pulse 100 100 Oximetry ED Medical Decision Making - Lab Data Result diagrams: 11/26/17 23:10 11/26/17 23:10 Lab Results 11/26/17 11/26/17 Range/Units 23:10 23:10 WBC 7.8 (4.5-11.0) K/mm3 RBC 3.24 L (3.65-5.03) M/mm3 Hgb 8.1 L (11.8-15.2) gm/dl Hct 24.3 L (35.5-45.6) % MCV 75 L (84-94) fl MCH 25 L (28-32) pg MCHC 33 (32-34) % RDW 18.4 H (13.2-15.2) % Plt Count 175 (140-440) K/mm3 Lymph % (Auto) 15.6 (13.4-35.0) % [place] % (Auto) 8.9 H (0.0-7.3) % Eos % (Auto) 1.8 (0.0-4.3) % Baso % (Auto) 1.3 (0.0-1.8) % Lymph # 1.2 (1.2-5.4) K/mm3 [place] # 0.7 (0.0-0.8) K/mm3 Eos # 0.1 (0.0-0.4) K/mm3 Baso # 0.1 (0.0-0.1) K/mm3 Seg Neutrophils % 72.4 H (40.0-70.0) % Seg Neutrophils # 5.7 (1.8-7.7) K/mm3 Sodium 144 (137-145) mmol/L Potassium 4.6 (3.6-5.0) mmol/L Chloride 109.1 H (98-107) mmol/L Carbon Dioxide 15 L (22-30) mmol/L Anion Gap 25 mmol/L BUN 72 H (9-20) mg/dL Creatinine 4.5 H (0.8-1.5) mg/dL Estimated GFR 16 ml/min BUN/Creatinine Ratio 16 % Glucose 96 (75-100) mg/dL Calcium 7.9 L (8.4-10.2) mg/dL - EKG Data -: EKG Interpreted by Co EKG shows normal: sinus rhythm, axis (47), QRS complexes (83), ST-T waves (lat t wave inv) Rate: normal (86) - EKG Data When compared to previous EKG there are: changes noted - Radiology Data Radiology results: report reviewed xr chest: New small bilateral pleural effusions. Patchy alveolar densities present in both bases although less dense than prior study. Suggesting residual versus recurrent infiltrates or atelectasis - Medical Decision Making Bilateral pleural effusion Cause of respiratory distress Associated hypoxia Patient require BiPAP support and supp O2 Provided Lasix 80mg IV Nitropaste 1 inch Improvement in symptoms with treatment Cardiac enzymes, BNP, coags ordered and pending EKG shows upright T waves in lateral and inferior leads whereas previous EKG showed lateral and inferior T-wave inversions. Renal insufficiency Chronic and around baseline No hyperkalemia - Differential Diagnosis pneumonia, CHF, PE, bronchitis, asthma, NH Critical Care Time: No Critical care attestation.: If time is entered above; I have spent that time in minutes in the direct care of this critically ill patient, excluding procedure time. ED Disposition Clinical Impression: Bilateral pleural effusion, Dyspnea, CRI (chronic renal insufficiency), HTN ( hypertension), Anemia Disposition: -09 OP ADMIT IP TO THIS HOSP Is pt being admited?: Yes Condition: Stable Time of Disposition: 04:23 (Dr Castillo/hosp)
[2017-11-27 05:21] LABS: INR 1.09 (0.87-1.13)
[2017-11-27 05:22] LABS: Partial Thromboplastin Time 36.8 Sec. (24.2-36.6)
[2017-11-27 05:24] LABS: Creatine Kinase MB 7.9 ng/mL (0.0-4.0)
[2017-11-27 06:20] LABS: Chol/HDL Ratio 2.29 %
[2017-11-27] MEDS ORDERED: PERCOCET 5/325 PO PRN (11:52)
[2017-11-27] MEDS ORDERED: AMBIEN PO PRN (11:52)
[2017-11-27] MEDS ORDERED: PROVENTIL IH PRN (11:52)
[2017-11-27] MEDS ORDERED: D50W (25GM) Syringe IV PRN (11:55)
[2017-11-27] MEDS ORDERED: ZOFRAN IV PRN (11:55)
[2017-11-27] MEDS ORDERED: DULCOLAX PR PRN (11:55)
[2017-11-27] MEDS ORDERED: APRESOLINE IV PRN (11:55)
[2017-11-27] MEDS ORDERED: TYLENOL PO PRN (11:55)
--- NOTE | 2017-11-27 12:06 | History and Physical Report ---
History of Present Illness Date of admission: 11/27/17 07:01 Chief complaint: I'm swelling up and short of breath History of present illness: 7-year-old male past medical history of CHF, COPD, diabetes, history of NM, CAD status post stent 2, hypertension and chronic renal disease. His kidney disease having worsening over time, he states that he saw nephrology and he was planned for AV graft for dialysis that he would probably need in the future. He states that the last time was in hospital his diuretics were discontinued. Since being discharged having progressively swelling getting more short of breath and more dyspneic on exertion. The swelling got out of control and he agrees with very orthopneic prompting him to come to the hospital for evaluation Patient denies chest pain, he denies cough, denies wheezing He denies fevers, denies chills Denies focal weakness, She denies pain in his extremities Past History Past Medical History: CAD (sp stent x2), diabetes (insulin dependent, type 2), heart failure, hypertension, hyperlipidemia, renal failure (not on HD, but planned for it), other Social history: smoking (currently) Family history: hypertension Medications and Allergies Allergies Allergy/AdvReac Type Severity Reaction Status Date / Time No Known Allergies Allergy Verified 06/03/17 09:20 Home Medications Medication Instructions Recorded Confirmed Last Taken Type AtorvaSTATin [Lipitor] 20 mg PO QHS #30 tablet 11/08/17 11/27/17 11/26/17 Rx Labetalol [Normodyne TAB] 200 mg PO BID #60 tablet 11/08/17 11/27/17 11/26/17 Rx NIFEdipine XL [Procardia Xl] 30 mg PO QDAY #30 tablet 11/08/17 11/27/17 Rx Potassium Chloride [K-Dur] 20 meq PO QDAY 11/27/17 11/27/17 11/26/17 History Sodium Bicarbonate 650 mg PO TID 11/27/17 11/27/17 11/26/17 History hydrALAZINE [Apresoline TAB] 100 mg PO QDAY 11/27/17 11/27/17 11/26/17 History Active Meds: Active Medications Albuterol (Proventil) 2.5 mg IH Q4HRT PRN PRN Reason: Shortness Of Breath Aspirin (Aspirin) 81 mg PO ONCE [facility] Atorvastatin Calcium (Lipitor) 20 mg PO QHS [facility] Clopidogrel Bisulfate (Plavix) 75 mg PO DAILY [facility] Hydralazine HCl (Apresoline) 100 mg PO TID [facility] Labetalol HCl (Normodyne) 200 mg PO BID [facility] Nifedipine (Procardia Xl) 30 mg PO QDAY [facility] Oxycodone/Acetaminophen (Percocet 5/325) 1 tab PO Q6H PRN PRN Reason: Pain, Moderate (4-6) Sodium Bicarbonate (Sodium Bicarbonate) 1,300 mg PO TID [facility] Zolpidem Tartrate (Ambien) 5 mg PO QHS PRN PRN Reason: Insomnia Review of Systems All systems: negative (14 point review of systems otherwise negative except as stated in HPI) Exam - Constitutional Vitals: Temp Pulse Resp BP Pulse Ox 97.8 F 90 21 194/96 99 11/27/17 03:03 11/27/17 07:50 11/27/17 07:50 11/27/17 07:50 11/27/17 07:50 General appearance: Present: no acute distress, well-nourished - EENT Eyes: Present: PERRL ENT: hearing intact, clear oral mucosa - Neck Neck: Present: supple, normal ROM - Respiratory Respiratory effort: normal Respiratory: bilateral: diminished, rales - Cardiovascular Heart Sounds: Present: S1 & S2. Absent: rub, click - Extremities Extremities: pulses symmetrical Extremity abnormal: edema (bipedal, 4+, anasarca) Peripheral Pulses: within normal limits - Abdominal General gastrointestinal: Present: soft, non-tender, non-distended, normal bowel sounds Male genitourinary: Present: normal - Integumentary Integumentary: Present: clear, warm, dry - Musculoskeletal Musculoskeletal: gait normal, strength equal bilaterally - Psychiatric Psychiatric: appropriate mood/affect, intact judgment & insight - Neurologic Neurologic: CNII-XII intact, moves all extremities Results - Labs CBC & Chem 7: 11/26/17 23:10 11/26/17 23:10 Labs: Laboratory Last Values WBC 7.8 K/mm3 (4.5-11.0) 11/26/17 23:10 RBC 3.24 M/mm3 (3.65-5.03) L 11/26/17 23:10 Hgb 8.1 gm/dl (11.8-15.2) L 11/26/17 23:10 Hct 24.3 % (35.5-45.6) L 11/26/17 23:10 MCV 75 fl (84-94) L 11/26/17 23:10 MCH 25 pg (28-32) L 11/26/17 23:10 MCHC 33 % (32-34) 11/26/17 23:10 RDW 18.4 % (13.2-15.2) H 11/26/17 23:10 Plt Count 175 K/mm3 (140-440) 11/26/17 23:10 Lymph % (Auto) 15.6 % (13.4-35.0) 11/26/17 23:10 [place] % (Auto) 8.9 % (0.0-7.3) H 11/26/17 23:10 Eos % (Auto) 1.8 % (0.0-4.3) 11/26/17 23:10 Baso % (Auto) 1.3 % (0.0-1.8) 11/26/17 23:10 Lymph # 1.2 K/mm3 (1.2-5.4) 11/26/17 23:10 [place] # 0.7 K/mm3 (0.0-0.8) 11/26/17 23:10 Eos # 0.1 K/mm3 (0.0-0.4) 11/26/17 23:10 Baso # 0.1 K/mm3 (0.0-0.1) 11/26/17 23:10 Seg Neutrophils % 72.4 % (40.0-70.0) H 11/26/17 23:10 Seg Neutrophils # 5.7 K/mm3 (1.8-7.7) 11/26/17 23:10 PT 14.7 Sec. (12.2-14.9) 11/27/17 04:14 INR 1.09 (0.87-1.13) 11/27/17 04:14 APTT 36.8 Sec. (24.2-36.6) H 11/27/17 04:14 Sodium 144 mmol/L (137-145) 11/26/17 23:10 Potassium 4.6 mmol/L (3.6-5.0) 11/26/17 23:10 Chloride 109.1 mmol/L (98-107) H 11/26/17 23:10 Carbon Dioxide 15 mmol/L (22-30) L 11/26/17 23:10 Anion Gap 25 mmol/L 11/26/17 23:10 BUN 72 mg/dL (9-20) H 11/26/17 23:10 Creatinine 4.5 mg/dL (0.8-1.5) H 11/26/17 23:10 Estimated GFR 16 ml/min 11/26/17 23:10 BUN/Creatinine Ratio 16 % 11/26/17 23:10 Glucose 96 mg/dL (75-100) 11/26/17 23:10 Calcium 7.9 mg/dL (8.4-10.2) L 11/26/17 23:10 Total Creatine Kinase 250 units/L (55-170) H 11/27/17 04:32 CK-MB (CK-2) 7.9 ng/mL (0.0-4.0) H 11/27/17 04:32 CK-MB (CK-2) Rel Index 3.1 (0-4) 11/27/17 04:32 Troponin T 0.116 ng/mL (0.00-0.029) H* 11/27/17 08:00 Triglycerides 70 mg/dL (2-149) 11/27/17 04:32 Cholesterol 126 mg/dL (50-199) 11/27/17 04:32 LDL Cholesterol Direct 57 mg/dL (50-130) 11/27/17 04:32 HDL Cholesterol 55 mg/dL (40-59) 11/27/17 04:32 Cholesterol/HDL Ratio 2.29 % 11/27/17 04:32 - Imaging and Cardiology Chest x-ray: image reviewed (interval reduction in right basilar patchy infiltrates, with development of bilateral pleural effusions) Assessment and Plan Assessment and plan: 67-year-old man with past medical history of hypertension diabetes CHF, CAD, hyperlipidemia, smoker who presents to the hospital with anasarca. Patient has worsening chronic kidney disease and was planned for hemodialysis but has not started it yet, and his diuretics were recently discontinued. His fluid overload is most likely due to poor kidney excretion of excessive orthopnea CHF exacerbation IV Lasix, nephrology consulted, and patient has not responded to IV Lasix pushes will need Lasix drip and possibly hemodialysis Acute hypoxic respiratory failure Continue oxygen supplementation, will wean as tolerated Hypertensive urgency Hydralazine IV as needed, restart home medications Type 2 diabetes, insulin-dependent Optimize insulin Elevated troponin Was likely nonspecific related to his chronic kidney disease, but given history of coronary artery disease and NM 2 and stents, I'll consult cardiology DVT prophylaxis, subcutaneous heparin Plan of care discussed with patient/family: Yes
[2017-11-27] MEDS ORDERED: ASPIRIN PO SCH (13:00)
[2017-11-27] MEDS: APRESOLINE PO SCH ×2 (14:21→22:37)
[2017-11-27] MEDS: HEPARIN SUB-Q SCH ×2 (14:21→22:38)
[2017-11-27] MEDS: PROCARDIA XL PO SCH (16:06)
[2017-11-27] MEDS: SODIUM BICARBONATE PO SCH ×2 (16:06→22:37)
[2017-11-27] MEDS ORDERED: LASIX IV SCH (18:00)
--- NOTE | 2017-11-27 22:01 | Consultation ---
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 Patient's kidney function has been slowly progressing. He has a left upper extremity AV fistula. He will need transposition. He was hospitalized here last month from 11/04 till with acute pulmonary edema. Patient was discharged home on Lasix 80 mg twice a day. He also had severe anemia and had a colonoscopy with polypectomy. Patient's presents now with shortness of breath of 3-4 days duration with swelling of the hands and bilateral lower extremities. He's also been coughing productive of sputum. He says the Lasix was discontinued on discharge from the hospital and so he has not been taking it. Obviously there was a miscommunication. Past History Past Medical History: CAD (sp stent x2), diabetes (insulin dependent, type 2), heart failure, hypertension, hyperlipidemia, renal failure (not on HD, but planned for it), other (sleep apnea) Past Surgical History: Other (Percutaneous transluminal coronary angioplasty and stenting ) Social history: smoking (currently) Family history: CAD (Both Parents), diabetes (Both Parents), hypertension (Both Parents) Medications and Allergies Allergies Allergy/AdvReac Type Severity Reaction Status Date / Time No Known Allergies Allergy Verified 06/03/17 09:20 Home Medications Medication Instructions Recorded Confirmed Last Taken Type AtorvaSTATin [Lipitor] 20 mg PO QHS #30 tablet 11/08/17 11/27/17 11/26/17 Rx Labetalol [Normodyne TAB] 200 mg PO BID #60 tablet 11/08/17 11/27/17 11/26/17 Rx NIFEdipine XL [Procardia Xl] 30 mg PO QDAY #30 tablet 11/08/17 11/27/17 Rx Potassium Chloride [K-Dur] 20 meq PO QDAY 11/27/17 11/27/17 11/26/17 History Sodium Bicarbonate 650 mg PO TID 11/27/17 11/27/17 11/26/17 History hydrALAZINE [Apresoline TAB] 100 mg PO QDAY 11/27/17 11/27/1718 History Active Meds: Active Medications Acetaminophen (Tylenol) 650 mg PO Q4H PRN PRN Reason: Pain MILD(1-3)/Fever >100.5/DAILEY Albuterol (Proventil) 2.5 mg IH Q4HRT PRN PRN Reason: Shortness Of Breath Aspirin (Aspirin) 81 mg PO ONCE [facility] Atorvastatin Calcium (Lipitor) 20 mg PO QHS [facility] Bisacodyl (Dulcolax) 10 mg NE QDAY PRN PRN Reason: [place] [facility] [place]opidogrel Bisulfate (Plavix) 75 mg PO DAILY [facility] Dextrose (D50w (25gm) Syringe) 50 ml IV PRN PRN PRN Reason: Hypoglycemia Furosemide (Lasix) 40 mg IV BID@0600,1800 [facility] Last Admin: 11/27/17 18:41 Dose: 40 mg Heparin Sodium (Porcine) (Heparin) 5,000 unit SUB-Q Q8HR [facility] Last Admin: 11/27/17 14:21 Dose: 5,000 unit Hydralazine HCl (Apresoline) 100 mg PO TID [facility] Last Admin: 11/27/17 14:21 Dose: 100 mg Hydralazine HCl (Apresoline) 10 mg IV Q4HR PRN PRN Reason: BP >160/100 Last Admin: 11/27/17 15:22 Dose: 10 mg Influenza Virus Vaccine Quadrival (Fluarix Quad [id number](36 Mos+) 0.5 ml IM .ONCE ONE Stop: 11/28/17 12:01 Insulin Aspart (Novolog) 0 units SUB-Q ACHS [facility] PRN Reason: Protocol Labetalol HCl (Normodyne) 200 mg PO BID [facility] Nifedipine (Procardia Xl) 30 mg PO QDAY [facility] Last Admin: 11/27/17 16:06 Dose: 30 mg Ondansetron HCl (Zofran) 4 mg IV Q8H PRN PRN Reason: N/V unrelieved by [facility] Oxycodone/Acetaminophen (Percocet 5/325) 1 tab PO Q6H PRN PRN Reason: Pain, Moderate (4-6) Sodium Bicarbonate (Sodium Bicarbonate) 1,300 mg PO TID [facility] Last Admin: 11/27/17 16:06 Dose: 1,300 mg Zolpidem Tartrate (Ambien) 5 mg PO QHS PRN PRN Reason: Insomnia Review of Systems All systems: negative (Constitutional: no fever or chills. Appetite is poor but no weight loss. HEENT: No sore throat or sinus drainage no hearing or vision impairment . Cardiovascular: No chest pain, shortness of breath, palpitations, lower extremity swelling or dizziness. Respiratory: Coughing but not productive of sputum, shortness of breath, hemoptysis or wheezing. Gastrointestinal: No nausea, vomiting, diarrhea, abdominal pain, hematemesis or melena. Genitourinary: No frequency urgency dysuria or hematuria. hematologic: No abnormal bleeding or bruising. Integumentary: no pruritus or rash. Neurological: No headache no focal weakness or numbness, no syncope or seizures. Musculoskeletal: No joint pains no stiffness. Psychiatry: no anxiety or depression) Exam - Vital Signs Vital signs: Vital Signs Temp Pulse Resp BP Pulse Ox 98 F 82 14 139/70 100 11/26/17 22:35 11/26/17 22:35 11/26/17 22:35 11/26/17 22:35 11/26/17 22:35 - Physical Exam Narrative exam: Middle-aged -[place] male lying in bed in no acute distress HEENT: NCAT, pink oral mucous membrane Neck: Supple, no venous distention CVS: S1S2 RRR with no murmur, rub or gallop Chest: Clear to auscultation Abdomen: Protuberant, soft, nontender, no organomegaly, bowel sounds are present Extremities: No edema, no clubbing Skin: Warm and dry, no rash, Neuro: Awake, alert no focal deficits Results - Lab Results 11/26/17 23:10 11/26/17 23:10 Most recent lab results Calcium 7.9 mg/dL (8.4-10.2) L 11/26/17 23:10 Assessment and Plan - Patient Problems (1) Hypertensive chronic kidney disease with stage 1 through stage 4 chronic kidney disease, or unspecified chronic kidney disease Current Visit: No Status: Acute Plan to address problem: Resume antihypertensive medications and follow-up blood pressure (2) Hypertensive urgency Current Visit: No Status: Acute Plan to address problem: iv antihypertensive medications as indicated (3) Physical deconditioning Current Visit: No Status: Acute Plan to address problem: PT OT evaluation and treatment (4) Pulmonary edema Current Visit: No Status: Acute Qualifiers: Chronicity: acute Qualified Code(s): J81.0 - Acute pulmonary edema Plan to address problem: Continue IV diuretics. Monitor intake and output (5) Shortness of breath Current Visit: No Status: Acute Plan to address problem: Secondary to the above
[2017-11-27] MEDS: NOVOLOG SUB-Q SCH (22:37)
[2017-11-27] MEDS: NORMODYNE PO SCH (22:38)
[2017-11-28 04:23] LABS: Basophils # (Auto) 0.1 K/mm3 (0.0-0.1); Basophils % (Auto) 0.9 % (0.0-1.8); Eosinophils # (Auto) 0.1 K/mm3 (0.0-0.4); Eosinophils % (Auto) 1.2 % (0.0-4.3); Hematocrit 23.6 % (35.5-45.6); Hemoglobin 7.8 gm/dl (11.8-15.2); Lymphocytes # (Auto) 0.6 K/mm3 (1.2-5.4); Lymphocytes % (Auto) 7.7 % (13.4-35.0); Mean Corpuscular HGB Conc 33 % (32-34); Mean Corpuscular Volume 75 fl (84-94); Monocytes # (Auto) 0.8 K/mm3 (0.0-0.8); Monocytes % (Auto) 10.4 % (0.0-7.3); Platelet Count 151 K/mm3 (140-440); Red Blood Count 3.16 M/mm3 (3.65-5.03); Red Cell Distribution Width 18.3 % (13.2-15.2)
[2017-11-28 04:25] LABS: Mean Corpuscular Hemoglobin 25 pg (28-32)
[2017-11-28 04:34] LABS: Calcium 7.7 mg/dL (8.4-10.2)
[2017-11-28] MEDS: HEPARIN SUB-Q SCH ×3 (06:26→23:02)
[2017-11-28] MEDS: LASIX IV SCH ×2 (06:26→18:00)
[2017-11-28] MEDS: SODIUM BICARBONATE PO SCH ×3 (08:50→23:03)
[2017-11-28] MEDS: APRESOLINE PO SCH ×3 (08:50→23:03)
[2017-11-28] MEDS: NOVOLOG SUB-Q SCH ×4 (08:50→23:35)
--- NOTE | 2017-11-28 10:44 | Progress Note ---
<JOSE BURT - Last Filed: 11/28/17 15:11> Assessment and Plan Assessment and plan: 67-year-old man with past medical history of hypertension diabetes CHF, CAD, hyperlipidemia, smoker who presents to the hospital with anasarca. Patient has worsening chronic kidney disease and was planned for hemodialysis but has not started it yet, and his diuretics were recently discontinued. His fluid overload is most likely due to poor kidney excretion of excessive orthopnea Acute respiratory failure with hypoxia Patient oxygen saturation improved with 2LNC; currently SPO2 98%. No acute respiratory distress noted. Aggressive Nebulizers/Inhalers ABG when necessary Oxygen supplement Supportive care Acute on chronic diastolic Congestive heart failure Echocardiogram EF 55-60% on 01/2017 Continue IV Diuresis, beta blockers and ACEI/ARB Strict I&O's and daily weights Low-sodium/cardiac diet/fluid restriction Closely monitor electrolytes Cardiology evaluation Diabetes mellitus Accu-Chek before meals and at bedtime Sliding scale insulin/NovoLog ADA carbohydrate consistent diet Hypertensive urgency Continue home antihypertensive medications Closely monitor blood pressure Elevated troponin Was likely due to CKD Cardiology following Chronic kidney disease Nephrology following Chronic anemia H&H stable for patient at this point; no blood transfusions needed Closely monitor H&H DVT prophylaxis Heparin History Interval history: Patient complains dyspnea on exertion.Labs and nursing notes reviewed. Hospitalist Physical - Constitutional Vitals: Temp Pulse Resp BP Pulse Ox 98.5 F 84 18 135/65 99 11/28/17 04:48 11/28/17 04:48 11/28/17 04:48 11/28/17 04:48 11/28/17 04:48 General appearance: Present: no acute distress, well-nourished - EENT Eyes: Present: PERRL ENT: hearing intact - Neck Neck: Present: supple - Respiratory Respiratory effort: normal Respiratory: negative: other (crackles) - Cardiovascular Rhythm: regular Heart Sounds: Present: S1 & S2 - Abdominal General gastrointestinal: soft, non-tender - Integumentary Integumentary: Present: clear, warm, dry - Psychiatric Psychiatric: appropriate mood/affect - Neurologic Neurologic: moves all extremities - Allied Health Allied health notes reviewed: nursing Results - Labs CBC & Chem 7: 11/28/17 04:00 11/28/17 04:00 Labs: Laboratory Last Values WBC 7.4 K/mm3 (4.5-11.0) 11/28/17 04:00 RBC 3.16 M/mm3 (3.65-5.03) L 11/28/17 04:00 Hgb 7.8 gm/dl (11.8-15.2) L 11/28/17 04:00 Hct 23.6 % (35.5-45.6) L 11/28/17 04:00 MCV 75 fl (84-94) L 11/28/17 04:00 MCH 25 pg (28-32) L 11/28/17 04:00 MCHC 33 % (32-34) 11/28/17 04:00 RDW 18.3 % (13.2-15.2) H 11/28/17 04:00 Plt Count 151 K/mm3 (140-440) 11/28/17 04:00 Lymph % (Auto) 7.7 % (13.4-35.0) L 11/28/17 04:00 [place] % (Auto) 10.4 % (0.0-7.3) H 11/28/17 04:00 Eos % (Auto) 1.2 % (0.0-4.3) 11/28/17 04:00 Baso % (Auto) 0.9 % (0.0-1.8) 11/28/17 04:00 Lymph # 0.6 K/mm3 (1.2-5.4) L 11/28/17 04:00 [place] # 0.8 K/mm3 (0.0-0.8) 11/28/17 04:00 Eos # 0.1 K/mm3 (0.0-0.4) 11/28/17 04:00 Baso # 0.1 K/mm3 (0.0-0.1) 11/28/17 04:00 Seg Neutrophils % 79.8 % (40.0-70.0) H 11/28/17 04:00 Seg Neutrophils # 5.9 K/mm3 (1.8-7.7) 11/28/17 04:00 PT 14.7 Sec. (12.2-14.9) 11/27/17 04:14 INR 1.09 (0.87-1.13) 11/27/17 04:14 APTT 36.8 Sec. (24.2-36.6) H 11/27/17 04:14 Sodium 146 mmol/L (137-145) H 11/28/17 04:00 Potassium 3.9 mmol/L (3.6-5.0) 11/28/17 04:00 Chloride 111.7 mmol/L (98-107) H 11/28/17 04:00 Carbon Dioxide 16 mmol/L (22-30) L 11/28/17 04:00 Anion Gap 22 mmol/L 11/28/17 04:00 BUN 72 mg/dL (9-20) H 11/28/17 04:00 Creatinine 4.5 mg/dL (0.8-1.5) H 11/28/17 04:00 Estimated GFR 16 ml/min 11/28/17 04:00 BUN/Creatinine Ratio 16 % 11/28/17 04:00 Glucose 85 mg/dL (75-100) 11/28/17 04:00 POC Glucose 95 (70-105) 11/28/17 07:32 Calcium 7.7 mg/dL (8.4-10.2) L 11/28/17 04:00 Total Creatine Kinase 250 units/L (55-170) H 11/27/17 04:32 CK-MB (CK-2) 7.9 ng/mL (0.0-4.0) H 11/27/17 04:32 CK-MB (CK-2) Rel Index 3.1 (0-4) 11/27/17 04:32 Troponin T 0.148 ng/mL (0.00-0.029) H* 11/28/17 06:50 Triglycerides 70 mg/dL (2-149) 11/27/17 04:32 Cholesterol 126 mg/dL (50-199) 11/27/17 04:32 LDL Cholesterol Direct 57 mg/dL (50-130) 11/27/17 04:32 HDL Cholesterol 55 mg/dL (40-59) 11/27/17 04:32 Cholesterol/HDL Ratio 2.29 % 11/27/17 04:32 <MIKAYLA BARRETT M - Last Filed: 11/29/17 16:10> Hospitalist Physical - Constitutional Vitals: Temp Pulse Resp BP Pulse Ox 98.5 F 80 20 157/70 96 11/29/17 08:14 11/29/17 13:00 11/29/17 08:29 11/29/17 08:14 11/29/17 08:30 Results - Labs CBC & Chem 7: 11/28/17 04:00 11/28/17 04:00 Labs: Laboratory Last Values WBC 7.4 K/mm3 (4.5-11.0) 11/28/17 04:00 RBC 3.16 M/mm3 (3.65-5.03) L 11/28/17 04:00 Hgb 7.8 gm/dl (11.8-15.2) L 11/28/17 04:00 Hct 23.6 % (35.5-45.6) L 11/28/17 04:00 MCV 75 fl (84-94) L 11/28/17 04:00 MCH 25 pg (28-32) L 11/28/17 04:00 MCHC 33 % (32-34) 11/28/17 04:00 RDW 18.3 % (13.2-15.2) H 11/28/17 04:00 Plt Count 151 K/mm3 (140-440) 11/28/17 04:00 Lymph % (Auto) 7.7 % (13.4-35.0) L 11/28/17 04:00 [place] % (Auto) 10.4 % (0.0-7.3) H 11/28/17 04:00 Eos % (Auto) 1.2 % (0.0-4.3) 11/28/17 04:00 Baso % (Auto) 0.9 % (0.0-1.8) 11/28/17 04:00 Lymph # 0.6 K/mm3 (1.2-5.4) L 11/28/17 04:00 [place] # 0.8 K/mm3 (0.0-0.8) 11/28/17 04:00 Eos # 0.1 K/mm3 (0.0-0.4) 11/28/17 04:00 Baso # 0.1 K/mm3 (0.0-0.1) 11/28/17 04:00 Seg Neutrophils % 79.8 % (40.0-70.0) H 11/28/17 04:00 Seg Neutrophils # 5.9 K/mm3 (1.8-7.7) 11/28/17 04:00 PT 14.7 Sec. (12.2-14.9) 11/27/17 04:14 INR 1.09 (0.87-1.13) 11/27/17 04:14 APTT 36.8 Sec. (24.2-36.6) H 11/27/17 04:14 Sodium 146 mmol/L (137-145) H 11/28/17 04:00 Potassium 3.9 mmol/L (3.6-5.0) 11/28/17 04:00 Chloride 111.7 mmol/L (98-107) H 11/28/17 04:00 Carbon Dioxide 16 mmol/L (22-30) L 11/28/17 04:00 Anion Gap 22 mmol/L 11/28/17 04:00 BUN 72 mg/dL (9-20) H 11/28/17 04:00 Creatinine 4.5 mg/dL (0.8-1.5) H 11/28/17 04:00 Estimated GFR 16 ml/min 11/28/17 04:00 BUN/Creatinine Ratio 16 % 11/28/17 04:00 Glucose 85 mg/dL (75-100) 11/28/17 04:00 POC Glucose 91 (70-105) 11/29/17 12:08 Calcium 7.7 mg/dL (8.4-10.2) L 11/28/17 04:00 Total Creatine Kinase 167 units/L (55-170) 11/28/17 15:02 CK-MB (CK-2) 4.5 ng/mL (0.0-4.0) H 11/28/17 15:02 CK-MB (CK-2) Rel Index 2.6 (0-4) 11/28/17 15:02 Troponin T 0.175 ng/mL (0.00-0.029) H* 11/28/17 15:02 NT-Pro-B Natriuret Pep 92558 pg/mL (0-900) H 11/27/17 04:32 Triglycerides 70 mg/dL (2-149) 11/27/17 04:32 Cholesterol 126 mg/dL (50-199) 11/27/17 04:32 LDL Cholesterol Direct 57 mg/dL (50-130) 11/27/17 04:32 HDL Cholesterol 55 mg/dL (40-59) 11/27/17 04:32 Cholesterol/HDL Ratio 2.29 % 11/27/17 04:32
[2017-11-28] MEDS ORDERED: ZAROXOLYN PO SCH (11:00)
[2017-11-28] MEDS: NORMODYNE PO SCH ×2 (11:29→23:03)
[2017-11-28] MEDS: PLAVIX PO SCH (11:30)
[2017-11-28] MEDS: PROCARDIA XL PO SCH (11:30)
--- NOTE | 2017-11-28 11:54 | Consultation ---
History of Present Illness Consult date: 11/28/17 Requesting physician: MIKAYLA BARRETT Consult reason: congestive heart failure History of present illness: The pt is a 67 YO male with a past medical history significant for CAD s/p PCI of 1st obtuse and distal circ in 2011, diastolic HF, HTN, HLP, DM, CKD, ICH, pulm HTN and tobacco use. He is followed in our office by Dr. Merlos. He presented with c/o progressively worsening SOB, ROSS, and BLE swelling for the past several weeks. The pt was recently discharged from [facility] on 11/08/2017 following eval/treatment for symptomatic anemia, GIB, PNA, acute on chronic renal failure, respiratory failure. Pt's states that pt was not discharged home on diuretics at that time and believes this may be contributing to pt's current symptoms. Per pt's , pt sees a fresh food manager regularly and it is believed that HD will be required in the near future. Pt has a left upper extremity AV fistula and will need transposition. Pt denies any chest pain, palpitations, n/v, diaphoresis, dizziness or syncope. CXR with small bilateral pleural effusions. Lexiscan MPI stress test 02/2016 was negative for ischemia. Echo done 01/25/2017 demonstrated EF 55-60%, biatrial mild dilation, moderate to severe LVH, RV mildly dilated, mild to moderate AR, mild MR, moderate pulmonary HTN, moderate pleural effusion, small pericardial effusion. Past History Past Medical History: CAD (sp stent x2), diabetes (insulin dependent, type 2), heart failure, hypertension, hyperlipidemia, renal failure (not on HD, but planned for it), other (sleep apnea) Past Surgical History: Other (Percutaneous transluminal coronary angioplasty and stenting ) Social history: smoking (currently) Family history: CAD (Both Parents), diabetes (Both Parents), hypertension (Both Parents) Medications and Allergies Allergies Allergy/AdvReac Type Severity Reaction Status Date / Time No Known Allergies Allergy Verified 06/03/17 09:20 Home Medications Medication Instructions Recorded Confirmed Last Taken Type AtorvaSTATin [Lipitor] 20 mg PO QHS #30 tablet 11/08/17 11/27/17 11/26/17 Rx Labetalol [Normodyne TAB] 200 mg PO BID #60 tablet 11/08/17 11/27/17 11/26/17 Rx NIFEdipine XL [Procardia Xl] 30 mg PO QDAY #30 tablet 11/08/17 11/27/17 Rx Potassium Chloride [K-Dur] 20 meq PO QDAY 11/27/17 11/27/17 11/26/17 History Sodium Bicarbonate 650 mg PO TID 11/27/17 11/27/17 11/26/17 History hydrALAZINE [Apresoline TAB] 100 mg PO QDAY 11/27/17 11/27/17 11/26/17 History Active Meds: Active Medications Acetaminophen (Tylenol) 650 mg PO Q4H PRN PRN Reason: Pain MILD(1-3)/Fever >100.5/DAILEY Albuterol (Proventil) 2.5 mg IH Q4HRT PRN PRN Reason: Shortness Of Breath Aspirin (Halfprin Ec) 81 mg PO QDAY [facility] Atorvastatin Calcium (Lipitor) 20 mg PO QHS [facility] Last Admin: 11/27/17 22:38 Dose: 20 mg Bisacodyl (Dulcolax) 10 mg [place] QDAY PRN PRN Reason: Constipation unrelieved by MOM Clopidogrel Bisulfate (Plavix) 75 mg PO DAILY [facility] Dextrose (D50w (25gm) Syringe) 50 ml IV PRN PRN PRN Reason: Hypoglycemia Furosemide (Lasix) 60 mg IV BID@0600,1800 [facility] Last Admin: 11/28/17 06:26 Dose: 60 mg Heparin Sodium (Porcine) (Heparin) 5,000 unit SUB-Q Q8HR [facility] Last Admin: 11/28/17 06:26 Dose: 5,000 unit Hydralazine HCl (Apresoline) 100 mg PO TID [facility] Last Admin: 11/28/17 08:50 Dose: 100 mg Hydralazine HCl (Apresoline) 10 mg IV Q4HR PRN PRN Reason: BP >160/100 Last Admin: 11/27/17 15:22 Dose: 10 mg Influenza Virus Vaccine Quadrival (Fluarix Quad [id number](36 Mos+) 0.5 ml IM .ONCE ONE Stop: 11/28/17 12:01 Insulin Aspart (Novolog) 0 units SUB-Q ACHS [facility] PRN Reason: Protocol Last Admin: 11/28/17 08:50 Dose: Not Given Labetalol HCl (Normodyne) 200 mg PO BID [facility] Last Admin: 11/27/17 22:38 Dose: 200 mg Metolazone (Zaroxolyn) 5 mg PO QDAY [facility] Nifedipine (Procardia Xl) 30 mg PO QDAY [facility] Last Admin: 11/27/17 16:06 Dose: 30 mg Ondansetron HCl (Zofran) 4 mg IV Q8H PRN PRN Reason: N/V unrelieved by Reglan Oxycodone/Acetaminophen (Percocet 5/325) 1 tab PO Q6H PRN PRN Reason: Pain, Moderate (4-6) Sodium Bicarbonate (Sodium Bicarbonate) 1,300 mg PO TID [facility] Last Admin: 11/28/17 08:50 Dose: 1,300 mg Zolpidem Tartrate (Ambien) 5 mg PO QHS PRN PRN Reason: Insomnia Review of Systems Constitutional: no weight loss, no weight gain, no fever, no chills, no sweats Ears, nose, mouth and throat: no ear pain, no nose pain, no sinus pressure, no sinus pain Cardiovascular: orthopnea, leg edema, no chest pain, no palpitations, no rapid/ irregular heart beat, no edema, no syncope, no lightheadedness Respiratory: shortness of breath, dyspnea on exertion, no cough, no congestion, no wheezing, no pain on inspiration Gastrointestinal: no abdominal pain, no nausea, no vomiting, no diarrhea, no constipation, no change in bowel habits, no hematemesis Genitourinary Male: no dysuria, no hematuria, no flank pain, no discharge, no urinary frequency, no urinary hesitancy Musculoskeletal: no neck stiffness, no neck pain Integumentary: no rash Neurological: no head injury, no syncope Psychiatric: no anxiety Endocrine: no cold intolerance, no heat intolerance Hematologic/Lymphatic: no easy bruising, no easy bleeding Allergic/Immunologic: no urticaria, no wheezing Physical Examination Vital Signs Temp Pulse Resp BP Pulse Ox 98 F 82 14 139/70 100 11/26/17 22:35 11/26/17 22:35 11/26/17 22:35 11/26/17 22:35 11/26/17 22:35 General appearance: no acute distress HEENT: Positive: PERRL, Normocephaly, Mucus Membranes Moist Neck: Positive: neck supple, trachea midline Cardiac: Positive: Reg Rate and Rhythm, S1/S2, Systolic Murmur Lungs: Positive: Rales (bibasilar) Neuro: Positive: Grossly Intact, Cranial Nerve 2-12 Intact Abdomen: Positive: Soft. Negative: Tender Skin: Positive: Clear. Negative: Rash Musculoskeletal: No Pain Extremities: Present: +1 Edema (BLE) Results 11/28/17 04:00 11/28/17 04:00 CBC 11/28/17 Range/Units 04:00 WBC 7.4 (4.5-11.0) K/mm3 RBC 3.16 L (3.65-5.03) M/mm3 Hgb 7.8 L (11.8-15.2) gm/dl Hct 23.6 L (35.5-45.6) % Plt Count 151 (140-440) K/mm3 Lymph # 0.6 L (1.2-5.4) K/mm3 [place] # 0.8 (0.0-0.8) K/mm3 Eos # 0.1 (0.0-0.4) K/mm3 Baso # 0.1 (0.0-0.1) K/mm3 Comprehensive Metabolic Panel 11/28/17 Range/Units 04:00 Sodium 146 H (137-145) mmol/L Potassium 3.9 (3.6-5.0) mmol/L Chloride 111.7 H (98-107) mmol/L Carbon Dioxide 16 L (22-30) mmol/L BUN 72 H (9-20) mg/dL Creatinine 4.5 H (0.8-1.5) mg/dL Glucose 85 (75-100) mg/dL Calcium 7.7 L (8.4-10.2) mg/dL - Imaging and Cardiology Echo: report reviewed (01/25/2017 demonstrated EF 55-60%, biatrial mild dilation , moderate to severe LVH, RV mildly dilated, mild to moderate AR, mild MR, moderate pulmonary HTN, moderate pleural effusion, small pericardial effusion. ) Cardiac cath: report reviewed (PCI of 1st obtuse and distal circ in 2011) EKG: report reviewed, image reviewed EKG interpretations - Telemetry EKG Rhythm: Sinus Rhythm - EKG Sinus rhythms and dysrhythmias: sinus rhythm Chamber hypertrophy or enlargement: left ventricular hypertro Assessment and Plan Assessment: Acute HF with preserved EF CKD / volume overload Elevated troponin - ECG with NAF; pt denies chest pain; currently nonspecific in setting of anemia and CKD; cont to trend with CK-MB CAD s/p PCI of 1st obtuse and distal circ in 2011 Anemia of chronic disease HTN HLP DM H/o ICH Mild to moderate AR / Mild MR Tobacco use Plan: Agree with current cardiac regimen. Volume optimization per nephrology. Cont to trend Mitzi. Assessment and plan reviewed with pt and pt's at bedside. The patient has been seen in conjunction with Dr. Villavicencio who agrees with the assessment and plan of care.
[2017-11-28] MEDS ORDERED: Fluarix Quad 2017-2018(36 MOS+ IM ONE (12:00)
[2017-11-28] MEDS: HALFPRIN EC PO SCH (13:49)
[2017-11-28 16:27] LABS: Creatine Kinase MB 4.5 ng/mL (0.0-4.0)
--- NOTE | 2017-11-28 19:12 | Progress Note ---
Assessment and Plan - Patient Problems (1) Acute on chronic diastolic heart failure Current Visit: No Status: Acute Plan to address problem: Patient improving with diuretics. Reevaluate in the morning (2) Pulmonary edema Current Visit: No Status: Acute Qualifiers: Chronicity: acute Qualified Code(s): J81.0 - Acute pulmonary edema Plan to address problem: Continue IV diuretics. Monitor intake and output. Hopefully continues to improve (3) Hypertensive chronic kidney disease with stage 1 through stage 4 chronic kidney disease, or unspecified chronic kidney disease Current Visit: No Status: Acute Plan to address problem: follow-up blood pressure (4) Hypertensive urgency Current Visit: No Status: Acute Plan to address problem: iv antihypertensive medications as indicated (5) Physical deconditioning Current Visit: No Status: Acute Plan to address problem: PT OT evaluation and treatment (6) Shortness of breath Current Visit: No Status: Acute Plan to address problem: Secondary to the above (7) Hypertensive chronic kidney disease with stage 1 through stage 4 chronic kidney disease, or unspecified chronic kidney disease Current Visit: Yes Status: Acute Plan to address problem: Follow-up blood pressure on current medications (8) Type 2 diabetes mellitus with diabetic chronic kidney disease Current Visit: Yes Status: Acute Plan to address problem: Blood sugar management by primary attending Subjective Date of service: 11/28/17 Principal diagnosis: chronic kidney disease with fluid overload Interval history: Patient seen lying in bed at bedside. He has no complaints. Feeling better. Swelling is improving and shortness of breath also Objective - Exam Narrative Exam: Middle-aged -[place]ic male lying in bed in no acute distress HEENT: NCAT, pink oral mucous membrane Neck: Supple, no venous distention CVS: S1S2 RRR with no murmur, rub or gallop Chest: Clear to auscultation Abdomen: Protuberant, soft, nontender, no organomegaly, bowel sounds are present Extremities: Mild edema resolving no clubbing Skin: Warm and dry, no rash, Neuro: Awake, alert no focal deficits - Vital Signs Vital signs: Vital Signs - 12hr 11/28/17 11/28/17 11/28/17 08:05 08:19 10:00 Temperature 98.5 F 98.1 F Pulse Rate 85 89 89 Respiratory 18 20 Rate Blood Pressure 131/67 75/50 Blood Pressure [Left] O2 Sat by Pulse 96 97 98 Oximetry 11/28/17 11/28/17 11/28/17 12:10 12:23 18:00 Temperature 98.6 F Pulse Rate 89 84 Respiratory 22 18 Rate Blood Pressure 148/69 149/71 Blood Pressure [Left] O2 Sat by Pulse 100 Oximetry 11/28/17 18:48 Temperature 97.9 F Pulse Rate 77 Respiratory 20 Rate Blood Pressure Blood Pressure 137/66 [Left] O2 Sat by Pulse 99 Oximetry - Lab 11/28/17 04:00 11/28/17 04:00 Most recent lab results Calcium 7.7 mg/dL (8.4-10.2) L 11/28/17 04:00
--- NOTE | 2017-11-28 23:35 | Consultation ---
History of Present Illness - Reason for Consult Consult date: 11/28/17 Complications of Dialysis Access Requesting physician: HI CORDON - History of Present Illness The patient is a 67 year old male with a history of chronic kidney disease who had creation of a left brachiobasilic AVF in May 2017. He has not progressed to ESRD requiring HD and has therefore never required revision with elevation of the fistula. He has been admitted to the hospital twice over the past 2 months for fluid overload and plueral effusions. He still has not progressed to needing HD however it is anticipated that he may require it soon. I was consulted for management. Past History Past Medical History: CAD (sp stent x2), diabetes (insulin dependent, type 2), heart failure, hypertension, hyperlipidemia, renal failure (not on HD, but planned for it), other (sleep apnea) Past Surgical History: Other (Percutaneous transluminal coronary angioplasty and stenting ) Social history: smoking (currently) Family history: CAD (Both Parents), diabetes (Both Parents), hypertension (Both Parents) Medications and Allergies Allergies Allergy/AdvReac Type Severity Reaction Status Date / Time No Known Allergies Allergy Verified 06/03/17 09:20 Home Medications Medication Instructions Recorded Confirmed Last Taken Type AtorvaSTATin [Lipitor] 20 mg PO QHS #30 tablet 11/08/17 11/27/17 11/26/17 Rx Labetalol [Normodyne TAB] 200 mg PO BID #60 tablet 11/08/17 11/27/17 11/26/17 Rx NIFEdipine XL [Procardia Xl] 30 mg PO QDAY #30 tablet 11/08/17 11/27/17 Rx Potassium Chloride [K-Dur] 20 meq PO QDAY 11/27/17 11/27/17 11/26/17 History Sodium Bicarbonate 650 mg PO TID 11/27/17 11/27/17 11/26/17 History hydrALAZINE [Apresoline TAB] 100 mg PO QDAY 11/27/17 11/27/17 11/26/17 History Active Meds: Active Medications Acetaminophen (Tylenol) 650 mg PO Q4H PRN PRN Reason: Pain MILD(1-3)/Fever >100.5/DAILEY Albuterol (Proventil) 2.5 mg IH Q4HRT PRN PRN Reason: Shortness Of Breath Aspirin (Halfprin Ec) 81 mg PO QDAY [facility] Last Admin: 11/28/17 13:49 Dose: 81 mg Atorvastatin Calcium (Lipitor) 20 mg PO QHS [facility] Last Admin: 11/28/17 23:03 Dose: 20 mg Bisacodyl (Dulcolax) 10 mg [place] QDAY PRN PRN Reason: Constipation unrelieved by MOM Clopidogrel Bisulfate (Plavix) 75 mg PO DAILY [facility] Last Admin: 11/28/17 11:30 Dose: 75 mg Dextrose (D50w (25gm) Syringe) 50 ml IV PRN PRN PRN Reason: Hypoglycemia Furosemide (Lasix) 60 mg IV BID@0600,1800 [facility] Last Admin: 11/28/17 18:00 Dose: 60 mg Heparin Sodium (Porcine) (Heparin) 5,000 unit SUB-Q Q8HR [facility] Last Admin: 11/28/17 23:02 Dose: 5,000 unit Hydralazine HCl (Apresoline) 100 mg PO TID [facility] Last Admin: 11/28/17 23:03 Dose: 100 mg Hydralazine HCl (Apresoline) 10 mg IV Q4HR PRN PRN Reason: BP >160/100 Last Admin: 11/27/17 15:22 Dose: 10 mg Insulin Aspart (Novolog) 0 units SUB-Q ACHS [facility] PRN Reason: Protocol Last Admin: 11/28/17 18:48 Dose: Not Given Labetalol HCl (Normodyne) 200 mg PO BID [facility] Last Admin: 11/28/17 23:03 Dose: 200 mg Nifedipine (Procardia Xl) 30 mg PO QDAY [facility] Last Admin: 11/28/17 11:30 Dose: 30 mg Ondansetron HCl (Zofran) 4 mg IV Q8H PRN PRN Reason: N/V unrelieved by Reglan Oxycodone/Acetaminophen (Percocet 5/325) 1 tab PO Q6H PRN PRN Reason: Pain, Moderate (4-6) Sodium Bicarbonate (Sodium Bicarbonate) 1,300 mg PO TID [facility] Last Admin: 11/28/17 23:03 Dose: 1,300 mg Zolpidem Tartrate (Ambien) 5 mg PO QHS PRN PRN Reason: Insomnia Review of Systems All systems: negative Exam - Constitutional Vitals: Temp Pulse Resp BP Pulse Ox 98.7 F 77 18 137/66 100 01/12/18 20:53 11/28/17 23:03 11/28/17 20:53 11/28/17 23:03 11/28/17 20:53 General appearance: Present: no acute distress - Neck Neck: Present: supple - Respiratory Respiratory effort: normal - Cardiovascular Rhythm: regular - Extremities Extremity abnormal: other (left fistula with palpable thrill. palpable radial thrill) - Abdominal General gastrointestinal: Present: soft, non-tender Results - Labs CBC & Chem 7: 11/28/17 04:00 11/28/17 04:00 Labs: Abnormal lab results 11/27/17 11/28/17 11/28/17 Range/Units 04:32 04:00 04:00 RBC 3.16 L (3.65-5.03) M/mm3 Hgb 7.8 L (11.8-15.2) gm/dl Hct 23.6 L (35.5-45.6) % MCV 75 L (84-94) fl MCH 25 L (28-32) pg RDW 18.3 H (13.2-15.2) % Lymph % (Auto) 7.7 L (13.4-35.0) % [place] % (Auto) 10.4 H (0.0-7.3) % Lymph # 0.6 L (1.2-5.4) K/mm3 Seg Neutrophils % 79.8 H (40.0-70.0) % Sodium 146 H (137-145) mmol/L Chloride 111.7 H (98-107) mmol/L Carbon Dioxide 16 L (22-30) mmol/L BUN 72 H (9-20) mg/dL Creatinine 4.5 H (0.8-1.5) mg/dL Calcium 7.7 L (8.4-10.2) mg/dL CK-MB (CK-2) (0.0-4.0) ng/mL Troponin T 0.143 H* D (0.00-0.029) ng/mL NT-Pro-B Natriuret Pep 69342 H (0-900) pg/mL 11/28/17 11/28/17 Range/Units 06:50 15:02 RBC (3.65-5.03) M/mm3 Hgb (11.8-15.2) gm/dl Hct (35.5-45.6) % MCV (84-94) fl MCH (28-32) pg RDW (13.2-15.2) % Lymph % (Auto) (13.4-35.0) % [place] % (Auto) (0.0-7.3) % Lymph # (1.2-5.4) K/mm3 Seg Neutrophils % (40.0-70.0) % Sodium (137-145) mmol/L Chloride (98-107) mmol/L Carbon Dioxide (22-30) mmol/L BUN (9-20) mg/dL Creatinine (0.8-1.5) mg/dL Calcium (8.4-10.2) mg/dL CK-MB (CK-2) 4.5 H (0.0-4.0) ng/mL Troponin T 0.148 H* 0.175 H* (0.00-0.029) ng/mL NT-Pro-B Natriuret Pep (0-900) pg/mL Assessment and Plan The patient is a 67 year old male with a history of chronic renal failure that has not yet progressed to hemodialysis. He has a left brachiobasilic fistula that has not yet been elevated. He will require revision with elevation prior to accessing the fistula and to avoid the placement of a catheter for dialysis. If the patient remains hospitalized will plan to perform on Friday, otherwise can be done as an outpatient.
[2017-11-29] MEDS: LASIX IV SCH (05:32)
[2017-11-29] MEDS: HEPARIN SUB-Q SCH ×2 (05:32→16:32)
[2017-11-29] MEDS: APRESOLINE PO SCH ×2 (08:38→16:31)
[2017-11-29] MEDS: SODIUM BICARBONATE PO SCH ×2 (08:38→16:32)
[2017-11-29] MEDS: NOVOLOG SUB-Q SCH ×2 (08:38→12:31)
[2017-11-29] MEDS: PROCARDIA XL PO SCH (11:29)
[2017-11-29] MEDS: NORMODYNE PO SCH (11:29)
[2017-11-29] MEDS: PLAVIX PO SCH (11:29)
[2017-11-29] MEDS: HALFPRIN EC PO SCH (11:29)
--- NOTE | 2017-11-29 12:22 | Progress Note ---
Assessment and Plan 67yo female: Acute HF with preserved EF CKD / volume overload Elevated troponin - ECG with NAF; pt denies chest pain; currently nonspecific in setting of anemia and CKD; cont to trend with CK-MB CAD s/p PCI of 1st obtuse and distal circ in 2011 Anemia of chronic disease HTN HLP DM H/o ICH Mild to moderate AR / Mild MR Tobacco use Plan: Agree with current cardiac regimen. Volume optimization per nephrology. Cont to trend Mtizi. Assessment and plan reviewed with pt and pt's at bedside. Subjective Date of service: 11/29/17 Principal diagnosis: chronic kidney disease with fluid overload Objective Vital Signs Temp Pulse Resp Resp BP BP Pulse Ox 11/29/17 08:30 96 11/29/17 08:29 20 11/29/17 07:58 98 11/29/17 06:25 98.1 F 82 20 143/66 100 11/29/17 05:58 83 11/29/17 00:53 98.6 F 83 20 135/60 100 11/28/17 23:03 77 137/66 11/28/17 20:53 98.7 F 83 18 147/70 100 11/28/17 18:48 97.9 F 77 20 137/66 99 11/28/17 18:00 84 11/28/17 12:23 98.6 F 89 18 149/71 100 - Physical Examination HEENT: Positive: PERRL, Normocephaly, Mucus Membranes Moist Neck: Positive: neck supple, trachea midline Neuro: Positive: Grossly Intact, Cranial Nerve 2-12 Intact Abdomen: Positive: Soft. Negative: Tender Skin: Positive: Clear. Negative: Rash Musculoskeletal: No Pain Extremities: Present: +1 Edema (BLE) - Labs and Meds Cardiac Enzymes 11/28/17 Range/Units 15:02 CK-MB (CK-2) 4.5 H (0.0-4.0) ng/mL - Imaging and Cardiology EKG: report reviewed, image reviewed Echo: report reviewed (01/25/2017 demonstrated EF 55-60%, biatrial mild dilation , moderate to severe LVH, RV mildly dilated, mild to moderate AR, mild MR, moderate pulmonary HTN, moderate pleural effusion, small pericardial effusion. ) Cardiac cath: report reviewed (PCI of 1st obtuse and distal circ in 2011) - EKG Sinus rhythms and dysrhythmias: sinus rhythm Chamber hypertrophy or enlargement: left ventricular hypertro
--- NOTE | 2017-11-29 12:56 | Progress Note ---
Assessment and Plan - Patient Problems (1) Acute on chronic diastolic heart failure Current Visit: No Status: Acute Plan to address problem: Patient improving with diuretics. (2) Pulmonary edema Current Visit: No Status: Acute Qualifiers: Chronicity: acute Qualified Code(s): J81.0 - Acute pulmonary edema Plan to address problem: Continue diuretics. Monitor intake and output. Hopefully continues to improve (3) Hypertensive chronic kidney disease with stage 1 through stage 4 chronic kidney disease, or unspecified chronic kidney disease Current Visit: No Status: Acute Plan to address problem: follow-up blood pressure (4) Hypertensive urgency Current Visit: No Status: Acute Plan to address problem: Antihypertensive medications as indicated (5) Physical deconditioning Current Visit: No Status: Acute Plan to address problem: PT OT evaluation and treatment (6) Shortness of breath Current Visit: No Status: Acute Plan to address problem: Secondary to the above (7) Hypertensive chronic kidney disease with stage 1 through stage 4 chronic kidney disease, or unspecified chronic kidney disease Current Visit: Yes Status: Acute Plan to address problem: Follow-up blood pressure on current medications (8) Type 2 diabetes mellitus with diabetic chronic kidney disease Current Visit: Yes Status: Acute Plan to address problem: Blood sugar management by primary attending Subjective Date of service: 11/29/17 Principal diagnosis: chronic kidney disease with fluid overload Interval history: Patient seen lying in bed at bedside. He has no complaints. Feeling better. Swelling is improving and shortness of breath also Objective - Exam Narrative Exam: Middle-aged -[place]or[place] male lying in bed in no acute distress HEENT: NCAT, pink oral mucous membrane Neck: Supple, no venous distention CVS: S1S2 RRR with no murmur, rub or gallop Chest: Clear to auscultation Abdomen: Protuberant, soft, nontender, no organomegaly, bowel sounds are present Extremities: edema resolving, no clubbing Skin: Warm and dry, no rash, Neuro: Awake, alert no focal deficits - Vital Signs Vital signs: Vital Signs - 12hr 11/29/17 11/29/17 11/29/17 05:58 06:25 07:58 Temperature 98.1 F Pulse Rate 83 82 Respiratory 20 Rate Respiratory Rate [no pain] Blood Pressure 143/66 O2 Sat by Pulse 100 98 Oximetry 11/29/17 11/29/17 08:29 08:30 Temperature Pulse Rate Respiratory Rate Respiratory 20 Rate [no pain] Blood Pressure O2 Sat by Pulse 96 Oximetry - Lab 11/28/17 04:00 11/28/17 04:00 Most recent lab results Calcium 7.7 mg/dL (8.4-10.2) L 11/28/17 04:00
[2017-11-29 15:03] VITALS: BP 157/70
--- NOTE | 2017-11-29 16:13 | Discharge Summary ---
Providers - Providers Date of Admission: 11/27/17 07:01 Attending physician: MIKAYLA BARRETT MD 11/27/17 11:55 Consult to Physician [CONS] Routine Consulting Provider: SONG LONDON Reason For Exam: chf Place consult to:: [facility] Notified:: OFFICE Was contact made?: Yes If yes, spoke with:: CHELY Time called:: 16:53 Consult to Physician [CONS] Routine Consulting Provider: GEGE SHANKS Reason For Exam: gordon Place consult to:: [facility] Notified:: OFFICE Phone number called:: [phone] Was contact made?: Yes Time called:: 16:50 11/28/17 08:22 Consult to Physician [CONS] Routine Consulting Provider: CARRI CABA Reason For Exam: LUe AVF needs transposition soon Place consult to:: [facility] Notified:: y Was contact made?: Yes Primary care physician: ALIRIO LIMA Hospitalization Condition: Stable Hospital course: 67-year-old man with past medical history of hypertension diabetes CHF, CAD, hyperlipidemia, smoker who presents to the hospital with anasarca. Patient has worsening chronic kidney disease and was planned for hemodialysis but has not started it yet, and his diuretics were recently discontinued. He presents to the hospital with anasarca. He received nephrology consultation, was admitted to medicine service. He received IV diuretics. His blood pressure medication optimized. He also received cardiology consultation who stated he had preserved EF and did not need any further workup on hospital. The patient has advanced chronic kidney disease and he is approaching end-stage renal disease. He has an AV graft that requires elevation and revision. He was offered the elective surgery, consider he'll prefer to do as an outpatient. He clinically improved on some scaly discharge home, he'll follow up with nephrology and vascular surgery as an outpatient. Discharge diagnoses Acute respiratory failure with hypoxia Acute on chronic diastolic Congestive heart failure Diabetes mellitus Hypertensive urgency Elevated troponin due to chronic kidney disease Chronic kidney disease stage 4-5 Anemia of chronic disease Disposition: -01 TO HOME OR SELFCARE Time spent for discharge: 33 minutes Core Measure Documentation - Palliative Care Palliative Care/ Comfort Measures: Not Applicable - Core Measures Any of the following diagnoses?: heart failure - Heart Failure Discharge Requirements GASPER/ARB for LVSD if EF <40%: Not Applicable Beta nimo at discharge: No Reason for no beta nimo on DC: Bradycardia Exam - Constitutional Vitals: Temp Pulse Resp BP Pulse Ox 98.5 F 80 20 157/70 96 11/29/17 08:14 11/29/17 13:00 11/29/17 08:29 11/29/17 08:14 11/29/17 08:30 General appearance: Present: no acute distress, well-nourished - EENT Eyes: Present: PERRL ENT: hearing intact, clear oral mucosa - Neck Neck: Present: supple, normal ROM - Respiratory Respiratory effort: normal Respiratory: bilateral: CTA - Cardiovascular Heart Sounds: Present: S1 & S2. Absent: rub, click - Extremities Extremities: pulses symmetrical, No edema Peripheral Pulses: within normal limits - Abdominal General gastrointestinal: Present: soft, non-tender, non-distended, normal bowel sounds Male genitourinary: Present: normal - Integumentary Integumentary: Present: clear, warm, dry - Musculoskeletal Musculoskeletal: gait normal, strength equal bilaterally - Psychiatric Psychiatric: appropriate mood/affect, intact judgment & insight - Neurologic Neurologic: CNII-XII intact, moves all extremities Plan Follow up with: HI CORDON MD [Staff Physician] - 7 Days CARRI CABA MD [Staff Physician] - 7 Days ALIRIO LIMA MD [Primary Care Provider] - 7 Days Prescriptions: AtorvaSTATin [Lipitor] 20 mg PO QHS #30 tablet Zolpidem [Ambien] 5 mg PO QHS PRN #14 tablet PRN Reason: Insomnia ALBUTEROL NEB's [Proventil 0.083% NEBS] 2.5 mg IH Q4HRT PRN #120 nebu PRN Reason: Shortness Of Breath Aspirin EC [Aspirin Enteric Coated TAB] 81 mg PO QDAY #30 tablet Clopidogrel [Plavix] 75 mg PO DAILY #30 tablet Furosemide [Lasix TAB] 80 mg PO 0600,1800 #120 tablet hydrALAZINE [Apresoline TAB] 100 mg PO TID #90 tab Labetalol [Normodyne TAB] 200 mg PO BID #60 tablet NIFEdipine XL [Procardia Xl] 30 mg PO QDAY #30 tablet oxyCODONE /ACETAMINOPHEN [Percocet 5/325 mg] 1 tab PO Q6H PRN #14 tablet PRN Reason: Pain, Moderate (4-6)
[2017-11-30] MEDS ORDERED: LASIX PO SCH (06:00)
== END 2017-11-29 17:30 | disposition home or self-care (01) | DRG 291 ==
LOC: ED 21:12 → 4A 11-27 07:01
PROVIDERS: ADMIT Internal Medicine; ATTEND Internal Medicine
PROC: 5A09357 Assistance with Respiratory Ventilation, Less than 24 Consecutive Hours, Continuous Positive Airway Pressure (ICD-10-PCS; principal; 2017-11-27)
PROC: 3E0234Z Introduction of Serum, Toxoid and Vaccine into Muscle, Percutaneous Approach (ICD-10-PCS; 2017-11-27)
DX: I13.2 Hypertensive heart and chronic kidney disease with heart failure and with stage 5 chronic kidney disease, or end stage renal disease (principal); J96.01 Acute respiratory failure with hypoxia; I50.33 Acute on chronic diastolic (congestive) heart failure; N18.5 Chronic kidney disease, stage 5; I16.0 Hypertensive urgency; E11.22 Type 2 diabetes mellitus with diabetic chronic kidney disease; I25.10 Atherosclerotic heart disease of native coronary artery without angina pectoris; E78.5 Hyperlipidemia, unspecified; F17.200 Nicotine dependence, unspecified, uncomplicated; G43.909 Migraine, unspecified, not intractable, without status migrainosus; D63.1 Anemia in chronic kidney disease; J44.9 Chronic obstructive pulmonary disease, unspecified; I25.2 Old myocardial infarction; Z95.5 Presence of coronary angioplasty implant and graft; Z82.49 Family history of ischemic heart disease and other diseases of the circulatory system; Z79.82 Long term (current) use of aspirin; Z79.4 Long term (current) use of insulin; Z79.2 Long term (current) use of antibiotics; Z90.89 Acquired absence of other organs; Z83.3 Family history of diabetes mellitus; Z23 Encounter for immunization
CPT/HCPCS: 36415; 71046; 80048; 80061; 82550; 82553; 82962; 83880; 84484; 85025; 85610; 85730; 90686; 93005; 93010; 94760; 96374; 96375; A9270-GY; J0360; J1644; J1940

== ENCOUNTER 2018-03-16 08:07 | Day surgery (SDC) | payer MEDICARE ==
[~2018-03-16 08:07] MED LIST changes: -DIPRIVAN 10 MG/ML IV ONE; -HEPARIN 10,000 UNITS/10 ML ONE; -MARCAINE 0.5% INFILTRATI ONE; -NACL 0.9% 500 ML 500 ML ONE; -NACL P/F VIAL (10 ML) 0 ML ONE; -NITROGLYCERIN SYRINGE 0 ML ONE; +PEPCID IV NR; -PROTAMINE SULFATE ONE; -RIFADIN ONE; -SUBLIMAZE ONE; +VERSED IV NR; -XYLOCAINE MPF 2% ONE
[2018-03-16] MEDS ORDERED: XYLOCAINE MPF 2% ONE (10:05)
[2018-03-16] MEDS ORDERED: DIPRIVAN 10 MG/ML IV ONE ×2 (10:06→13:15)
[2018-03-16] MEDS ORDERED: SUBLIMAZE ONE (10:06)
[2018-03-16 10:33] LABS: Hematocrit 34.6 % (35.5-45.6); Hemoglobin 11.5 gm/dl (11.8-15.2); Mean Corpuscular HGB Conc 33 % (32-34); Mean Corpuscular Hemoglobin 27 pg (28-32); Mean Corpuscular Volume 82 fl (84-94); Platelet Count 199 K/mm3 (140-440); Red Blood Count 4.23 M/mm3 (3.65-5.03); Red Cell Distribution Width 19.4 % (13.2-15.2)
[2018-03-16 10:43] LABS: Calcium 8.9 mg/dL (8.4-10.2)
[2018-03-16 11:23] LABS: Basophils % (Manual) 0 % (0.0-1.8); Total Cells Counted 100
[2018-03-16 11:26] LABS: Anisocytosis 1+; Poikilocytosis 1+; Target Cells 1+
[2018-03-16 11:27] LABS: Platelet Estimate Cons
[2018-03-16] MEDS ORDERED: MARCAINE 0.5% 30 ML INFILTRATI ONE (12:08)
[2018-03-16] MEDS ORDERED: HEPARIN 10,000 UNITS/10 ML ONE (12:09)
[2018-03-16] MEDS ORDERED: NACL 0.9% 250ML 250 ML ONE (12:09)
[2018-03-16] MEDS ORDERED: NACL 0.9% IR ONE (12:11)
[2018-03-16] MEDS ORDERED: NACL 0.9% 500 ML IRRIGATION ONE (12:11)
[2018-03-16] MEDS ORDERED: HEPARIN 10,000 UNITS/10 ML IV ONE (12:11)
[2018-03-16] MEDS ORDERED: MARCAINE 0.5% INFILTRATI ONE (12:11)
[2018-03-16] MEDS ORDERED: ePHEDrine SULFATE ONE (13:07)
--- NOTE | 2018-03-16 14:38 | Short Stay Summary ---
Short Stay Documentation Date of service: 03/16/18 Narrative H&P: See H&P - Allergies and Medications Current Medications: Allergies No Known Allergies Allergy (Verified 03/11/18 11:20) Home Medications Medication Instructions Recorded Confirmed Last Taken Type ALBUTEROL Inhaler [ProAir HFA 2 puff IH QID PRN #1 unit 01/01/18 03/11/18 Rx Inhaler] AtorvaSTATin [Lipitor] 20 mg PO QHS #30 tablet 01/01/18 03/11/18 03/15/18 Rx Labetalol [Normodyne TAB] 200 mg PO BID #60 tablet 01/01/18 03/11/18 03/16/18 07 :10 Rx NIFEdipine XL [Procardia Xl] 30 mg PO QDAY #30 tablet 01/01/18 03/11/18 07:10 Rx Pantoprazole [Protonix TAB] 40 mg PO QDAY #30 tablet 01/01/18 03/11/18 03/15/18 Rx Zolpidem [Ambien] 5 mg PO QHS PRN #14 tablet 01/01/18 03/11/18 03/15/18 Rx oxyCODONE /ACETAMINOPHEN [Percocet 1 tab PO Q6H PRN #20 tablet 01/01/1803/15/18 Rx 5/325 mg] ALBUTEROL NEB's [Proventil 0.083% 2.5 mg IH PRN PRN 03/11/18 03/11/18 03/15/18 History NEBS] Sennosides/Docusate [Senokot S] 1 tab PO DAILY 03/11/18 03/11/18 03/15/18 History Vit B Complx C/Folic Acid/Zinc 0.8 mg PO DAILY 03/11/18 03/11/18 03/15/18 History [Dialyvite 800-Zinc 15 Tab] amLODIPine [Norvasc] 5 mg PO DAILY 03/11/18 03/11/18 03/15/18 History hydrALAZINE [Apresoline TAB] 100 mg PO DAILY 03/11/18 03/11/18 03/16/18 07:10 History Active Medications Famotidine (Pepcid) 20 mg IV PREOP NR Stop: 03/16/18 23:59 Last Admin: 03/16/18 10:50 Dose: 20 mg Cefazolin Sodium (Ancef/Sterile Water 2 Gm/20 Ml) 2 gm in 20 mls @ 80 mls/hr IV PREOP NR; Protocol Stop: 03/16/18 23:59 Sodium Chloride (Nacl 0.9% 1000 Ml) 1,000 mls @ 42 mls/hr IV DIRECT THONY Last Admin: 03/16/18 10:45 Dose: 42 mls/hr Midazolam HCl (Versed) 2 mg IV PREOP NR Stop: 03/16/18 23:59 Last Admin: 03/16/18 10:45 Dose: 2 mg - Brief post op/procedure progress note Date of procedure: 03/16/18 Pre-op diagnosis: Complications of Dialysis Access Post-op diagnosis: same Procedure: Revision with Elevation of Left Brachial Basilic Arteriovenous Fistula Anesthesia: SHAMA Surgeon: CARRI CABA Estimated blood loss: minimal Pathology: none Condition: stable - Disposition Condition at discharge: Good Disposition: DC-01 TO HOME OR SELFCARE Short Stay Discharge Plan Activity: other (no heavy lifting with left arm) Wound: open to air, keep clean and dry, other (okay to wash the wound with soap and water but do not soak in water) Follow up with: CARRI CABA MD [Staff Physician] - 14 Days Prescriptions: HYDROcodone/APAP 7.5-325 [[place] 7.5/325] 1 each PO Q6HR PRN #60 tablet PRN Reason: Pain
--- NOTE | 2018-03-16 14:59 | Operative Report ---
Operative Report Operative Report: Date of procedure: 03/16/2018 Pre-operative diagnosis: Complications of Dialysis Access Post-operative diagnosis: Same Procedure(s): Revision with Elevation of Left Brachiobasilic AV Fistula Surgeon: Anival Lagunas MD [employer]ry Go Round Operator: None Anesthesia: General Endotracheal Anesthesia EBL: Minimal Counts: Correct Complications: None Condition: Stable Findings: Successful elevation of left brachiobasilic fistula with excellent thrill. Specimen: None Indication: The patient is a 67-year-old male with a history of end-stage renal disease who a creation of a left brachiobasilic arteriovenous fistula that is in need of elevation. He was given the risk, benefits, and alternative procedures and consented to the procedure. Description of Procedure: The patient was brought to the operating room and laid in supine position after general endotracheal anesthesia was achieved her left arm was prepped and draped in normal sterile fashion. A longitudinal incision was then created on the medial aspect of the arm centered over the fistula extending from the axillary crease to the antecubital crease. Sharp dissection was used to continue the dissection down to the fistula. The fistula was then dissected circumferentially and all side branches were suture ligated and divided. A Ashley-Wick tunneler was then used to tunnel from the distal part of the incision towards the proximal portion of the incision and a lateral and slightly curved direction. The fistula was then marked on the anterior surface , the inflow was controlled with a DeBakey, clamp and the outflow was controlled with bulldog clamps. This vessel was then divided near the arterial inflow and secured to the Ashley-Wick tunneler with 2-0 silk and then pulled retrograde through the tunnel. I flushed the venous outflow with heparinized saline to assure that there was no evidence of twist or kinks. I then performed an end-to-end anastomosis between the proximal and distal ends using two 6-0 Prolenes in running fashion. Prior to completing the anastomosis I flushed the arterial inflow of the fistula to ensure there was no clot or debris. I then completed the anastomosis and removed all clamps allowing flow through the fistula which had an excellent thrill. I achieved hemostasis in the wound with a combination of direct pressure and electrocautery. I then anesthetized the wound with Exparel and closed the wound in 2 layers using a 3- 0 Vicryl in running fashion in the deep dermal layer and a 4-0 Monocryl in running fashion in the subcuticular. I then dressed the wound with Surgicel. The patient tolerated the procedure well, all sponge needle and instrument counts were correct, the patient was taken to the recovery area in stable condition.
[2018-03-16 16:23] VITALS: BP 132/63
== END 2018-03-16 16:27 | disposition home or self-care (01) ==
LOC: OR 08:07
PROVIDERS: ATTEND Surgery Vascular Surgery
DX: T82.898A Other specified complication of vascular prosthetic devices, implants and grafts, initial encounter (principal); I12.0 Hypertensive chronic kidney disease with stage 5 chronic kidney disease or end stage renal disease; E11.22 Type 2 diabetes mellitus with diabetic chronic kidney disease; N18.6 End stage renal disease; I25.10 Atherosclerotic heart disease of native coronary artery without angina pectoris; E78.5 Hyperlipidemia, unspecified; Y83.2 Surgical operation with anastomosis, bypass or graft as the cause of abnormal reaction of the patient, or of later complication, without mention of misadventure at the time of the procedure; Z79.899 Other long term (current) drug therapy; Z86.73 Personal history of transient ischemic attack (TIA), and cerebral infarction without residual deficits
CPT/HCPCS: 36415; 36832; 80048; 82962; 85007; 85025; J0690; J1644; J2250; J2704; J3010; J7030; J7040; J7050

== ENCOUNTER 2019-09-22 21:46 | Inpatient (IN) | payer MEDICARE ==
--- NOTE | 2019-09-22 22:24 | Emergency Department Report ---
ED Shortness of Breath HPI - General Chief Complaint: Dyspnea/Respdistress Stated Complaint: RORY Time Seen by Provider: 09/22/19 22:05 Source: patient, family, EMS Mode of arrival: Stretcher Limitations: No Limitations - History of Present Illness Initial Comments: Patient is a 69-year-old -[place] male who is presenting with her story distress. Patient was noted that 2 hours prior to his arrival to have acute onset of shortness of breath. Patient's called paramedics. Patient's O2 sat was in 70s on anodizer arrival. Patient was started on BiPAP and given one sublingual nitroglycerin as well as 40 Lasix. Paramedics state patient had was sounded like pulmonary edema on physical exam. Patient has a history of hypertension end-stage renal disease on dialysis, coronary disease with 2 stents with a history of OK. Patient is denying chest pain. Patient states he missed his dialysis on Friday and Friday. Patient is denying fevers chills nausea vomiting diarrhea or chest pain. - Related Data Home Medications Medication Instructions Recorded Confirmed Last Taken hydrALAZINE [Apresoline TAB] 100 mg PO TID 03/11/18 09/30/18 09/30/18 Ergocalciferol (Vitamin D2) 50,000 unit PO QWEEK 09/30/18 09/30/18 Unknown [Drisdol] Ferric Citrate (Nf) [Auryxia] 420 mg PO TIDWM 09/30/18 09/30/18 09/30/18 Vit B Comp No.3/Folic/C/Biotin 1 each PO DAILY 09/30/18 09/30/18 09/30/18 [Myra-Cirilo Rx Tablet] Previous Rx's Medication Instructions Recorded Last Taken Type Labetalol [Labetalol 200mg TAB] 200 mg PO BID #60 tablet 01/01/18 09/30/18 Rx AtorvaSTATin [Lipitor] 20 mg PO QHS tablet 10/03/18 Unknown Rx Nicotine [Habitrol] 21 mg TD DAILY #30 patch 10/03/18 Unknown Rx Pantoprazole [Protonix TAB] 40 mg PO QDAY tablet 10/03/18 Unknown Rx Zolpidem [Ambien] 5 mg PO QHS PRN tablet 10/03/18 Unknown Rx amLODIPine 5 mg PO DAILY tablet 10/03/18 Unknown Rx Allergies Allergy/AdvReac Type Severity Reaction Status Date / Time No Known Allergies Allergy Verified 03/11/18 11:20 ED Review of Systems ROS: Stated complaint: RORY Other details as noted in HPI Comment: All other systems reviewed and negative ED Past Medical Hx - Past Medical History Previous Medical History?: Yes Hx Hypertension: Yes (since 1997) Hx CVA: Yes (R. side weakness) Hx Heart Attack/AMI: Yes ("maybe in 2016") Hx Congestive Heart Failure: Yes Hx Diabetes: Yes Hx Renal Disease: Yes (Dialysis T, Th, Fri) Hx Headaches / Migraines: Yes - Surgical History Past Surgical History?: Yes Additional Surgical History: tonsillectomy, L. arm fistula - Social History Smoking Status: Never Smoker Substance Use Type: None - Medications Home Medications: Home Medications Medication Instructions Recorded Confirmed Last Taken Type Labetalol [Labetalol 200mg TAB] 200 mg PO BID #60 tablet 01/01/18 09/30/18 09/30/18 Rx hydrALAZINE [Apresoline TAB] 100 mg PO TID 03/11/18 09/30/18 09/30/18 History Ergocalciferol (Vitamin D2) 50,000 unit PO QWEEK 09/30/18 09/30/18 Unknown History [Drisdol] Ferric Citrate (Nf) [Auryxia] 420 mg PO TIDWM 09/30/18 09/30/18 09/30/18 History Vit B Comp No.3/Folic/C/Biotin 1 each PO DAILY 09/30/18 09/30/18 09/30/18 History [Myra-Cirilo Rx Tablet] AtorvaSTATin [Lipitor] 20 mg PO QHS tablet 10/03/18 Unknown Rx Nicotine [Habitrol] 21 mg TD DAILY #30 patch 10/03/18 Unknown Rx Pantoprazole [Protonix TAB] 40 mg PO QDAY tablet 10/03/18 Unknown Rx Zolpidem [Ambien] 5 mg PO QHS PRN tablet 10/03/18 Unknown Rx amLODIPine 5 mg PO DAILY tablet 10/03/18 Unknown Rx ED Physical Exam - General Limitations: No Limitations General appearance: alert, in no apparent distress - Head Head exam: Present: atraumatic, normocephalic - Eye Eye exam: Present: normal appearance - ENT ENT exam: Present: mucous membranes moist - Neck Neck exam: Present: normal inspection - Respiratory Respiratory exam: Present: respiratory distress, rales, other (tachypnea). Absent: normal lung sounds bilaterally - Cardiovascular Cardiovascular Exam: Present: regular rate, normal rhythm, normal heart sounds. Absent: systolic murmur, diastolic murmur, rubs, gallop - GI/Abdominal GI/Abdominal exam: Present: soft, normal bowel sounds. Absent: distended, tenderness, guarding, rebound - Rectal Rectal exam: Present: deferred - Extremities Exam Extremities exam: Present: normal inspection - Back Exam Back exam: Present: normal inspection - Neurological Exam Neurological exam: Present: alert, oriented X3 - Psychiatric Psychiatric exam: Present: normal affect, normal mood - Skin Skin exam: Present: warm, dry, intact, normal color. Absent: rash ED Course Vital Signs 09/22/19 09/22/19 09/22/19 21:54 21:55 22:00 Pulse Rate 83 85 83 Respiratory 30 H 29 H 26 H Rate Blood Pressure 177/88 184/87 O2 Sat by Pulse 100 100 100 Oximetry 09/22/19 09/22/19 09/22/19 22:15 22:30 22:43 Pulse Rate 81 80 Respiratory 22 18 18 Rate Blood Pressure 188/84 191/89 O2 Sat by Pulse 100 100 Oximetry 09/22/19 09/22/19 09/22/19 22:45 23:00 23:15 Pulse Rate 82 83 81 Respiratory 17 20 13 Rate Blood Pressure 196/96 195/95 197/94 O2 Sat by Pulse 100 100 100 Oximetry ED Medical Decision Making - Lab Data Result diagrams: 09/22/19 22:22 09/22/19 22:22 - EKG Data -: EKG Interpreted by Nh EKG shows normal: sinus rhythm, axis, intervals (prolonged), QRS complexes, ST-T waves Rate: normal - EKG Data Interpretation: normal EKG - Radiology Data CHEST 1 VIEW 09/22/2019 10:19 PM INDICATION / CLINICAL INFORMATION: resp distress. COMPARISON: 09/30/18 FINDINGS: SUPPORT DEVICES: None. HEART / MEDIASTINUM: Heart is mildly enlarged but stable. LUNGS / PLEURA: Mild bibasilar interstitial edema with small bilateral pleural effusions. No pneumothorax. ADDITIONAL FINDINGS: No significant additional findings. IMPRESSION: 1. Mild pulmonary edema and small bilateral pleural effusions. Signer Name: Jonas Andre MD Signed: 09/22/2019 10:47 PM Workstation Name: [email or web address] - Medical Decision Making She's breathing improved dramatically once he was placed on BiPAP according to paramedics. On arrival the patient is calm oh with O2 sat of 100%. Chest x-ray does confirm pulmonary edema. Despite be more comments patient's blood pre ssure has trended upward at the time of admission to be started on nitro drip. Dr. Gardner with nephrology has been consulted will place orders for dialysis. Dr. Castillo will admit the patient to the hospitalist service. Critical Care Time: Yes (30) Critical care attestation.: If time is entered above; I have spent that time in minutes in the direct care of this critically ill patient, excluding procedure time. ED Disposition Clinical Impression: Acute respiratory distress, Hypertensive emergency, Pulmonary edema, ESRD needing dialysis Disposition: OP ADMIT IP TO THIS HOSP Is pt being admited?: Yes Does the pt Need Aspirin: No Condition: Stable Instructions: Hypertension (ED), Pulmonary Edema (ED) Referrals: PRIMARY CAREMD [Primary Care Provider] - 3-5 Days Time of Disposition: 23:40
[2019-09-22 22:43] LABS: Hematocrit 28.8 % (35.5-45.6); Hemoglobin 10.1 gm/dl (11.8-15.2); Mean Corpuscular HGB Conc 35 % (32-34); Mean Corpuscular Volume 88 fl (84-94); Platelet Count 162 K/mm3 (140-440); Red Blood Count 3.28 M/mm3 (3.65-5.03); Red Cell Distribution Width 14.5 % (13.2-15.2)
[2019-09-22 22:51] LABS: INR 1.01 (0.87-1.13); Partial Thromboplastin Time 32.4 Sec. (24.2-36.6)
--- NOTE | 2019-09-22 22:51 | XRay Report ---
CHEST 1 VIEW 09/22/2019 10:19 PM INDICATION / CLINICAL INFORMATION: resp distress. COMPARISON: 09/30/18 FINDINGS: SUPPORT DEVICES: None. HEART / MEDIASTINUM: Heart is mildly enlarged but stable. LUNGS / PLEURA: Mild bibasilar interstitial edema with small bilateral pleural effusions. No pneumoth orax. ADDITIONAL FINDINGS: No significant additional findings. IMPRESSION: 1. Mild pulmonary edema and small bilateral pleural effusions. Signer Name: Jonas Andre MD Signed: 09/22/2019 10:47 PM Workstation Name: [id number]
[2019-09-22 23:24] LABS: Albumin 3.9 g/dL (3.9-5)
[2019-09-22] MEDS ORDERED: NITROGLYCERIN DRIP 50 MG/250 ML BOTTLE IV SCH (23:45)
[2019-09-23 00:09] LABS: Calcium 9.4 mg/dL (8.4-10.2)
[2019-09-23] MEDS ORDERED: ONDANSETRON 4 MG/2 ML INJ IV PRN (00:27)
[2019-09-23] MEDS ORDERED: ALBUTEROL 2.5 MG/3 ML NEBU IH PRN (00:27)
[2019-09-23] MEDS ORDERED: DEXTROSE 50% IN WATER (25GM) 50 ML SYRINGE IV PRN (00:27)
[2019-09-23] MEDS ORDERED: ACETAMINOPHEN 325 MG TAB PO PRN (00:27)
--- NOTE | 2019-09-23 00:37 | History and Physical Report ---
<KLAUDIA DONAHUE - Last Filed: 09/23/19 01:12> History of Present Illness Date of examination: 09/22/19 Date of admission: 09/22/19 23:54 Chief complaint: SOB, hypoxia History of present illness: 69-year-old -Citizen Of [place] male who is an ongoing smoker with history of diastolic heart failure, NJ, CVA with right-sided residual weakness, hypertension, diabetes, osteoarthritis, ESRD on HD (/) and COPD presents to [facility] ED via EMS with complaints of shortness of breath and hypoxemia. Patient's is present at bedside and has assisted with providing history. Of note missed Friday's ( 09/21/19) dialysis session, because he was not feeling well. His said he has a few episodes of diarrhea and was afraid to leave the house. Per patient's , he was sitting down watching TV approximately 2 hours before presenting to ED when he suddenly became short of breath and displayed difficulty in breathing. immediately called EMS. Upon EMS arrival patient was found to be hypoxic with saturation in low 70s on room air. EMS administered IV Lasix 40 mg, 2 g of magnesium, and nitroglycerin 1. He was placed on CPAP transported to our facility. On presentation pt displayed short shallow breathing. He was placed on BiPaP with saturations >96%. Past History Past Medical History: acute NJ, COPD, diabetes, ESRD (on HD /), heart failure (diastolic), hypertension, migraines, stroke (with right-sided residual deficits), other (osteoarthritis,) Past Surgical History: tonsillectomy, Other (left upper arm AV fistula) Social history: , smoking Family history: hypertension Medications and Allergies Allergies Allergy/AdvReac Type Severity Reaction Status Date / Time No Known Allergies Allergy Verified 03/11/18 11:20 Home Medications Medication Instructions Recorded Confirmed Last Taken Type Labetalol [Labetalol 200mg TAB] 200 mg PO BID #60 tablet 01/01/18 09/23/19 09/22/19 Rx 200 hydrALAZINE [Apresoline TAB] 100 mg PO TID 03/11/18 09/23/19 1 Day Ago History ~09/22/19 100 Ergocalciferol (Vitamin D2) 50,000 unit PO QWEEK 09/30/18 09/23/19 09/19/19 His tory [Drisdol] 50,000 Ferric Citrate (Nf) [Auryxia] 420 mg PO TIDWM 09/30/18 09/23/19 1 Day Ago History ~09/22/19 420 Vit B Comp No.3/Folic/C/Biotin 1 each PO DAILY 09/30/18 09/23/19 1 Day Ago History [Myra-Cirilo Rx Tablet] ~09/22/19 1 AtorvaSTATin [Lipitor] 20 mg PO QHS tablet 10/03/18 09/23/19 Unknown Rx Nicotine [Habitrol] 21 mg TD DAILY #30 patch 10/03/18 09/23/19 Unknown Rx Pantoprazole [Protonix TAB] 40 mg PO QDAY tablet 10/03/18 09/23/19 Unknown Rx Zolpidem [Ambien] 5 mg PO QHS PRN tablet 10/03/18 09/23/19 1 Day Ago Rx ~09/22/19 5 amLODIPine 5 mg PO DAILY tablet 10/03/18 09/23/19 1 Day Ago Rx ~09/22/19 5 Active Meds: Active Medications Acetaminophen (Tylenol) 650 mg PO Q4H PRN PRN Reason: Pain MILD(1-3)/Fever >100.5/DAILEY Nitroglycerin/Dextrose (Tridil Drip 50mg/250ml) 50 mg in 250 mls @ 3 mls/hr IV TITR THONY; Protocol Last Admin: 09/22/19 23:57 Dose: 10 mcg/min, 3 mls/hr Documented by: Ondansetron HCl (Zofran) 4 mg IV Q6H PRN PRN Reason: Nausea And Vomiting Sodium Chloride (Sodium Chloride Flush Syringe 10 Ml) 10 ml IV BID THONY Sodium Chloride (Sodium Chloride Flush Syringe 10 Ml) 10 ml IV PRN PRN PRN Reason: LINE FLUSH Review of Systems All systems: negative Cardiovascular: shortness of breath, dyspnea on exertion, paroxysmal nocturnal dyspnea, high blood pressure Respiratory: shortness of breath, dyspnea on exertion Exam - Physical Exam Narrative exam: General appearance: Present: No acute distress, alert and oriented, older adult male - EENT Eyes: Present: PERRL, EOM intact ENT: hearing intact - Neck Neck: Present: supple, normal ROM - Respiratory Respiratory effort: Labored on BiPaP Respiratory: bilateral: faint bibasilar crackles , and prolonged expiratory phas e - Cardiovascular Heart rate:82 (bpm) Rhythm:SR Heart Sounds: Present: S1, S2. - Extremities Extremities: no ischemia, pulses intact, BLE trace edema - Peripheral Assessment Peripheral Pulses: within normal limits - Abdominal General gastrointestinal: soft, non-tender, normal bowel sounds, - Integumentary Integumentary: Present: warm, dry - Musculoskeletal Musculoskeletal: generalized weakness, able to move all extremities -Neurological Neurological: CN II-XII grossly intact - Psychiatric Psychiatric: cooperative - Constitutional Vitals: Temp Pulse Resp BP Pulse Ox 81 16 183/92 100 09/23/19 00:00 09/23/19 00:00 09/23/19 00:00 09/23/19 00:00 Results - Labs CBC & Chem 7: 09/22/19 22:22 09/22/19 22:22 Labs: Laboratory Last Values WBC 9.5 K/mm3 (4.5-11.0) 09/22/19 22:22 RBC 3.28 M/mm3 (3.65-5.03) L 09/22/19 22:22 Hgb 10.1 gm/dl (11.8-15.2) L 09/22/19 22:22 Hct 28.8 % (35.5-45.6) L 09/22/19 22:22 MCV 88 fl (84-94) 09/22/19 22:22 MCH 31 pg (28-32) 09/22/19 22:22 MCHC 35 % (32-34) H 09/22/19 22:22 RDW 14.5 % (13.2-15.2) 09/22/19 22:22 Plt Count 162 K/mm3 (140-440) 09/22/19 22:22 PT 13.2 Sec. (12.2-14.9) 09/22/19 22:22 INR 1.01 (0.87-1.13) 09/22/19 22:22 APTT 32.4 Sec. (24.2-36.6) 09/22/19 22:22 Sodium 133 mmol/L (137-145) L 09/22/19 22:22 Potassium 4.3 mmol/L (3.6-5.0) 09/22/19 22:22 Chloride 93.4 mmol/L (98-107) L 09/22/19 22:22 Carbon Dioxide 20 mmol/L (22-30) L 09/22/19 22:22 Anion Gap 24 mmol/L 09/22/19 22:22 BUN 68 mg/dL (9-20) H 09/22/19 22:22 Creatinine 9.9 mg/dL (0.8-1.5) H 09/22/19 22:22 Estimated GFR 6 ml/min 09/22/19 22:22 BUN/Creatinine Ratio 7 % 09/22/19 22:22 Glucose 193 mg/dL (75-100) H 09/22/19 22:22 Calcium 9.4 mg/dL (8.4-10.2) 09/22/19 22:22 Total Bilirubin 0.50 mg/dL (0.1-1.2) 09/22/19 22:22 AST 22 units/L (5-40) 09/22/19 22:22 ALT 17 units/L (7-56) 09/22/19 22:22 Alkaline Phosphatase 68 units/L (35-129) 09/22/19 22:22 Troponin T 0.098 ng/mL (0.00-0.029) H 09/22/19 22:22 NT-Pro-B Natriuret Pep 59750 pg/mL (0-900) H 09/22/19 22:22 Total Protein 7.1 g/dL (6.3-8.2) 09/22/19 22:22 Albumin 3.9 g/dL (3.9-5) 09/22/19 22:22 Albumin/Globulin Ratio 1.2 % 09/22/19 22:22 - Imaging and Cardiology Imaging and Cardiology: CXR: FINDINGS: SUPPORT DEVICES: None. HEART / MEDIASTINUM: Heart is mildly enlarged but stable. LUNGS / PLEURA: Mild bibasilar interstitial edema with small bilateral pleural effusions. No pneumothorax. ADDITIONAL FINDINGS: No significant additional findings. IMPRESSION: 1. Mild pulmonary edema and small bilateral pleural effusions. Assessment and Plan Assessment and plan: 69-year-old -Citizen Of [place] male who is an ongoing smoker with history of diastolic heart failure, [place], CVA with right-sided residual weakness, hypertension, diabetes, osteoarthritis, ESRD on HD (//S) and COPD presents to [facility] ED via EMS with complaints of shortness of breath and hypoxemia. At the time of my examination, pt is sitting up in stretcher on BiPaP with saturation of 100%. He is able to answer yes/no questions and give short worded responses. His remains present at bedside. Acute hypoxic respiratory failure -No Baseline home oxygen requirements -Saturation in low 70's on RA per EMS report -Currently on BiPaP -Monitor saturations -Continue supplemental oxygen wean as tolerated Acute exacerbation [place] [address] -Troponin slightly elevated at 0.098, likely due to ESRD -CXR shows: Mild pulmonary edema and small bilateral pleural effusions -BLE trace edema -Strict I's&O's -Plans for HD later on this morning Hypertensive urgency -BP on admission 197/95 -Hx Hypertension -on Nitro gtt -Continue to monitor BP -Once BP under control, resume oral BP meds ESRD on HD -// -Last dialyzed Friday (09/18/19) -Missed 09/21/19 HD session d/t not feeling well -Avoid nephrotoxin agents -Renal dose all meds -Nephrology consulted DM2 -POC BG monitoring -SSI coverage prn -Hgb A1c pending Hx COPD -Scheduled pulmicort -Albuterol prn Tobacco dependence -Current every day smoker -Counseled for cessation -Nicotine patch when necessary DVT PPX -on Heparin Advance Directives: No VTE prophylaxis?: Chemical Plan of care discussed with patient/family: Yes <ASHWIN SANTA - Last Filed: 09/23/19 05:29> History of Present Illness Date of admission: 09/22/19 23:54 Medications and Allergies Active Meds: Active Medications Acetaminophen (Tylenol) 650 mg PO Q4H PRN PRN Reason: Pain MILD(1-3)/Fever >100.5/DAILEY Albuterol (Proventil) 2.5 mg IH Q3HRT PRN PRN Reason: Shortness Of Breath Budesonide (Pulmicort) 0.5 mg IH Q12HRT THONY Dextrose (D50w (25gm) Syringe) 0 ml IV Q30MIN PRN PRN Reason: Hypoglycemia Heparin Sodium (Porcine) (Heparin) 5,000 unit SUB-Q Q12HR THONY Nitroglycerin/Dextrose (Tridil Drip 50mg/250ml) 50 mg in 250 mls @ 3 mls/hr IV TITR THONY; Protocol Last Titration: 09/23/19 02:51 Dose: 40 mcg/min, 12 mls/hr Documented by: Insulin Human Lispro (Humalog) 0 unit SUB-Q ACHS THONY; Protocol Nicotine (Habitrol) 14 mg TD QDAY THONY Ondansetron HCl (Zofran) 4 mg IV Q6H PRN PRN Reason: Nausea And Vomiting Sodium Chloride (Sodium Chloride Flush Syringe 10 Ml) 10 ml IV BID THONY Sodium Chloride (Sodium Chloride Flush Syringe 10 Ml) 10 ml IV PRN PRN PRN Reason: LINE FLUSH Exam - Constitutional Vitals: Temp Pulse Resp BP Pulse Ox 97.8 F 83 12 173/77 100 09/23/19 04:00 09/23/19 04:00 09/23/19 03:12 09/23/19 01:45 09/23/19 01:45 Results - Labs CBC & Chem 7: 09/22/19 22:22 09/22/19 22:22 Labs: Laboratory Last Values WBC 9.5 K/mm3 (4.5-11.0) 09/22/19 22:22 RBC 3.28 M/mm3 (3.65-5.03) L 09/22/19 22:22 Hgb 10.1 gm/dl (11.8-15.2) L 09/22/19 22:22 Hct 28.8 % (35.5-45.6) L 09/22/19 22:22 MCV 88 fl (84-94) 09/22/19 22:22 MCH 31 pg (28-32) 09/22/19 22:22 MCHC 35 % (32-34) H 09/22/19 22:22 RDW 14.5 % (13.2-15.2) 09/22/19 22:22 Plt Count 162 K/mm3 (140-440) 09/22/19 22:22 Add Manual Diff Complete 09/22/19 22:22 Total Counted 100 09/22/19 22:22 Seg Neuts % (Manual) 86.0 % (40.0-70.0) H 09/22/19 22:22 Band Neutrophils % 3.0 % 09/22/19 22:22 Lymphocytes % (Manual) 4.0 % (13.4-35.0) L 09/22/19 22:22 Reactive Lymphs % (Man) 0 % 09/22/19 22:22 Monocytes % (Manual) 7.0 % (0.0-7.3) 09/22/19 22:22 Eosinophils % (Manual) 0 % (0.0-4.3) 09/22/19 22:22 Basophils % (Manual) 0 % (0.0-1.8) 09/22/19 22:22 Metamyelocytes % 0 % 09/22/19 22:22 Myelocytes % 0 % 09/22/19 22:22 Promyelocytes % 0 % 09/22/19 22:22 Blast Cells % 0 % 09/22/19 22:22 Nucleated RBC % Not Reportable 09/22/19 22:22 Seg Neutrophils # Man 8.2 K/mm3 (1.8-7.7) H 09/22/19 22:22 Band Neutrophils # 0.3 K/mm3 09/22/19 22:22 Lymphocytes # (Manual) 0.4 K/mm3 (1.2-5.4) L 09/22/19 22:22 Abs React Lymphs (Man) 0.0 K/mm3 09/22/19 22:22 Monocytes # (Manual) 0.7 K/mm3 (0.0-0.8) 09/22/19 22:22 Eosinophils # (Manual) 0.0 K/mm3 (0.0-0.4) 09/22/19 22:22 Basophils # (Manual) 0.0 K/mm3 (0.0-0.1) 09/22/19 22:22 Metamyelocytes # 0.0 K/mm3 09/22/19 22:22 Myelocytes # 0.0 K/mm3 09/22/19 22:22 Promyelocytes # 0.0 K/mm3 09/22/19 22:22 Blast Cells # 0.0 K/mm3 09/22/19 22:22 WBC Morphology Not Reportable 09/22/19 22:22 Hypersegmented Neuts Not Reportable 09/22/19 22:22 Hyposegmented Neuts Not Reportable 09/22/19 22:22 Hypogranular Neuts Not Reportable 09/22/19 22:22 Smudge Cells Not Reportable 09/22/19 22:22 Toxic Granulation Not Reportable 09/22/19 22:22 Toxic Vacuolation Not Reportable 09/22/19 22:22 Dohle Bodies Not Reportable 09/22/19 22:22 Pelger-Huet Anomaly Not Reportable 09/22/19 22:22 Rocael Rods Not Reportable 09/22/19 22:22 Platelet Estimate Consistent w auto 09/22/19 22:22 Clumped Platelets Not Reportable 09/22/19 22:22 Plt Clumps, EDTA Not Reportable 09/22/19 22:22 Large Platelets Not Reportable 09/22/19 22:22 Giant Platelets Not Reportable 09/22/19 22:22 Platelet Satelliting Not Reportable 09/22/19 22:22 Plt Morphology Comment Not Reportable 09/22/19 22:22 RBC Morphology Not Reportable 09/22/19 22:22 Dimorphic RBCs Not Reportable 09/22/19 22:22 Polychromasia Not Reportable 09/22/19 22:22 Hypochromasia Not Reportable 09/22/19 22:22 Poikilocytosis Not Reportable 09/22/19 22:22 Anisocytosis Not Reportable 09/22/19 22:22 Microcytosis Not Reportable 09/22/19 22:22 Macrocytosis Not Reportable 09/22/19 22:22 Spherocytes Not Reportable 09/22/19 22:22 Pappenheimer Bodies Not Reportable 09/22/19 22:22 Sickle Cells Not Reportable 09/22/19 22:22 Target Cells 1+ 09/22/19 22:22 Tear Drop Cells Not Reportable 09/22/19 22:22 Ovalocytes Not Reportable 09/22/19 22:22 Helmet Cells Not Reportable 09/22/19 22:22 Fuentes[place] Bodies Not Reportable 09/22/19 22:22 Wendell Rings Not Reportable 09/22/19 22:22 [place] Cells Not Reportable 09/22/19 22:22 Bite Cells Not Reportable 09/22/19 22:22 Crenated Cell Not Reportable 09/22/19 22:22 Elliptocytes Not Reportable 09/22/19 22:22 Acanthocytes (Spur) Not Reportable 09/22/19 22:22 Rouleaux Not Reportable 09/22/19 22:22 Hemoglobin C Crystals Not Reportable 09/22/19 22:22 Schistocytes Not Reportable 09/22/19 22:22 Malaria parasites Not Reportable 09/22/19 22:22 Joey Bodies Not Reportable 09/22/19 22:22 Hem Pathologist Commnt No 09/22/19 22:22 PT 13.2 Sec. (12.2-14.9) 09/22/19 22:22 INR 1.01 (0.87-1.13) 09/22/19 22:22 APTT 32.4 Sec. (24.2-36.6) 09/22/19 22:22 Sodium 133 mmol/L (137-145) L 09/22/19 22:22 Potassium 4.3 mmol/L (3.6-5.0) 09/22/19 22:22 Chloride 93.4 mmol/L (98-107) L 09/22/19 22:22 Carbon Dioxide 20 mmol/L (22-30) L 09/22/19 22:22 Anion Gap 24 mmol/L 09/22/19 22:22 BUN 68 mg/dL (9-20) H 09/22/19 22:22 Creatinine 9.9 mg/dL (0.8-1.5) H 09/22/19 22:22 Estimated GFR 6 ml/min 09/22/19 22:22 BUN/Creatinine Ratio 7 % 09/22/19 22:22 Glucose 193 mg/dL (75-100) H 09/22/19 22:22 Hemoglobin A1c 4.7 % (4-6) 09/23/19 00:42 Calcium 9.4 mg/dL (8.4-10.2) 09/22/19 22:22 Total Bilirubin 0.50 mg/dL (0.1-1.2) 09/22/19 22:22 AST 22 units/L (5-40) 09/22/19 22:22 ALT 17 units/L (7-56) 09/22/19 22:22 Alkaline Phosphatase 68 units/L (35-129) 09/22/19 22:22 Troponin T 0.100 ng/mL (0.00-0.029) H 09/23/19 00:42 NT-Pro-B Natriuret Pep 64731 pg/mL (0-900) H 09/22/19 22:22 Total Protein 7.1 g/dL (6.3-8.2) 09/22/19 22:22 Albumin 3.9 g/dL (3.9-5) 09/22/19 22:22 Albumin/Globulin Ratio 1.2 % 09/22/19 22:22 Assessment and Plan Assessment and plan: 69 year old man with end-stage renal disease on dialysis, hypertension, diabetes, coronary artery disease, peripheral vascular disease, COPD, CVA was brought to the emergency room with complaints of shortness of breath. at bedside stated that he missed dialysis yesterday because he had diarrhea. Patient with fluid overload, blood pressure control, started on nitroglycerin drip. Renal was consulted for dialysis, abnormal cardiac enzymes are cardiac enzymes, echo, critical care consulted
[2019-09-23 03:15] LABS: Band Neutrophils # (Manual) 0.3 K/mm3; Basophils % (Manual) 0 % (0.0-1.8); Eosinophils % (Manual) 0 % (0.0-4.3); Total Cells Counted 100
[2019-09-23 03:17] LABS: Target Cells 1+
[2019-09-23 03:18] LABS: Platelet Estimate Consistent w Auto
[2019-09-23 05:39] LABS: Chol/HDL Ratio 2.73 %
[2019-09-23] MEDS ORDERED: niCARdipine 50 MG in SODIUM CHLORIDE 0.9% 250ML 230 ML IV SCH (06:00)
[2019-09-23 06:21] LABS: Creatine Kinase MB 5.3 ng/mL (0.0-4.0)
[2019-09-23] MEDS ORDERED: ALBUMIN HUMAN 25% (25 GM/100 ML) INJ IV PRN (06:55)
[2019-09-23] MEDS ORDERED: EPOETIN ALFA 10,000 UNIT/1 ML INJ SUB-Q PRN (06:55)
[2019-09-23] MEDS ORDERED: SODIUM CHLORIDE 0.9% 100 ML IV PRN (06:55)
[2019-09-23] MEDS: INSULIN LISPRO 100 UNIT/ML SUB-Q SCH ×4 (08:00→21:51)
[2019-09-23] MEDS: BUDESONIDE 0.5 MG/2 ML NEBU IH SCH ×2 (08:32→20:06)
[2019-09-23 09:09] LABS: Hepatitis B Surface Antigen Non-Reactive (Negative); Hepatitis C Virus Antibody Non-Reactive (NonReactive)
[2019-09-23] MEDS ORDERED: ENOXAPARIN 30 MG/0.3 ML INJ SUB-Q SCH (10:00)
[2019-09-23] MEDS: HEPARIN 5,000 UNIT/1 ML VIAL SUB-Q SCH ×2 (10:20→21:37)
[2019-09-23] MEDS: NICOTINE 14 MG/24 HR PATCH TD SCH (10:21)
--- NOTE | 2019-09-23 11:49 | Consultation ---
History of Present Illness Consult date: 09/23/19 Requesting physician: ENRRIQUE MORALES Reason for consult: dyspnea, hypoxemia History of present illness: 69 y/o male with ESRD on HD /Friday who missed Friday and Friday presented to the ED with chest pain and shortness of breath. Started on Nitro drip and was admitted to ICU. Patient to get HD this am. Past History Past Medical History: acute SD, COPD, diabetes, ESRD (on HD //), heart failure (diastolic), hypertension, migraines, stroke (with right-sided residual deficits), other (osteoarthritis,) Past Surgical History: tonsillectomy, Other (left upper arm AV fistula) Social history: , smoking Family history: hypertension Medications and Allergies Allergies Allergy/AdvReac Type Severity Reaction Status Date / Time No Known Allergies Allergy Verified 03/11/18 11:20 Home Medications Medication Instructions Recorded Confirmed Last Taken Type Labetalol [Labetalol 200mg TAB] 200 mg PO BID #60 tablet 01/01/18 09/23/19 09/22/19 Rx 200 hydrALAZINE [Apresoline TAB] 100 mg PO TID 03/11/18 09/23/19 1 Day Ago History ~09/22/19 100 Ergocalciferol (Vitamin D2) 50,000 unit PO QWEEK 09/30/18 09/23/19 09/19/19 History [Drisdol] 50,000 Ferric Citrate (Nf) [Auryxia] 420 mg PO TIDWM 09/30/18 09/23/19 1 Day Ago History ~09/22/19 420 Vit B Comp No.3/Folic/C/Biotin 1 each PO DAILY 09/30/18 09/23/19 1 Day Ago History [Myra-Cirilo Rx Tablet] ~09/22/19 1 AtorvaSTATin [Lipitor] 20 mg PO QHS tablet 10/03/18 09/23/19 Unknown Rx Nicotine [Habitrol] 21 mg TD DAILY #30 patch 10/03/18 09/23/19 Unknown Rx Pantoprazole [Protonix TAB] 40 mg PO QDAY tablet 10/03/18 09/23/19 Unknown Rx Zolpidem [Ambien] 5 mg PO QHS PRN tablet 10/03/18 09/23/19 1 Day Ago Rx ~09/22/19 5 amLODIPine 5 mg PO DAILY tablet 10/03/18 09/23/19 1 Day Ago Rx ~09/22/19 5 Active Meds: Active Medications Acetaminophen (Tylenol) 650 mg PO Q4H PRN PRN Reason: Pain MILD(1-3)/Fever >100.5/DAILEY Albumin Human (Alburx 25% (Albumin)) 25 gm IV HAKAN PRN PRN Reason: Hypotension Albuterol (Proventil) 2.5 mg IH Q3HRT PRN PRN Reason: Shortness Of Breath Budesonide (Pulmicort) 0.5 mg IH Q12HRT [facility] Last Admin: 09/23/19 08:32 Dose: 0.5 mg Documented by: Dextrose (D50w (25gm) Syringe) 0 ml IV Q30MIN PRN PRN Reason: Hypoglycemia Last Admin: 09/23/19 07:47 Dose: 15 ml Documented by: Epoetin Karl (Procrit) 10,000 unit SUB-Q HAKAN PRN PRN Reason: hemodialysis Heparin Sodium (Porcine) (Heparin) 5,000 unit SUB-Q Q12HR [facility] Last Admin: 09/23/19 10:20 Dose: 5,000 unit Documented by: Nicardipine HCl 50 mg/ Sodium (Chloride) 250 mls @ 25 mls/hr IV TITR [facility]; Protocol Sodium Chloride (Nacl 0.9%) 100 mls @ 999 mls/hr IV HAKAN PRN PRN Reason: Hypotension Insulin Human Lispro (Humalog) 0 unit SUB-Q ACHS [facility]; Protocol Nicotine (Habitrol) 14 mg TD QDAY [facility] Last Admin: 09/23/19 10:21 Dose: 14 mg Documented by: Ondansetron HCl (Zofran) 4 mg IV Q6H PRN PRN Reason: Nausea And Vomiting Sodium Chloride (Sodium Chloride Flush Syringe 10 Ml) 10 ml IV BID [facility] Sodium Chloride (Sodium Chloride Flush Syringe 10 Ml) 10 ml IV PRN PRN PRN Reason: LINE FLUSH Physical Examination Vital signs: Vital Signs Pulse Resp Pulse Ox 83 30 H 100 09/22/19 21:54 09/22/19 21:54 09/22/19 21:54 Results - Laboratory Findings CBC and BMP: 09/22/19 22:22 09/22/19 22:22 PT/INR, D-dimer PT 13.2 Sec. (12.2-14.9) 09/22/19 22:22 INR 1.01 (0.87-1.13) 09/22/19 22:22 Abnormal lab findings: Abnormal Labs 09/22/19 09/22/19 09/22/19 22:22 22:22 22:22 RBC 3.28 L Hgb 10.1 L Hct 28.8 L MCHC 35 H Seg Neuts % (Manual) 86.0 H Lymphocytes % (Manual) 4.0 L Seg Neutrophils # Man 8.2 H Lymphocytes # (Manual) 0.4 L Sodium 133 L Chloride 93.4 L Carbon Dioxide 20 L BUN 68 H Creatinine 9.9 H Glucose 193 H POC Glucose CK-MB (CK-2) Troponin T 0.098 H NT-Pro-B Natriuret Pep 34129 H 09/23/19 09/23/19 09/23/19 00:42 05:37 07:42 RBC Hgb Hct MCHC Seg Neuts % (Manual) Lymphocytes % (Manual) Seg Neutrophils # Man Lymphocytes # (Manual) Sodium Chloride Carbon Dioxide BUN Creatinine Glucose POC Glucose 67 L CK-MB (CK-2) 5.3 H Troponin T 0.100 H 0.112 H* NT-Pro-B Natriuret Pep Assessment and Plan 69 y/o male with acute respiratory failure secondary to pulmonary edema and volume overload secondary to missed sessions of HD. 1. HD per renal 2. Wean FiO2 to off 3. Stable transfer to floor after HD, if not able to discharge to home. CCT 31 minutes.
--- NOTE | 2019-09-23 12:52 | Progress Note ---
Assessment and Plan Assessment and plan: 69-year-old -[place] male who is an ongoing smoker with history of diastolic heart failure, [place], CVA with right-sided residual weakness, hypertension, diabetes, osteoarthritis, ESRD on HD () and COPD presents to [facility] ED via EMS with complaints of shortness of breath and hypoxemia. At the time of my examination, pt is sitting up in stretcher on BiPaP with saturation of 100%. He is able to answer yes/no questions and give short worded responses. His remains present at bedside. Acute hypoxic respiratory failure - Currently patient is saturating well on room air -No Baseline home oxygen requirements -Saturation in low 70's on RA per EMS report, was on BIPAP Acute exacerbation [place] [address] -Troponin slightly elevated at 0.098, likely due to ESRD -CXR shows: Mild pulmonary edema and small bilateral pleural effusions -BLE trace edema -Strict I's&O's -will have HD this morning Hypertensive urgency - BP on admission was 197/95 - Was on Nitro gtt but currently BP is controlled and nitro dced - Continue to monitor BP ESRD on HD - -Last dialyzed Friday (09/18/19) -Missed 09/21/19 HD session d/t not feeling well -Avoid nephrotoxin agents -Renal dose all meds -Nephrology consulted DM2 -POC BG monitoring -SSI coverage prn -Hgb A1c pending Hx COPD -Scheduled pulmicort -Albuterol prn Tobacco dependence -Current every day smoker -Counseled for cessation -Nicotine patch when necessary DVT PPX -on Heparin Disposition; transfer to telemetry floor. History Interval history: Patient was seen and evaluated this morning, patient's SOB is getting better, patient's BP controlled. Hospitalist Physical - Constitutional Vitals: Temp Pulse Resp BP Pulse Ox 98.5 F 79 18 176/74 97 09/23/19 12:00 09/23/19 12:15 09/23/19 12:15 09/23/19 12:15 09/23/19 12:15 General appearance: Present: no acute distress - EENT Eyes: Present: PERRL. Absent: scleral icterus, discharge ENT: hearing intact, clear oral mucosa, dentition normal - Neck Neck: Present: supple, normal ROM - Respiratory Respiratory effort: normal Respiratory: bilateral: CTA - Cardiovascular Rhythm: regular Heart Sounds: Present: S1 & S2 - Extremities Extremities: no ischemia, No edema Peripheral Pulses: within normal limits - Abdominal General gastrointestinal: soft, non-tender, non-distended, normal bowel sounds - Integumentary Integumentary: Present: clear, warm, dry - Psychiatric Psychiatric: appropriate mood/affect - Neurologic Neurologic: no focal deficits, moves all extremities - Allied Health Allied health notes reviewed: nursing Results - Labs CBC & Chem 7: 09/22/19 22:22 09/22/19 22:22 Labs: Laboratory Last Values WBC 9.5 K/mm3 (4.5-11.0) 09/22/19 22:22 RBC 3.28 M/mm3 (3.65-5.03) L 09/22/19 22:22 Hgb 10.1 gm/dl (11.8-15.2) L 09/22/19 22:22 Hct 28.8 % (35.5-45.6) L 09/22/19 22:22 MCV 88 fl (84-94) 09/22/19 22:22 MCH 31 pg (28-32) 09/22/19 22:22 MCHC 35 % (32-34) H 09/22/19 22:22 RDW 14.5 % (13.2-15.2) 09/22/19 22:22 Plt Count 162 K/mm3 (140-440) 09/22/19 22:22 Add Manual Diff Complete 09/22/19 22:22 Total Counted 100 09/22/19 22:22 Seg Neuts % (Manual) 86.0 % (40.0-70.0) H 09/22/19 22:22 Band Neutrophils % 3.0 % 09/22/19 22:22 Lymphocytes % (Manual) 4.0 % (13.4-35.0) L 09/22/19 22:22 Reactive Lymphs % (Man) 0 % 09/22/19 22:22 Monocytes % (Manual) 7.0 % (0.0-7.3) 09/22/19 22:22 Eosinophils % (Manual) 0 % (0.0-4.3) 09/22/19 22:22 Basophils % (Manual) 0 % (0.0-1.8) 09/22/19 22:22 Metamyelocytes % 0 % 09/22/19 22:22 Myelocytes % 0 % 09/22/19 22:22 Promyelocytes % 0 % 09/22/19 22:22 Blast Cells % 0 % 09/22/19 22:22 Nucleated RBC % Not Reportable 09/22/19 22:22 Seg Neutrophils # Man 8.2 K/mm3 (1.8-7.7) H 09/22/19 22:22 Band Neutrophils # 0.3 K/mm3 09/22/19 22:22 Lymphocytes # (Manual) 0.4 K/mm3 (1.2-5.4) L 09/22/19 22:22 Abs React Lymphs (Man) 0.0 K/mm3 09/22/19 22:22 Monocytes # (Manual) 0.7 K/mm3 (0.0-0.8) 09/22/19 22:22 Eosinophils # (Manual) 0.0 K/mm3 (0.0-0.4) 09/22/19 22:22 Basophils # (Manual) 0.0 K/mm3 (0.0-0.1) 09/22/19 22:22 Metamyelocytes # 0.0 K/mm3 09/22/19 22:22 Myelocytes # 0.0 K/mm3 09/22/19 22:22 Promyelocytes # 0.0 K/mm3 09/22/19 22:22 Blast Cells # 0.0 K/mm3 09/22/19 22:22 WBC Morphology Not Reportable 09/22/19 22:22 Hypersegmented Neuts Not Reportable 09/22/19 22:22 Hyposegmented Neuts Not Reportable 09/22/19 22:22 Hypogranular Neuts Not Reportable 09/22/19 22:22 Smudge Cells Not Reportable 09/22/19 22:22 Toxic Granulation Not Reportable 09/22/19 22:22 Toxic Vacuolation Not Reportable 09/22/19 22:22 Dohle Bodies Not Reportable 09/22/19 22:22 Pelger-Huet Anomaly Not Reportable 09/22/19 22:22 Rocael Rods Not Reportable 09/22/19 22:22 Platelet Estimate Consistent w auto 09/22/19 22:22 Clumped Platelets Not Reportable 09/22/19 22:22 Plt Clumps, EDTA Not Reportable 09/22/19 22:22 Large Platelets Not Reportable 09/22/19 22:22 Giant Platelets Not Reportable 09/22/19 22:22 Platelet Satelliting Not Reportable 09/22/19 22:22 Plt Morphology Comment Not Reportable 09/22/19 22:22 RBC Morphology Not Reportable 09/22/19 22:22 Dimorphic RBCs Not Reportable 09/22/19 22:22 Polychromasia Not Reportable 09/22/19 22:22 Hypochromasia Not Reportable 09/22/19 22:22 Poikilocytosis Not Reportable 09/22/19 22:22 Anisocytosis Not Reportable 09/22/19 22:22 Microcytosis Not Reportable 09/22/19 22:22 Macrocytosis Not Reportable 09/22/19 22:22 Spherocytes Not Reportable 09/22/19 22:22 Pappenheimer Bodies Not Reportable 09/22/19 22:22 Sickle Cells Not Reportable 09/22/19 22:22 Target Cells 1+ 09/22/19 22:22 Tear Drop Cells Not Reportable 09/22/19 22:22 Ovalocytes Not Reportable 09/22/19 22:22 Helmet Cells Not Reportable 09/22/19 22:22 Fuentes[place] Bodies Not Reportable 09/22/19 22:22 [place] Rings Not Reportable 09/22/19 22:22 Alin Cells Not Reportable 09/22/19 22:22 Bite Cells Not Reportable 09/22/19 22:22 Crenated Cell Not Reportable 09/22/19 22:22 Elliptocytes Not Reportable 09/22/19 22:22 Acanthocytes (Spur) Not Reportable 09/22/19 22:22 Rouleaux Not Reportable 09/22/19 22:22 Hemoglobin C Crystals Not Reportable 09/22/19 22:22 Schistocytes Not Reportable 09/22/19 22:22 Malaria parasites Not Reportable 09/22/19 22:22 Joey Bodies Not Reportable 09/22/19 22:22 Hem Pathologist Commnt No 09/22/19 22:22 PT 13.2 Sec. (12.2-14.9) 09/22/19 22:22 INR 1.01 (0.87-1.13) 09/22/19 22:22 APTT 32.4 Sec. (24.2-36.6) 09/22/19 22:22 Sodium 133 mmol/L (137-145) L 09/22/19 22:22 Potassium 4.3 mmol/L (3.6-5.0) 09/22/19 22:22 Chloride 93.4 mmol/L (98-107) L 09/22/19 22:22 Carbon Dioxide 20 mmol/L (22-30) L 09/22/19 22:22 Anion Gap 24 mmol/L 09/22/19 22:22 BUN 68 mg/dL (9-20) H 09/22/19 22:22 Creatinine 9.9 mg/dL (0.8-1.5) H 09/22/19 22:22 Estimated GFR 6 ml/min 09/22/19 22:22 BUN/Creatinine Ratio 7 % 09/22/19 22:22 Glucose 193 mg/dL (75-100) H 09/22/19 22:22 POC Glucose 141 (70-105) H 09/23/19 11:57 Hemoglobin A1c 4.7 % (4-6) 09/23/19 00:42 Calcium 9.4 mg/dL (8.4-10.2) 09/22/19 22:22 Total Bilirubin 0.50 mg/dL (0.1-1.2) 09/22/19 22:22 AST 22 units/L (5-40) 09/22/19 22:22 ALT 17 units/L (7-56) 09/22/19 22:22 Alkaline Phosphatase 68 units/L (35-129) 09/22/19 22:22 Total Creatine Kinase 163 units/L (55-170) 09/23/19 11:21 CK-MB (CK-2) 5.0 ng/mL (0.0-4.0) H 09/23/19 11:21 CK-MB (CK-2) Rel Index 3.0 (0-4) 09/23/19 11:21 Troponin T 0.114 ng/mL (0.00-0.029) H* 09/23/19 11:21 NT-Pro-B Natriuret Pep 03166 pg/mL (0-900) H 09/22/19 22:22 Total Protein 7.1 g/dL (6.3-8.2) 09/22/19 22:22 Albumin 3.9 g/dL (3.9-5) 09/22/19 22:22 Albumin/Globulin Ratio 1.2 % 09/22/19 22:22 Triglycerides 47 mg/dL (2-149) 09/23/19 00:42 Cholesterol 153 mg/dL (50-199) 09/23/19 00:42 LDL Cholesterol Direct 96 mg/dL (50-130) 09/23/19 00:42 HDL Cholesterol 56 mg/dL (40-59) 09/23/19 00:42 Cholesterol/HDL Ratio 2.73 % 09/23/19 00:42 Hepatitis A IgM Ab Non-reactive (NonReactive) 09/23/19 08:14 Hep Bs Antigen Non-reactive (Negative) 09/23/19 08:14 Hep B Core IgM Ab Non-reactive (NonReactive) 09/23/19 08:14 Hepatitis C Antibody Non-reactive (NonReactive) 09/23/19 08:14 Active Medications - Current Medications Current Medications: Generic Name Dose Route Start Last Admin Trade Name Freq PRN Reason Stop Dose Admin Acetaminophen 650 mg 09/23/19 00:27 Tylenol PO Q4H PRN Pain MILD(1-3)/Fever >100.5/DAILEY Albumin Human 25 gm 09/23/19 06:55 Alburx 25% (Albumin) IV HAKAN PRN Hypotension Albuterol 2.5 mg 09/23/19 00:27 Proventil IH Q3HRT PRN Shortness Of Breath Budesonide 0.5 mg 09/23/19 08:00 09/23/19 08:32 Pulmicort IH 0.5 mg Q12HRT THONY Administration Dextrose 0 ml 09/23/19 00:27 09/23/19 07:47 D50w (25gm) Syringe IV 15 ml Q30MIN PRN Administration Hypoglycemia Epoetin Karl 10,000 unit 09/23/19 06:55 Procrit SUB-Q HAKAN PRN hemodialysis Heparin Sodium (Porcine) 5,000 unit 09/23/19 10:00 09/23/19 10:20 Heparin SUB-Q 5,000 unit Q12HR THONY Administration Nicardipine HCl 50 mg/ Sodium 250 mls @ 25 mls/hr 09/23/19 06:00 Chloride IV TITR THONY Protocol 5 MG/HR Sodium Chloride 100 mls @ 999 mls/hr 09/23/19 06:55 Nacl 0.9% IV HAKAN PRN Hypotension Insulin Human Lispro 0 unit 09/23/19 07:30 09/23/19 12:34 Humalog SUB-Q Not Given ACHS [facility] Protocol Nicotine 14 mg 09/23/19 10:00 09/23/19 10:21 Habitrol TD 14 mg QDAY [facility] Administration Ondansetron HCl 4 mg 09/23/19 00:27 Zofran IV Q6H PRN Nausea And Vomiting Sodium Chloride 10 ml 09/23/19 10:00 09/23/19 10:00 Sodium Chloride Flush Syringe 10 Ml IV Not Given BID [facility] Sodium Chloride 10 ml 09/23/19 00:27 Sodium Chloride Flush Syringe 10 Ml IV PRN PRN LINE FLUSH
[2019-09-23] MEDS ORDERED: amLODIPine 5 MG TAB PO SCH ×2 (13:00→13:46)
[2019-09-23] MEDS ORDERED: ZOLPIDEM 5 MG TAB PO PRN (13:00)
[2019-09-23] MEDS: hydrALAZINE 100 MG TAB PO SCH ×2 (14:48→21:37)
--- NOTE | 2019-09-23 19:45 | Consultation ---
History of Present Illness - Reason for Consult Consult date: 09/23/19 end stage renal disease Requesting physician: ENRRIQUE MORALES - History of Present Illness This is a 69 yo AAM with past medical history of hypertension, DM, chronic diastolic HF, [place], h/o CVA, COPD, ESRD on HD on TTS schedule, who was BIBEMS to [facility] with complaints of shortness of breath, dyspnea on exertion and hypoxemia, with O2sat at 70s when EMS arrive. EMS administered IV lasix 40mg, 2g Mg and nitro SL. In ER patient was started on nitro gtt and placed on BIPAP with improvement of O2 saturation. CXR showed evidence of pulmonary edema and pleural effusion. Renal consult is requested for management of ESRD/HD. Patient missed his HD on Fri09/21/19 because he was not feeling well. Past History Past Medical History: acute [place], COPD, diabetes, ESRD (on HD T//), heart failure (diastolic), hypertension, migraines, stroke (with right-sided residual deficits), other (osteoarthritis,) Past Surgical History: tonsillectomy, Other (left upper arm AV fistula) Social history: , smoking Family history: hypertension Medications and Allergies Allergies Allergy/AdvReac Type Severity Reaction Status Date / Time No Known Allergies Allergy Verified 03/11/18 11:20 Home Medications Medication Instructions Recorded Confirmed Last Taken Type Labetalol [Labetalol 200mg TAB] 200 mg PO BID #60 tablet 01/01/18 09/23/19 09/22/19 Rx 200 hydrALAZINE [Apresoline TAB] 100 mg PO TID 03/11/18 09/23/19 1 Day Ago History ~09/22/19 100 Ergocalciferol (Vitamin D2) 50,000 unit PO QWEEK 09/30/18 09/23/19 09/19/19 History [Drisdol] 50,000 Ferric Citrate (Nf) [Auryxia] 420 mg PO TIDWM 09/30/18 09/23/19 1 Day Ago History ~09/22/19 420 Vit B Comp No.3/Folic/C/Biotin 1 each PO DAILY 09/30/18 09/23/19 1 Day Ago History [Myra-Cirilo Rx Tablet] ~09/22/19 1 AtorvaSTATin [Lipitor] 20 mg PO QHS tablet 10/03/18 09/23/19 Unknown Rx Nicotine [Habitrol] 21 mg TD DAILY #30 patch 10/03/18 09/23/19 Unknown Rx Pantoprazole [Protonix TAB] 40 mg PO QDAY tablet 10/03/18 09/23/19 Unknown Rx Zolpidem [Ambien] 5 mg PO QHS PRN tablet 10/03/18 09/23/19 1 Day Ago Rx ~09/22/19 5 amLODIPine 5 mg PO DAILY tablet 10/03/18 09/23/19 1 Day Ago Rx ~09/22/19 5 Active Meds: Active Medications Acetaminophen (Tylenol) 650 mg PO Q4H PRN PRN Reason: Pain MILD(1-3)/Fever >100.5/DAILEY Albumin Human (Alburx 25% (Albumin)) 25 gm IV HAKAN PRN PRN Reason: Hypotension Albuterol (Proventil) 2.5 mg IH Q3HRT PRN PRN Reason: Shortness Of Breath Amlodipine Besylate (Amlodipine) 10 mg PO DAILY [facility] Atorvastatin Calcium (Lipitor) 20 mg PO QHS THONY Budesonide (Pulmicort) 0.5 mg IH Q12HRT [facility] Last Admin: 09/23/19 08:32 Dose: 0.5 mg Documented by: Dextrose (D50w (25gm) Syringe) 0 ml IV Q30MIN PRN PRN Reason: Hypoglycemia Last Admin: 09/23/19 07:47 Dose: 15 ml Documented by: Epoetin Karl (Procrit) 10,000 unit SUB-Q HAKAN PRN PRN Reason: hemodialysis Ergocalciferol (Vitamin D2) 50,000 unit PO [place] [facility] Heparin Sodium (Porcine) (Heparin) 5,000 unit SUB-Q Q12HR [facility] Last Admin: 09/23/19 10:20 Dose: 5,000 unit Documented by: Hydralazine HCl (Apresoline) 100 mg PO TID [facility] Last Admin: 09/23/19 14:48 Dose: 100 mg Documented by: Nicardipine HCl 50 mg/ Sodium (Chloride) 250 mls @ 25 mls/hr IV TITR THONY; Protocol Sodium Chloride (Nacl 0.9%) 100 mls @ 999 mls/hr IV HAKAN PRN PRN Reason: Hypotension Insulin Human Lispro (Humalog) 0 unit SUB-Q ACHS [facility]; Protocol Last Admin: 09/23/19 16:58 Dose: Not Given Documented by: Labetalol HCl (Labetalol) 200 mg PO BID [facility] Last Admin: 09/23/19 14:49 Dose: 200 mg Documented by: Nicotine (Habitrol) 14 mg TD QDAY [facility] Last Admin: 09/23/19 10:21 Dose: 14 mg Documented by: Ondansetron HCl (Zofran) 4 mg IV Q6H PRN PRN Reason: Nausea And Vomiting Pantoprazole Sodium (Protonix) 40 mg PO QDAY [facility] Sodium Chloride (Sodium Chloride Flush Syringe 10 Ml) 10 ml IV BID [facility] Last Admin: 09/23/19 10:00 Dose: Not Given Documented by: Sodium Chloride (Sodium Chloride Flush Syringe 10 Ml) 10 ml IV PRN PRN PRN Reason: LINE FLUSH Zolpidem Tartrate (Ambien) 5 mg PO QHS PRN PRN Reason: Insomnia Review of Systems All systems: negative Constitutional: weakness, malaise Cardiovascular: orthopnea, shortness of breath, dyspnea on exertion Respiratory: cough Exam - Vital Signs Vital signs: Vital Signs Pulse Resp Pulse Ox 83 30 H 100 09/22/19 21:54 09/22/19 21:54 09/22/19 21:54 - General Appearance General appearance: well-developed, well-nourished, appears stated age EENT: ATNC, PERRL, mucous membranes moist Neck: Present: neck supple Respiratory: Decreased Breath Sounds Heart: regular, S1S2 Gastrointestinal: Present: normoactive bowel sounds Integumentary: no rash, other (no edema ) Neurologic: no focal deficit, alert and oriented x3, strength 5/5, CN 3-12 intact Psychiatric: mood/affect appropriate, cooperative Results - Lab Results 09/22/19 22:22 09/22/19 22:22 Most recent lab results Calcium 9.4 mg/dL (8.4-10.2) 09/22/19 22:22 Assessment and Plan - Patient Problems (1) ESRD needing dialysis Current Visit: Yes Status: Chronic Plan to address problem: Cont HD on TTS schedule, with target UF 3L as tolerated for further volume control. (2) Pulmonary edema Current Visit: Yes Status: Acute Plan to address problem: improved s/p nitro gtt and with HD. reinforced compliance with all HD treatments to avoid cardiopulmonary complications/recurrent hospitalizations (3) Acute respiratory distress Current Visit: Yes Status: Acute (4) Hyponatremia Current Visit: Yes Status: Acute Plan to address problem: likely hypervolemic in origin, expect to be corrected with HD (5) Hypertensive chronic kidney disease with stage 5 chronic kidney disease or end stage renal disease Current Visit: Yes Status: Acute Plan to address problem: monitor BP on current medications.
[2019-09-24 06:14] LABS: Basophils # (Auto) 0.1 K/mm3 (0.0-0.1); Basophils % (Auto) 0.9 % (0.0-1.8); Eosinophils # (Auto) 0.1 K/mm3 (0.0-0.4); Eosinophils % (Auto) 0.9 % (0.0-4.3); Hemoglobin 9.6 gm/dl (11.8-15.2); Lymphocytes # (Auto) 1.1 K/mm3 (1.2-5.4); Lymphocytes % (Auto) 14.5 % (13.4-35.0); Mean Corpuscular HGB Conc 35 % (32-34); Mean Corpuscular Volume 87 fl (84-94); Monocytes # (Auto) 1.1 K/mm3 (0.0-0.8); Monocytes % (Auto) 15.1 % (0.0-7.3); Platelet Count 155 K/mm3 (140-440); Red Blood Count 3.11 M/mm3 (3.65-5.03); Red Cell Distribution Width 14.2 % (13.2-15.2)
[2019-09-24] MEDS: BUDESONIDE 0.5 MG/2 ML NEBU IH SCH (07:36)
[2019-09-24] MEDS: INSULIN LISPRO 100 UNIT/ML SUB-Q SCH ×2 (09:37→12:51)
[2019-09-24] MEDS ORDERED: PANTOPRAZOLE 40 MG TAB PO SCH (10:00)
[2019-09-24] MEDS: NICOTINE 14 MG/24 HR PATCH TD SCH (11:25)
[2019-09-24] MEDS: HEPARIN 5,000 UNIT/1 ML VIAL SUB-Q SCH (11:28)
[2019-09-24] MEDS: hydrALAZINE 100 MG TAB PO SCH ×2 (11:30→15:41)
[2019-09-24 11:47] VITALS: BP 151/77
--- NOTE | 2019-09-24 12:44 | Discharge Summary ---
Providers - Providers Date of Admission: 09/22/19 23:54 Date of discharge: 09/24/19 Attending physician: ENRRIQUE MORALES MD 09/23/19 00:04 Consult to Physician [CONS] Urgent Comment: Dr. Ng spoke with Dr. Gardner @ [id number] Consulting Provider: HI CORDON Physician Instructions: Reason For Exam: ESRD needing dialysis 09/23/19 09:44 Consult to Physician [CONS] Urgent Comment: Consulting Provider: ESTEVAN PATEL Physician Instructions: Reason For Exam: critical care management Primary care physician: PIPE BENDER Hospitalization Reason for admission: hypertensive emergency, dialysis noncompliance Condition: Stable Hospital course: 69-year-old -[place] male who is an ongoing smoker with history of diastolic heart failure, [place], CVA with right-sided residual weakness, hypertension, diabetes, osteoarthritis, ESRD on HD () and COPD presents to [facility] ED via EMS with complaints of shortness of breath and hypoxemia. Patient's is present at bedside and has assisted with providing history. Of note missed Friday's ( 09/21/19) dialysis session, because he was not feeling well. His said he has a few episodes of diarrhea and was afraid to leave the house. Per patient's , he was sitting down watching TV approximately 2 hours before presenting to ED when he suddenly became short of breath and displayed difficulty in breathing. immediately called EMS. Upon EMS arrival patient was found to be hypoxic with saturation in low 70s on room air. EMS administered IV Lasix 40 mg, 2 g of magnesium, and nitroglycerin 1. He was placed on CPAP transported to our facility. On presentation pt displayed short shallow breathing. He was placed on BiPaP with saturations >96%. Patient was admitted to the floor for the management of acute hypoxic respiratory failure secondary to fluid overload secondary to missed dialysis, hypertensive emergency. Patient was admitted to the ICU and was started on nitro drip. Nephrology consulted and patient dilyzed and his respiratory symptoms resolved. Blood pressure medications were restarted and blood pressure was controlled. This morning patient was doing well. Patient dialysis is Friday and Friday. Patient will be discharged home with the advice to have dialysis tomorrow as an outpatient. Blood pressure medications were adjusted at the time of discharge. Disposition: TO HOME OR SELFCARE Time spent for discharge: 32 minutes - Discharge Diagnoses (1) Acute respiratory distress Status: Acute (2) Hypertensive emergency Status: Acute (3) Hyponatremia Status: Acute (4) Pulmonary edema Status: Acute (5) ESRD needing dialysis Status: Chronic (6) Dyspnea Status: Acute Core Measure Documentation - Palliative Care Palliative Care/ Comfort Measures: Not Applicable - Core Measures Any of the following diagnoses?: none Exam - Physical Exam Narrative exam: Not in cardiopulmonary distress. The patient appeared well nourished and normally developed. Vital signs as documented. Head exam is unremarkable. No scleral icterus . Neck is without jugular venous distension, thyromegaly, or carotid bruits. Lungs are clear to auscultation. Cardiac exam reveals regular rate and Rhythm. Abdominal exam reveals normal bowel sounds, nontender, no organomegaly. Extremities are nonedematous and both femoral and pedal pulses are normal. [employer]: Alert and oriented 3. No focal weakness. - Constitutional Vitals: Temp Pulse Resp BP Pulse Ox 98.3 F 76 18 151/77 97 09/24/19 11:40 09/24/19 11:40 09/24/19 11:40 09/24/19 11:40 09/24/19 11:40 Plan Activity: no restrictions Weight Bearing Status: Full Weight Bearing Diet: low salt, renal Follow up with: PRIMARY CAREMD [Primary Care Provider] - 3-5 Days Prescriptions: amLODIPine 10 mg PO DAILY #60 tablet hydrALAZINE [Apresoline TAB] 100 mg PO TID #90 tab
--- NOTE | 2019-09-24 12:51 | Progress Note ---
Assessment and Plan - Patient Problems (1) ESRD needing dialysis Current Visit: Yes Status: Chronic Plan to address problem: Cont HD on TTS schedule, stable for discharge from renal stand point, pt can resume HD at his outpatient facility at [facility] (2) Pulmonary edema Current Visit: Yes Status: Acute Plan to address problem: improved s/p nitro gtt and with HD. reinforced compliance with all HD treatments to avoid cardiopulmonary complications/recurrent hospitalizations (3) Acute respiratory distress Current Visit: Yes Status: Acute (4) Hyponatremia Current Visit: Yes Status: Acute Plan to address problem: likely hypervolemic in origin, corrected with HD (5) Hypertensive chronic kidney disease with stage 5 chronic kidney disease or end stage renal disease Current Visit: Yes Status: Acute Plan to address problem: monitor BP on current medications. Subjective Date of service: 09/24/19 Principal diagnosis: ESRD Interval history: Pt awake, alert, in no acute distress. Objective - Vital Signs Vital signs: Vital Signs - 12hr 09/24/19 09/24/19 09/24/19 04:14 07:46 08:00 Temperature 98.9 F 97.6 F Pulse Rate 80 79 Pulse Rate [ 84 Anterior Bilateral] Respiratory 20 18 Rate Respiratory 18 Rate [Anterior Bilateral] Blood Pressure 151/63 146/67 O2 Sat by Pulse 94 94 Oximetry 09/24/19 09/24/19 08:43 11:40 Temperature 98.3 F Pulse Rate 76 Pulse Rate [ Anterior Bilateral] Respiratory 18 Rate Respiratory Rate [Anterior Bilateral] Blood Pressure 151/77 O2 Sat by Pulse 94 97 Oximetry - General Appearance General appearance: well-developed, well-nourished, appears stated age EENT: ATNC, PERRL, mucous membranes moist Neck: no JVD Respiratory: Present: Clear to Ascultation Cardiology: regular, S1S2 Gastrointestinal: normoactive bowel sounds Integumentary: no rash, other (no edema ) Neurologic: no focal deficit, alert and oriented x3, strength 5/5, CN 3-12 intact Psychiatric: mood/affect appropriate, cooperative - Lab 09/24/19 06:00 09/24/19 06:00 Most recent lab results Calcium 9.0 mg/dL (8.4-10.2) 09/24/19 06:00 Medications & Allergies - Medications Allergies/Adverse Reactions: Allergies No Known Allergies Allergy (Verified 03/11/18 11:20) Home Medications: Home Medications Medication Instructions Recorded Confirmed Last Taken Type Labetalol [Labetalol 200mg TAB] 200 mg PO BID #60 tablet 01/01/18 09/23/19 09/22/19 Rx 200 Ergocalciferol (Vitamin D2) 50,000 unit PO QWEEK 09/30/18 09/23/19 09/19/19 History [Drisdol] 50,000 Ferric Citrate (Nf) [Auryxia] 420 mg PO TIDWM 09/30/18 09/23/19 1 Day Ago History ~09/22/19 420 Vit B Comp No.3/Folic/C/Biotin 1 each PO DAILY 09/30/18 09/23/19 1 Day Ago History [Myra-Cirilo Rx Tablet] ~09/22/19 1 AtorvaSTATin [Lipitor] 20 mg PO QHS tablet 10/03/18 09/23/19 Unknown Rx Nicotine [Habitrol] 21 mg TD DAILY #30 patch 10/03/18 09/23/19 Unknown Rx Pantoprazole [Protonix TAB] 40 mg PO QDAY tablet 10/03/18 09/23/19 Unknown Rx Zolpidem [Ambien] 5 mg PO QHS PRN tablet 10/03/18 09/23/19 1 Day Ago Rx ~09/22/19 5 amLODIPine 10 mg PO DAILY #60 tablet 09/24/19 Unknown Rx hydrALAZINE [Apresoline TAB] 100 mg PO TID #90 tab 09/24/19 Unknown Rx Active Medications: Generic Name Dose Route Start Last Admin Trade Name Freq PRN Reason Stop Dose Admin Acetaminophen 650 mg 09/23/19 00:27 Tylenol PO Q4H PRN Pain MILD(1-3)/Fever >100.5/DAILEY Albumin Human 25 gm 09/23/19 06:55 Alburx 25% (Albumin) IV HAKAN PRN Hypotension Albuterol 2.5 mg 09/23/19 00:27 Proventil IH Q3HRT PRN Shortness Of Breath Amlodipine Besylate 10 mg 09/23/19 13:46 09/24/19 11:27 Amlodipine PO 10 mg DAILY THONY Administration Atorvastatin Calcium 20 mg 09/23/19 22:00 09/23/19 21:37 Lipitor PO 20 mg QHS THONY Administration Budesonide 0.5 mg 09/23/19 08:00 09/24/19 07:36 Pulmicort IH 0.5 mg Q12HRT THONY Administration Dextrose 0 ml 09/23/19 00:27 09/23/19 07:47 D50w (25gm) Syringe IV 15 ml Q30MIN PRN Administration Hypoglycemia Epoetin Karl 10,000 unit 09/23/19 06:55 Procrit SUB-Q HAKAN PRN hemodialysis Ergocalciferol 50,000 unit 09/27/19 10:00 Vitamin D2 PO [place] THONY Heparin Sodium (Porcine) 5,000 unit 09/23/19 10:00 09/24/19 11:28 Heparin SUB-Q 5,000 unit Q12HR THONY Administration Hydralazine HCl 100 mg 09/23/19 14:00 09/24/19 11:30 Apresoline PO 100 mg TID THONY Administration Sodium Chloride 100 mls @ 999 mls/hr 09/23/19 06:55 Nacl 0.9% IV HAKAN PRN Hypotension Insulin Human Lispro 0 unit 09/23/19 07:30 09/24/19 09:37 Humalog SUB-Q Not Given ACHS [facility] Protocol Labetalol HCl 200 mg 09/23/19 13:00 09/24/19 11:27 Labetalol PO 200 mg BID THONY Administration Nicotine 14 mg 09/23/19 10:00 09/24/19 11:25 Habitrol TD Not Given QDAY TOHNY Ondansetron HCl 4 mg 09/23/19 00:27 Zofran IV Q6H PRN Nausea And Vomiting Pantoprazole Sodium 40 mg 09/24/19 10:00 09/24/19 11:28 Protonix PO 40 mg QDAY THONY Administration Sodium Chloride 10 ml 09/23/19 10:00 09/24/19 11:29 Sodium Chloride Flush Syringe 10 Ml IV 10 ml BID THONY Administration Sodium Chloride 10 ml 09/23/19 00:27 Sodium Chloride Flush Syringe 10 Ml IV PRN PRN LINE FLUSH Zolpidem Tartrate 5 mg 09/23/19 13:00 Ambien PO QHS PRN Insomnia
[2019-09-27] MEDS ORDERED: ERGOCALCIFEROL (VIT D2) 50,000 UNIT CAP PO SCH (10:00)
[2019-09-30] MEDS ORDERED: ERGOCALCIFEROL (VIT D2) 50,000 UNIT CAP PO SCH (10:00)
== END 2019-09-24 16:25 | disposition home or self-care (01) | DRG 291 ==
LOC: ED 21:46 → CC1 23:54 → 4A 09-23 17:29
PROVIDERS: ADMIT Internal Medicine; ATTEND Internal Medicine
PROC: 5A09357 Assistance with Respiratory Ventilation, Less than 24 Consecutive Hours, Continuous Positive Airway Pressure (ICD-10-PCS; principal; 2019-09-22)
PROC: 5A1D70Z Performance of Urinary Filtration, Intermittent, Less than 6 Hours Per Day (ICD-10-PCS; 2019-09-23)
DX: I13.2 Hypertensive heart and chronic kidney disease with heart failure and with stage 5 chronic kidney disease, or end stage renal disease (principal); J96.01 Acute respiratory failure with hypoxia; N18.6 End stage renal disease; I50.33 Acute on chronic diastolic (congestive) heart failure; E87.1 Hypo-osmolality and hyponatremia; I16.1 Hypertensive emergency; I69.351 Hemiplegia and hemiparesis following cerebral infarction affecting right dominant side; E87.70 Fluid overload, unspecified; E11.22 Type 2 diabetes mellitus with diabetic chronic kidney disease; M19.90 Unspecified osteoarthritis, unspecified site; J44.9 Chronic obstructive pulmonary disease, unspecified; E11.51 Type 2 diabetes mellitus with diabetic peripheral angiopathy without gangrene; G43.909 Migraine, unspecified, not intractable, without status migrainosus; F17.200 Nicotine dependence, unspecified, uncomplicated; Z79.899 Other long term (current) drug therapy; Z71.6 Tobacco abuse counseling; I25.2 Old myocardial infarction; Z99.2 Dependence on renal dialysis; Z82.49 Family history of ischemic heart disease and other diseases of the circulatory system
CPT/HCPCS: 36415; 71045; 80048; 80053; 80061; 80074; 82550; 82553; 82962; 83036; 83880; 84484; 85007; 85025; 85610; 85730; 87116; 93005; 93010; 93306; 94640; 94760; 96365; 96372; 96375; 99406; G0378; A9270-GY; J0885; J1644

== ENCOUNTER 2019-10-06 23:54 | Emergency (ER) | payer MEDICARE ==
--- NOTE | 2019-10-07 00:13 | Emergency Department Report ---
HPI - General Time Seen by Provider: 10/07/19 00:02 - HPI HPI: Room 23 The patient is a 69-year-old male presents with a chief complaint shortness of breath. The patient has history of CHF states she's felt short of breath for several months but his shortness of breath worsened this evening. Per EMS arrived on the patient in respiratory distress with accessory muscle use satting approximately 78% on room air. Patient was placed on CPAP and administered Lasix 40 mg IV. The patient has history of end-stage renal disease and states he was last dialyzed 10/05/2019. Patient denies chest pain. The patient states he feels improved on CPAP Location: [See above] Duration: [See above] Quality: [See above] Severity: [See above] Timing: [See above] Context: [See above] Modifying factors: [See above] Associated signs and symptoms: [see above] ED Past Medical Hx - Past Medical History Hx Hypertension: Yes (since 1997) Hx CVA: Yes (R. side weakness) Hx Heart Attack/AMI: Yes ("maybe in 2016") Hx Congestive Heart Failure: Yes Hx Diabetes: Yes Hx Renal Disease: Yes (Dialysis T, Th, Fri) Hx Headaches / Migraines: Yes - Surgical History Additional Surgical History: tonsillectomy, L. arm fistula - Social History Smoking Status: Current Some Day Smoker - Medications Home Medications: Home Medications Medication Instructions Recorded Confirmed Last Taken Type labetaloL [Labetalol 200mg TAB] 200 mg PO BID #60 tablet 01/01/18 09/23/19 09/22/19 Rx 200 Ergocalciferol (Vitamin D2) 50,000 unit PO QWEEK 09/30/18 09/23/19 09/19/19 History [Drisdol] 50,000 Ferric Citrate (Nf) [Auryxia] 420 mg PO TIDWM 09/30/18 09/23/19 1 Day Ago History ~09/22/19 420 Vit B Comp No.3/Folic/C/Biotin 1 each PO DAILY 09/30/18 09/23/19 1 Day Ago History [Myra-Cirilo Rx Tablet] ~09/22/19 1 AtorvaSTATin [Lipitor] 20 mg PO QHS tablet 10/03/18 09/23/19 Unknown Rx Nicotine [Habitrol] 21 mg TD DAILY #30 patch 10/03/18 09/23/19 Unknown Rx Pantoprazole [Protonix TAB] 40 mg PO QDAY tablet 10/03/18 09/23/19 Unknown Rx Zolpidem [Ambien] 5 mg PO QHS PRN tablet 10/03/18 09/23/19 1 Day Ago Rx ~09/22/19 5 amLODIPine 10 mg PO DAILY #60 tablet 09/24/19 Unknown Rx hydrALAZINE [Apresoline TAB] 100 mg PO TID #90 tab 09/24/19 Unknown Rx ED Review of Systems ROS: Stated complaint: RORY Other details as noted in HPI Constitutional: no symptoms reported Eyes: denies: eye pain ENT: denies: throat pain Respiratory: shortness of breath Cardiovascular: denies: chest pain Endocrine: no symptoms reported Gastrointestinal: denies: abdominal pain Genitourinary: denies: dysuria Musculoskeletal: denies: back pain Neurological: denies: headache Physical Exam - Physical Exam Physical Exam: GENERAL: The patient is well-developed well-nourished male sitting on stretcher with CPAP in place showing mild increased work of breathing. [] HEENT: Normocephalic. Atraumatic. Extraocular motions are intact. Patient has moist mucous membranes. NECK: Supple. Trachea midline CHEST/LUNGS: Increased work of breathing. No crackles auscultated. No wheezing auscultated HEART/CARDIOVASCULAR: Regular. There is no tachycardia. There is no gallop rub or murmur. ABDOMEN: Abdomen is soft, nontender. Patient has normal bowel sounds. There is no abdominal distention. SKIN: There is no rash. There is trace bilateral lower extremity edema. There is no diaphoresis. NEURO: The patient is awake, alert, and oriented. The patient is cooperative. The patient has normal speech MUSCULOSKELETAL: There is no evidence of acute injury. ED Medical Decision Making - Lab Data Result diagrams: 10/07/19 00:12 10/07/19 00:12 Laboratory Tests 10/07/19 10/07/19 10/07/19 00:12 00:12 00:12 WBC 11.3 H RBC 3.21 L Hgb 9.9 L Hct 28.3 L MCV 88 MCH 31 MCHC 35 H RDW 14.7 Plt Count 156 Lymph % (Auto) 8.8 L [place] % (Auto) 9.2 H Eos % (Auto) 1.3 Baso % (Auto) 0.9 Lymph # 1.0 L [place] # 1.0 H Eos # 0.1 Baso # 0.1 Seg Neutrophils % 79.8 H Seg Neutrophils # 9.0 H PT 13.9 INR 1.08 APTT 31.9 Sodium 135 L Potassium 4.1 Chloride 95.2 L Carbon Dioxide 20 L Anion Gap 24 BUN 73 H Creatinine 9.9 H Estimated GFR 6 BUN/Creatinine Ratio 7 Glucose 155 H Calcium 9.6 Total Bilirubin 0.50 AST 25 ALT 17 Alkaline Phosphatase 69 Total Creatine Kinase 166 CK-MB (CK-2) 5.1 H CK-MB (CK-2) Rel Index 3.0 Troponin T 0.121 H* NT-Pro-B Natriuret Pep 40916 H Total Protein 7.3 Albumin 3.9 Albumin/Globulin Ratio 1.1 - EKG Data -: EKG Interpreted by Me EKG shows normal: sinus rhythm Rate: normal (87 bpm) - EKG Data When compared to previous EKG there are: previous EKG unavailable Interpretation: nonspecific ST-T wave juan c - Radiology Data Radiology results: report reviewed (chest x-ray), image reviewed (chest x-ray) interpreted by me: Chest x-ray-mild cephalization [facility] [address] [place] [address] XRay Report Signed Patient: HANY DAS MR#: [id number] : 1950 Acct:[id number] Age/Sex: 69 / M ADM Date: 10/06/19 Loc: ED Attending Dr: Ordering Physician: CHRIS SHAY MD Date of Service: 10/07/19 Procedure(s): XR chest 1V ap Accession Number(s): [id number] cc: CHRIS SHAY MD Fluoro Time In Minutes: CHEST 1 VIEW INDICATION: SOB. COMPARISON: 09/22/2019. FINDINGS: Support devices: None. Heart: Within normal limits. Lungs/Pleura: Small basilar eff usions with associated atelectasis and mild vascular congestion. Additional findings: None. IMPRESSION: Mild congestive failure. Signer Name: Chuck Palomino MD Signed: 10/07/2019 1:19 AM Workstation Name: [id number] Transcribed By: ES Dictated By: Chuck Palomino MD Electronically Authenticated By: Chuck Palomino MD Signed Date/Time: 10/07/19118 DD/ 7 TD/TT: - Differential Diagnosis overload, CHF exacerbation, end-stage renal disease, hypertensive urgency Critical care attestation.: If time is entered above; I have spent that time in minutes in the direct care of this critically ill patient, excluding procedure time. ED Disposition Clinical Impression: Shortness of breath, ESRD needing dialysis Disposition: OP ADMIT IP TO THIS HOSP Is pt being admited?: Yes Does the pt Need Aspirin: Yes Condition: Fair Time of Disposition: 01:33 (hospitalist paged (Dr. Usha Castillo))
[2019-10-07 00:34] LABS: Basophils # (Auto) 0.1 K/mm3 (0.0-0.1); Basophils % (Auto) 0.9 % (0.0-1.8); Eosinophils # (Auto) 0.1 K/mm3 (0.0-0.4); Eosinophils % (Auto) 1.3 % (0.0-4.3); Hematocrit 28.3 % (35.5-45.6); Hemoglobin 9.9 gm/dl (11.8-15.2); Lymphocytes % (Auto) 8.8 % (13.4-35.0); Mean Corpuscular HGB Conc 35 % (32-34); Mean Corpuscular Volume 88 fl (84-94); Monocytes % (Auto) 9.2 % (0.0-7.3); Platelet Count 156 K/mm3 (140-440); Red Blood Count 3.21 M/mm3 (3.65-5.03); Red Cell Distribution Width 14.7 % (13.2-15.2)
[2019-10-07] MEDS ORDERED: NITROGLYCERIN DRIP 50 MG/250 ML BOTTLE IV ONE (00:39)
[2019-10-07 00:46] LABS: INR 1.08 (0.87-1.13)
[2019-10-07 00:47] LABS: Partial Thromboplastin Time 31.9 Sec. (24.2-36.6)
[2019-10-07 00:50] LABS: Creatine Kinase MB 5.1 ng/mL (0.0-4.0)
[2019-10-07 00:51] LABS: Albumin 3.9 g/dL (3.9-5); Calcium 9.6 mg/dL (8.4-10.2)
--- NOTE | 2019-10-07 01:24 | XRay Report ---
CHEST 1 VIEW INDICATION: SOB. COMPARISON: 09/22/2019. FINDINGS: Support devices: None. Heart: Within normal limits. Lungs/Pleura: Small basilar effusions with associated atelectasis and mild vascular congestion. Additional findings: None. IMPRESSION: Mild congestive failure. Signer Name: Chuck Palomino MD Signed: 10/07/2019 1:19 AM Workstation Name: [id number]
[2019-10-07] MEDS ORDERED: ASPIRIN 325 MG TAB PO ONE (01:33)
[2019-10-07] MEDS ORDERED: DEXTROSE 50% IN WATER (25GM) 50 ML SYRINGE IV PRN (02:04)
[2019-10-07] MEDS ORDERED: ONDANSETRON 4 MG/2 ML INJ IV PRN (02:04)
[2019-10-07] MEDS ORDERED: ACETAMINOPHEN 325 MG TAB PO PRN (02:04)
--- NOTE | 2019-10-07 02:11 | History and Physical Report ---
History of Present Illness Date of examination: 10/07/19 History of present illness: 69 year old man with end-stage renal disease on dialysis, CHF, hypertension, diabetes, coronary artery disease, peripheral vascular disease, COPD, CVA was brought to the emergency room with complaints of shortness of breath. Symptoms started 45 minutes after going to bed, patient is compliant with dialysis. Patient arrived in the emergency room on CPAP, EMS gave him Lasix. He was switch over to BiPAP in the emergency room and started on nitroglycerin drip review Of Systems: Constitutional: no weight loss, fever, chills Ears, eyes, nose, mouth and throat: no nasal congestion, no nasal discharge, no sinus pressure, blurry vision, diplopia Neck: No neck pain or rigidity. Cardiovascular: No palpitations Respiratory: No cough Gastrointestinal: No hematochezia, abdominal pain Genitourinary : no dysuria, frequency , hematuria Musculoskeletal: no muscle ache , joint pain Integumentary: no rash, no pruritis Neurological: no parathesias, focal weakness Endocrine: no cold or heat intolerance, no polyuria or polydipsia Hematologic/Lymphatic: no easy bruising, no easy bleeding, no gland swelling Allergic/Immunologic: no urticaria, no angioedema. PAST MEDICAL HISTORY:end-stage renal disease on dialysis, CHF, hypertension, diabetes, coronary artery disease, peripheral vascular disease, COPD, CVA PAST SURGICAL HISTORY: Tonsillectomy, and distal FAMILY HISTORY:hypertension, diabetes SOCIAL HISTORY: Denies drugs, alcohol, smoke 1 pack a day Medications and Allergies Allergies Allergy/AdvReac Type Severity Reaction Status Date / Time No Known Allergies Allergy Verified 03/11/18 11:20 Home Medications Medication Instructions Recorded Confirmed Last Taken Type labetaloL [Labetalol 200mg TAB] 200 mg PO BID #60 tablet 01/01/18 09/23/19 09/22/19 Rx 200 Ergocalciferol (Vitamin D2) 50,000 unit PO QWEEK 09/30/18 09/23/19 09/19/19 History [Drisdol] 50,000 Ferric Citrate (Nf) [Auryxia] 420 mg PO TIDWM 09/30/18 09/23/19 1 Day Ago History ~09/22/19 420 Vit B Comp No.3/Folic/C/Biotin 1 each PO DAILY 09/30/18 09/23/19 1 Day Ago History [Myra-Cirilo Rx Tablet] ~09/22/19 1 AtorvaSTATin [Lipitor] 20 mg PO QHS tablet 10/03/18 09/23/19 Unknown Rx Nicotine [Habitrol] 21 mg TD DAILY #30 patch 10/03/18 09/23/19 Unknown Rx Pantoprazole [Protonix TAB] 40 mg PO QDAY tablet 10/03/18 09/23/19 Unknown Rx Zolpidem [Ambien] 5 mg PO QHS PRN tablet 10/03/18 09/23/19 1 Day Ago Rx ~09/22/19 5 amLODIPine 10 mg PO DAILY #60 tablet 09/24/19 Unknown Rx hydrALAZINE [Apresoline TAB] 100 mg PO TID #90 tab 09/24/19 Unknown Rx Active Meds: Active Medications Acetaminophen (Tylenol) 650 mg PO Q4H PRN PRN Reason: Pain MILD(1-3)/Fever >100.5/DAILEY Dextrose (D50w (25gm) Syringe) 50 ml IV Q30MIN PRN; Protocol PRN Reason: Hypoglycemia Enoxaparin Sodium (Enoxaparin) 30 mg SUB-Q QDAY THONY Nitroglycerin/Dextrose (Tridil Drip 50mg/250ml) 50 mg in 250 mls @ 3 mls/hr IV TITR ONE; Protocol Stop: 10/10/19 11:58 Insulin Human Lispro (Humalog) 0 unit SUB-Q ACHS THONY; Protocol Ondansetron HCl (Zofran) 4 mg IV Q8H PRN PRN Reason: Nausea And Vomiting Sodium Chloride (Sodium Chloride Flush Syringe 10 Ml) 10 ml IV BID THONY Sodium Chloride (Sodium Chloride Flush Syringe 10 Ml) 10 ml IV PRN PRN PRN Reason: LINE FLUSH Exam - Physical Exam Narrative exam: General Apperance: The patient sitting in bed no acute distress HEENT: Normocephalic, atraumatic. Pupils equally round and reactive to light, extraocular movement intact, and no sclericterus or JVD or thyromegaly or nodule. Neck supple, no carotid bruit, mucous membranes moist, no exudate or erythema Heart: S1-S2, regular is rhythm Lungs: Crackles bilaterally, breathing comfortable Abdomen: Positive bowel sounds, soft, nontender, nondistended, no organomegaly Extremities: No edema cyanosis clubbing Skin: no rash, nodule, warm and dry Neuro:CN 2 -12 intact, motor/sensory intact, speech is fluent - Constitutional Vitals: Temp Pulse Resp BP Pulse Ox 97.9 F 84 25 H 176/95 100 10/07/19 00:05 10/07/19 00:12 10/07/19 00:12 10/07/19 00:12 10/07/19 00:12 Results - Labs CBC & Chem 7: 10/07/19 00:12 10/07/19 00:12 Labs: Abnormal lab results 10/07/19 10/07/19 Range/Units 00:12 00:12 WBC 11.3 H (4.5-11.0) K/mm3 RBC 3.21 L (3.65-5.03) M/mm3 Hgb 9.9 L (11.8-15.2) gm/dl Hct 28.3 L (35.5-45.6) % MCHC 35 H (32-34) % Lymph % (Auto) 8.8 L (13.4-35.0) % [place] % (Auto) 9.2 H (0.0-7.3) % Lymph # 1.0 L (1.2-5.4) K/mm3 [place] # 1.0 H (0.0-0.8) K/mm3 Seg Neutrophils % 79.8 H (40.0-70.0) % Seg Neutrophils # 9.0 H (1.8-7.7) K/mm3 Sodium 135 L (137-145) mmol/L Chloride 95.2 L (98-107) mmol/L Carbon Dioxide 20 L (22-30) mmol/L BUN 73 H (9-20) mg/dL Creatinine 9.9 H (0.8-1.5) mg/dL Glucose 155 H (75-100) mg/dL CK-MB (CK-2) 5.1 H (0.0-4.0) ng/mL Troponin T 0.121 H* (0.00-0.029) ng/mL NT-Pro-B Natriuret Pep 51920 H (0-900) pg/mL - Imaging and Cardiology EKG: image reviewed Chest x-ray: report reviewed Assessment and Plan Assessment Acute respiratory failure CHF exacerbation, diastolic dysfunction Hypertensive urgency Elevated troponin End-stage renal disease on dialysis Hypertension Diabetes Coronary artery disease COPD CVA Peripheral vascular disease plan Admit to medicine Continue nitroglycerin drip, BIPAP Consult cardiology, renal for dialysis Check cardiac enzymes, fingersticks, initiate insulin sliding scale DVT prophylaxis Patient father and the is this Friday He wishes to be discharged by Friday
[2019-10-07] MEDS ORDERED: NITROGLYCERIN DRIP 50 MG/250 ML BOTTLE ONE (03:14)
[2019-10-07] MEDS ORDERED: ASPIRIN 325 MG TAB ONE (03:38)
[2019-10-07 03:47] LABS: Creatine Kinase MB 4.8 ng/mL (0.0-4.0)
[2019-10-07 04:45] LABS: Chol/HDL Ratio 2.81 %
[2019-10-07 06:07] LABS: Basophils # (Auto) 0.1 K/mm3 (0.0-0.1); Basophils % (Auto) 0.6 % (0.0-1.8); Eosinophils % (Auto) 0.3 % (0.0-4.3); Hematocrit 25.7 % (35.5-45.6); Hemoglobin 9.1 gm/dl (11.8-15.2); Lymphocytes # (Auto) 0.8 K/mm3 (1.2-5.4); Lymphocytes % (Auto) 8.1 % (13.4-35.0); Mean Corpuscular HGB Conc 35 % (32-34); Mean Corpuscular Volume 88 fl (84-94); Monocytes # (Auto) 0.6 K/mm3 (0.0-0.8); Platelet Count 137 K/mm3 (140-440); Red Blood Count 2.94 M/mm3 (3.65-5.03); Red Cell Distribution Width 14.7 % (13.2-15.2)
[2019-10-07] MEDS: FERRIC CITRATE 420 MG PO SCH ×3 (08:51→18:54)
[2019-10-07 09:13] LABS: Creatine Kinase MB 4.7 ng/mL (0.0-4.0)
[2019-10-07] MEDS ORDERED: NICOTINE 21 MG/24 HR PATCH TD SCH (10:00)
[2019-10-07] MEDS ORDERED: ERGOCALCIFEROL (VIT D2) 50,000 UNIT CAP PO SCH (10:00)
[2019-10-07] MEDS ORDERED: ENOXAPARIN 30 MG/0.3 ML INJ SUB-Q SCH (10:00)
[2019-10-07] MEDS ORDERED: FOLIC ACID/VIT B COMP W-C 1 MG (RENAL CAPS) PO SCH (10:00)
[2019-10-07] MEDS ORDERED: PANTOPRAZOLE 40 MG TAB PO SCH (10:00)
[2019-10-07] MEDS: INSULIN LISPRO 100 UNIT/ML SUB-Q SCH ×4 (10:36→23:16)
--- NOTE | 2019-10-07 11:44 | Consultation ---
History of Present Illness - Reason for Consult Consult date: 10/07/19 end stage renal disease Requesting physician: ASHWIN SANTA - History of Present Illness 72-year-old male with a history of diabetes mellitus, hypertension and end-stage renal disease secondary to biopsy-proven diabetic Glomerulosclerosis on hemodialysis on a Friday, and Friday schedule. Patient missed dialysis on Friday as he was having diarrhea. He's been running around trying to make arrangements for his dad's which is scheduled for Friday. He developed shortness of breath. Last night he went to bed feeling good but woke up dyspneic. Patient was sweating, coughing but it is nonproductive. No hemoptysis or wheezing. He admits to lower extremity swelling. No nausea or vomiting. Patient's symptoms kept getting worse and so they called the ambulance and he was found to have O2 sat of 70% by EMS. Patient was placed on BiPAP brought to the hospital. Was given Lasix intravenously in the ER and admitted for further management. Consulted to provide dialysis and manage his fluid and electrolyte abnormalities. Past History Past Medical History: diabetes, hypertension, hyperlipidemia, renal failure Past Surgical History: PTCA, Other (AV fistula placement) Social history: , lives with family (), smoking. denies: alcohol abuse, prescription drug abuse, IV drug use Family history: diabetes (both parents), hypertension (both parents) Medications and Allergies Allergies Allergy/AdvReac Type Severity Reaction Status Date / Time No Known Allergies Allergy Verified 03/11/18 11:20 Home Medications Medication Instructions Recorded Confirmed Last Taken Type labetaloL [Labetalol 200mg TAB] 200 mg PO BID #60 tablet 01/01/18 10/07/19 09/22/19 Rx 200 Ergocalciferol (Vitamin D2) 50,000 unit PO QWEEK 09/30/18 10/07/19 09/19/19 History [Drisdol] 50,000 Ferric Citrate (Nf) [Auryxia] 420 mg PO TIDWM 09/30/18 10/07/19 1 Day Ago H istory ~09/22/19 420 Vit B Comp No.3/Folic/C/Biotin 1 each PO DAILY 09/30/18 10/07/19 1 Day Ago History [Myra-Cirilo Rx Tablet] ~09/22/19 1 Nicotine [Habitrol] 21 mg TD DAILY #30 patch 10/03/18 10/07/19 Unknown Rx Pantoprazole [Protonix TAB] 40 mg PO QDAY tablet 10/03/18 10/07/19 Unknown Rx amLODIPine 10 mg PO DAILY #60 tablet 09/24/19 10/07/19 Unknown Rx hydrALAZINE [Apresoline TAB] 100 mg PO TID #90 tab 09/24/19 10/07/19 Unknown Rx Insulin Aspart (Nf) [Novolog] 5 unit SQ AC 10/07/19 10/07/19 Unknown History Insulin Detemir [Levemir VIAL] 10 unit SQ QHS 10/07/19 10/07/19 Unknown History Active Meds: Active Medications Acetaminophen (Tylenol) 650 mg PO Q4H PRN PRN Reason: Pain MILD(1-3)/Fever >100.5/DAILEY Atorvastatin Calcium (Lipitor) 20 mg PO QHS [facility] Dextrose (D50w (25gm) Syringe) 0 ml IV Q30MIN PRN; Protocol PRN Reason: Hypoglycemia Enoxaparin Sodium (Enoxaparin) 30 mg SUB-Q QDAY [facility] Ergocalciferol (Vitamin D2) 50,000 unit PO Th [facility] Nitroglycerin/Dextrose (Tridil Drip 50mg/250ml) 50 mg in 250 mls @ 3 mls/hr IV TITR ONE; Protocol Stop: 10/10/19 11:58 Last Titration: 10/07/19 10:05 Dose: 10 mcg/min, 3 mls/hr Documented by: Insulin Human Lispro (Humalog) 0 unit SUB-Q ACHS [facility]; Protocol Last Admin: 10/07/19 10:36 Dose: Not Given Documented by: Miscellaneous Medication (Ferric Citrate) 420 mg PO TIDWM [facility] Last Admin: 10/07/19 08:51 Dose: Not Given Documented by: Multivit/Ca Carb/B Cmplx/FA/Prenat (Renal Caps) 1 cap PO DAILY [facility] Nicotine (Habitrol) 21 mg TD DAILY [facility] Ondansetron HCl (Zofran) 4 mg IV Q8H PRN PRN Reason: Nausea And Vomiting Pantoprazole Sodium (Protonix) 40 mg PO QDAY [facility] Sodium Chloride (Sodium Chloride Flush Syringe 10 Ml) 10 ml IV BID [facility] Sodium Chloride (Sodium Chloride Flush Syringe 10 Ml) 10 ml IV PRN PRN PRN Reason: LINE FLUSH Review of Systems All systems: negative (as noted in history of present illness) Exam - Vital Signs Vital signs: Vital Signs Temp Pulse Resp BP Pulse Ox 97.9 F 93 H 24 176/95 100 10/07/19 00:05 10/07/19 00:05 10/07/19 00:05 10/07/19 00:05 10/07/19 00:05 - Physical Exam Narrative exam: Middle-aged -[place] male lying in bed in moderate respiratory distress on BiPAP HEENT: NCAT, pink oral mucous membrane Neck: Supple, no venous distention CVS: S1S2 RRR with no murmur, rub or gallop Chest: Diminished breath sounds with bilateral rhonchi Abdomen: Protuberant, soft, nontender, no organomegaly, bowel sounds are present Extremities: Mild pitting edema Skin warm and dry Genitourinary deferred Neuro: Awake, alert no focal deficits Results - Lab Results 10/07/19 05:49 10/08/19 05:42 Most recent lab results Calcium 9.6 mg/dL (8.4-10.2) 10/07/19 00:12 Assessment and Plan - Patient Problems (1) Acute respiratory failure with hypoxia Status: Acute Plan to address problem: Acute respiratory failure secondary to acute pulmonary edema secondary to fluid overload secondary to missed dialysis. Continue BiPAP and hemodialysis Stat. I called dialysis nurse and they will arrange for dialysis as soon as possible (2) Fluid overload Status: Acute Plan to address problem: Patient missed dialysis. He has a history of chronic nonadherence. Counseled patient and about importance of going to dialysis regularly. If he has to miss because he is sick one day he can reschedule to go the next day. Patient expressed understanding and promises to do better. was there during this discussion (3) Hypertensive chronic kidney disease with stage 5 chronic kidney disease or end stage renal disease Status: Acute Plan to address problem: Resume oral antihypertensive medications and follow blood pressure. (4) Type 2 diabetes mellitus with diabetic chronic kidney disease Status: Acute Plan to address problem: Blood sugar management by primary attending (5) ESRD on hemodialysis Status: Chronic Plan to address problem: Patient on hemodialysis on a Friday, and Friday schedule. Reevaluate for dialysis again tomorrow (6) Anemia in chronic kidney disease Status: Acute Plan to address problem: Give erythropoietin on dialysis and follow-up hemoglobin
[2019-10-07] MEDS ORDERED: HEPARIN 10,000 UNITS/10 ML VIAL IV PRN (11:45)
[2019-10-07] MEDS ORDERED: SODIUM CHLORIDE 0.9% 100 ML IV PRN (11:45)
[2019-10-07] MEDS ORDERED: EPOETIN ALFA 10,000 UNIT/1 ML INJ IV PRN (11:45)
[2019-10-07] MEDS ORDERED: ENOXAPARIN 30 MG/0.3 ML INJ SUB-Q ONE (12:27)
--- NOTE | 2019-10-07 15:40 | Event Note ---
Date: 10/07/19 Pt with ESRD on HD admitted for hypoxia and acute and chronic diastolic HF on BIPAP and NG drip. Consult placed for cardiology and nephrology
[2019-10-08 06:20] LABS: Calcium 8.7 mg/dL (8.4-10.2)
--- NOTE | 2019-10-08 11:01 | Discharge Summary ---
Providers - Providers Date of Admission: 10/07/19 02:59 Date of discharge: 10/08/19 Attending physician: RADHA FERNANDEZ 10/07/19 02:04 Consult to Physician [CONS] Routine Comment: Consulting Provider: ESTEVAN PATEL Physician Instructions: Reason For Exam: cc 10/07/19 02:21 Consult to Physician [CONS] Routine Comment: Consulting Provider: HI CORDON Physician Instructions: Reason For Exam: hd 10/07/19 15:37 Consult to Physician [CONS] Routine Comment: Consulting Provider: ARTURO DUPONT Physician Instructions: Reason For Exam: Acute CHF Primary care physician: ALIRIO LIMA Hospitalization Reason for admission: Acute respiratory failure with hypoxia Condition: Serious Hospital course: Final discharge diagnoses/Hospital course: Acute respiratory failure with hypoxia Acute on chronic diastolic HF Hypertensive urgency Elevated troponin, probably 2/2 to demand ischemia SIRS due to noninfectious cause with organ failure End-stage renal disease on HTN DM2 Coronary artery disease COPD CVA Peripheral vascular disease Patient was placed on BiPAP for hypoxia in addition to nitroglycerin drip. He later underwent dialysis. Subsequent plan was to continue management and further evaluation. However, patient left against medical advise despite extensive education. The reason being that he wanted to attend his father's burial. He understood the implications of his decision. Disposition: DC-07 LEFT AGAINST MED ADVICE Time spent for discharge: 35 minutes Core Measure Documentation - Palliative Care Palliative Care/ Comfort Measures: Not Applicable - Core Measures Any of the following diagnoses?: none Exam - Constitutional Vitals: Temp Pulse Resp BP Pulse Ox 98.6 F 78 18 146/67 96 10/08/19 07:43 10/08/19 07:30 10/08/19 07:30 10/08/19 07:30 10/08/19 07:30 General appearance: Present: no acute distress, well-nourished - EENT Eyes: Present: PERRL, EOM intact ENT: hearing intact, clear oral mucosa - Neck Neck: Present: supple, normal ROM - Respiratory Respiratory effort: normal Respiratory: bilateral: diminished, negative: wheezing - Cardiovascular Rhythm: regular Heart Sounds: Present: S1 & S2 - Extremities Extremities: No edema - Abdominal General gastrointestinal: Present: soft, non-tender, non-distended, normal bowel sounds - Integumentary Integumentary: Present: clear, warm, dry - Musculoskeletal Musculoskeletal: gait normal, strength equal bilaterally - Psychiatric Psychiatric: appropriate mood/affect - Neurologic Neurologic: CNII-XII intact, moves all extremities Plan Follow up with: ALIRIO LIMA MD [Primary Care Provider] - 7 Days
--- NOTE | 2019-10-08 11:12 | Consultation ---
History of Present Illness Consult date: 10/08/19 Requesting physician: ASHWIN SANTA Consult reason: congestive heart failure, elevated troponin History of present illness: The patient has a history of a chronic HFpEF and end-stage renal disease on hemodialysis. He claims that he lost his father 4 days ago. He claims that during the arrangements he had to make, he missed his dialysis on that day. Three days ago, he started experiencing progressive dyspnea. He has no chest pain. Echocardiogram of September 2019 revealed an ejection fraction of 55-60%. Past History Past Medical History: CAD, COPD, diabetes, ESRD, hypertension, hyperlipidemia, stroke (ICH), other (GI bleed) Past Surgical History: PTCA Social history: smoking. denies: alcohol abuse Family history: CAD Medications and Allergies Allergies Allergy/AdvReac Type Severity Reaction Status Date / Time No Known Allergies Allergy Verified 03/11/18 11:20 Home Medications Medication Instructions Recorded Confirmed Last Taken Type labetaloL [Labetalol 200mg TAB] 200 mg PO BID #60 tablet 01/01/18 10/07/19 09/22/19 Rx 200 Ergocalciferol (Vitamin D2) 50,000 unit PO QWEEK 09/30/18 10/07/19 09/19/19 History [Drisdol] 50,000 Ferric Citrate (Nf) [Auryxia] 420 mg PO TIDWM 09/30/18 10/07/19 1 Day Ago History ~09/22/19 420 Vit B Comp No.3/Folic/C/Biotin 1 each PO DAILY 09/30/18 10/07/19 1 Day Ago History [Myra-Cirilo Rx Tablet] ~09/22/19 1 Nicotine [Habitrol] 21 mg TD DAILY #30 patch 10/03/18 10/07/19 Unknown Rx Pantoprazole [Protonix TAB] 40 mg PO QDAY tablet 10/03/18 10/07/19 Unknown Rx amLODIPine 10 mg PO DAILY #60 tablet 09/24/19 10/07/19 Unknown Rx hydrALAZINE [Apresoline TAB] 100 mg PO TID #90 tab 09/24/19 10/07/19 Unknown Rx Insulin Aspart (Nf) [Novolog] 5 unit SQ AC 10/07/19 10/07/19 Unknown History Insulin Detemir [Levemir VIAL] 10 unit SQ QHS 10/07/19 10/07/19 Unknown History Active Meds: Active Medications Acetaminophen (Tylenol) 650 mg PO Q4H PRN PRN Reason: Pain MILD(1-3)/Fever >100.5/DAILEY Atorvastatin Calcium (Lipitor) 20 mg PO QHS [facility] Last Admin: 10/07/19 23:16 Dose: 20 mg Documented by: Dextrose (D50w (25gm) Syringe) 0 ml IV Q30MIN PRN; Protocol PRN Reason: Hypoglycemia Enoxaparin Sodium (Enoxaparin) 30 mg SUB-Q QDAY [facility] Last Admin: 10/07/19 12:32 Dose: 30 mg Documented by: Epoetin Karl (Procrit) 10,000 unit IV HAKAN PRN PRN Reason: hemodialysis Last Admin: 10/07/19 18:45 Dose: 10,000 unit Documented by: Ergocalciferol (Vitamin D2) 50,000 unit PO Th [facility] Last Admin: 10/07/19 18:54 Dose: Not Given Documented by: Heparin Sodium (Porcine) (Heparin 10,000 Units/10 Ml) 1,000 unit IV HAKAN PRN PRN Reason: hemodialysis Last Admin: 10/07/19 17:52 Dose: 1,000 unit Documented by: Nitroglycerin/Dextrose (Tridil Drip 50mg/250ml) 50 mg in 250 mls @ 3 mls/hr IV TITR ONE; Protocol Stop: 10/10/19 11:58 Last Titration: 10/07/19 22:05 Dose: 20 mcg/min, 6 mls/hr Documented by: Sodium Chloride (Nacl 0.9%) 100 mls @ 999 mls/hr IV HAKAN PRN PRN Reason: Hypotension Insulin Human Lispro (Humalog) 0 unit SUB-Q ACHS [facility]; Protocol Last Admin: 10/07/19 23:16 Dose: Not Given Documented by: Miscellaneous Medication (Ferric Citrate) 420 mg PO TIDWM [facility] Last Admin: 10/07/19 18:54 Dose: Not Given Documented by: Multivit/Ca Carb/B Cmplx/FA/Prenat (Renal Caps) 1 cap PO DAILY [facility] Last Admin: 10/07/19 18:55 Dose: Not Given Documented by: Nicotine (Habitrol) 21 mg TD DAILY [facility] Last Admin: 10/07/19 11:15 Dose: Not Given Documented by: Ondansetron HCl (Zofran) 4 mg IV Q8H PRN PRN Reason: Nausea And Vomiting Pantoprazole Sodium (Protonix) 40 mg PO QDAY [facility] Last Admin: 10/07/19 10:30 Dose: Not Given Documented by: Sodium Chloride (Sodium Chloride Flush Syringe 10 Ml) 10 ml IV BID [facility] Last Admin: 10/07/19 22:00 Dose: 10 ml Documented by: Sodium Chloride (Sodium Chloride Flush Syringe 10 Ml) 10 ml IV PRN PRN PRN Reason: LINE FLUSH Review of Systems Constitutional: no fever, no chills Ears, nose, mouth and throat: no ear pain, no sore throat Cardiovascular: orthopnea, shortness of breath, no chest pain, no palpitations, no lightheadedness Respiratory: shortness of breath, no cough, no hemoptysis Gastrointestinal: no abdominal pain, no nausea, no vomiting, no diarrhea, no constipation Genitourinary Male: no dysuria, no urinary frequency Rectal: no pain, no bleeding Musculoskeletal: no neck stiffness, no neck pain, no myalgias Integumentary: no rash, no pruritis Neurological: no weakness, no parathesias, no headaches Endocrine: no cold intolerance, no heat intolerance Hematologic/Lymphatic: no easy bruising, no easy bleeding Allergic/Immunologic: no urticaria, no angioedema Physical Examination Vital Signs Last Vital Signs Temp 98.6 F 10/08/19 07:43 Pulse 78 10/08/19 07:30 Resp 18 10/08/19 07:30 BP 146/67 10/08/19 07:30 Pulse Ox 96 10/08/19 07:30 General appearance: no acute distress HEENT: Positive: EOMI, Normocephaly, Mucus Membranes Moist Neck: Positive: neck supple, trachea midline, JVD/HJR Cardiac: Positive: Reg Rate and Rhythm, S1/S2 Lungs: Positive: clear to auscultation Neuro: Positive: Grossly Intact Abdomen: Positive: Soft, Active Bowel Sounds. Negative: Tender Skin: Positive: Clear. Negative: Rash Musculoskeletal: Normal Range of Motion Extremities: Present: normal. Absent: edema Results 10/07/19 05:49 10/08/19 05:42 Comprehensive Metabolic Panel 10/08/19 Range/Units 05:42 Sodium 137 (137-145) mmol/L Potassium 3.3 L (3.6-5.0) mmol/L Chloride 96.7 L (98-107) mmol/L Carbon Dioxide 25 (22-30) mmol/L BUN 33 H (9-20) mg/dL Creatinine 5.8 H (0.8-1.5) mg/dL Glucose 124 H (75-100) mg/dL Calcium 8.7 (8.4-10.2) mg/dL - Imaging and Cardiology EKG: image reviewed EKG interpretations - Telemetry EKG Rhythm: Sinus Rhythm - EKG Sinus rhythms and dysrhythmias: sinus rhythm Chamber hypertrophy or enlargement: left ventricular hypertro Assessment and Plan Initiate dialysis. He will be placed on antihypertensive regimen. His troponin levels have been chronically elevated on different admissions. There is no clinical suggestion of acute coronary syndrome at this point. However, during this hospitalization, Lexiscan stress test with nuclear imaging may be obtained prior to discharge. - Patient Problems (1) Acute on chronic heart failure with preserved ejection fraction Current Visit: Yes Status: Acute (2) ESRD on hemodialysis Current Visit: Yes Status: Chronic (3) CAD (coronary artery disease) Current Visit: Yes Status: Chronic Qualifiers: Coronary Disease-Associated Artery/Lesion type: [place] artery [place] vs. transplanted heart: [place] heart (4) Stented coronary artery Current Visit: Yes Status: Chronic (5) HTN (hypertension) Current Visit: Yes Status: Chronic Qualifiers: Hypertension type: essential hypertension Qualified Code(s): I10 - Essential (primary) hypertension (6) Elevated troponin Current Visit: Yes Status: Chronic (7) COPD (chronic obstructive pulmonary disease) Current Visit: Yes Status: Chronic (8) History of intracranial hemorrhage Current Visit: Yes Status: Resolved (9) Diabetes mellitus Current Visit: Yes Status: Chronic Qualifiers: Diabetes mellitus type: type 2
[2019-10-08 12:38] VITALS: BP 159/80
== END 2019-10-08 10:50 | disposition left against medical advice (07) ==
LOC: ED 23:54 → UNDOADMIN 10-07 02:59 → CC1 10-07 02:59
DX: J96.00 Acute respiratory failure, unspecified whether with hypoxia or hypercapnia (principal); E11.22 Type 2 diabetes mellitus with diabetic chronic kidney disease; I13.2 Hypertensive heart and chronic kidney disease with heart failure and with stage 5 chronic kidney disease, or end stage renal disease; I50.9 Heart failure, unspecified; N18.6 End stage renal disease; I16.0 Hypertensive urgency; I50.31 Acute diastolic (congestive) heart failure; G43.909 Migraine, unspecified, not intractable, without status migrainosus; F17.200 Nicotine dependence, unspecified, uncomplicated; Z99.2 Dependence on renal dialysis; Z90.89 Acquired absence of other organs; Z79.4 Long term (current) use of insulin
CPT/HCPCS: 36415; 71045; 80048; 80053; 80061; 82550; 82553; 82962; 83735; 83880; 84484; 85025; 85610; 85730; 93005; 93010; 96365; 96366; 96372; 99285; J0885; J1650; 96375; G0378; G0257; J1644

== ENCOUNTER 2020-12-11 18:01 | Emergency (ER) | payer MEDICARE ==
--- NOTE | 2020-12-11 18:15 | Emergency Department Report ---
ED CPR HPI - General Stated Complaint: CARDIAC ARREST Time Seen by Provider: 12/11/20 18:09 Source: old records reviewed - History of Present Illness Initial Comments: 70-year-old male presents to the hospital in cardiopulmonary arrest. Patient apparently had a stroke and as per family been in the bed most of the day and is bedbound. Patient was found unresponsive by family members. EMS states patient with apnea and asystole upon their arrival. Patient received 3 rounds of epinephrine, chest compressions, intubation with 6 cm ET tube and remained in asystole. Pertinent code times: EMS received call at 17:27 EMS at scene at 17:33 Arrival to [facility] at 17:57 As per previous medical record review patient was last admitted here September 2019 with diagnosis below Acute respiratory failure with hypoxia Acute on chronic diastolic HF Hypertensive urgency Elevated troponin, probably 2/2 to demand ischemia SIRS due to noninfectious cause with organ failure End-stage renal disease on HTN DM2 Coronary artery disease COPD CVA Peripheral vascular disease - Related Data Home Medications Medication Instructions Recorded Confirmed Last Taken Ergocalciferol (Vitamin D2) 50,000 unit PO QWEEK 09/30/18 10/07/19 09/19/19 [Drisdol] 50,000 Ferric Citrate (Nf) [Auryxia] 420 mg PO TIDWM 09/30/18 10/07/19 1 Day Ago ~09/22/19 420 Vit B Comp No.3/Folic/C/Biotin 1 each PO DAILY 09/30/18 10/07/19 1 Day Ago [Myra-Cirilo Rx Tablet] ~09/22/19 1 Insulin Aspart (Nf) [Novolog] 5 unit SQ AC 10/07/19 10/07/19 Unknown Insulin Detemir [Levemir VIAL] 10 unit SQ QHS 10/07/19 10/07/19 Unknown Previous Rx's Medication Instructions Recorded Last Taken Type labetaloL [Labetalol 200mg TAB] 200 mg PO BID #60 tablet 01/01/18 09/22/19 Rx 200 Nicotine [Habitrol] 21 mg TD DAILY #30 patch 10/03/18 Unknown Rx Pantoprazole [Protonix TAB] 40 mg PO QDAY tablet 10/03/18 Unknown Rx amLODIPine 10 mg PO DAILY #60 tablet 09/24/19 Unknown Rx hydrALAZINE [Apresoline TAB] 100 mg PO TID #90 tab 09/24/19 Unknown Rx Allergies Allergy/AdvReac Type Severity Reaction Status Date / Time No Known Allergies Allergy Verified 03/11/18 11:20 ED Review of Systems ROS: Stated complaint: CARDIAC ARREST Other details as noted in HPI Comment: Unobtainable due to pts medical conditions ED Past Medical Hx - Past Medical History Hx Hypertension: Yes (since 1997) Hx CVA: Yes (R. side weakness) Hx Heart Attack/AMI: Yes ("maybe in 2016") Hx Congestive Heart Failure: Yes Hx Diabetes: Yes Hx Renal Disease: Yes (Dialysis T, Th, Sat) Hx Headaches / Migraines: Yes - Surgical History Additional Surgical History: tonsillectomy, L. arm fistula - Social History Smoking Status: Current Some Day Smoker - Medications Home Medications: Home Medications Medication Instructions Recorded Confirmed Last Taken Type labetaloL [Labetalol 200mg TAB] 200 mg PO BID #60 tablet 01/01/18 10/07/19 09/22/19 Rx 200 Ergocalciferol (Vitamin D2) 50,000 unit PO QWEEK 09/30/18 10/07/19 09/19/19 History [Drisdol] 50,000 Ferric Citrate (Nf) [Auryxia] 420 mg PO TIDWM 09/30/18 10/07/19 1 Day Ago History ~09/22/19 420 Vit B Comp No.3/Folic/C/Biotin 1 each PO DAILY 09/30/18 10/07/19 1 Day Ago History [Myra-Cirilo Rx Tablet] ~09/22/19 1 Nicotine [Habitrol] 21 mg TD DAILY #30 patch 10/03/18 10/07/19 Unknown Rx Pantoprazole [Protonix TAB] 40 mg PO QDAY tablet 10/03/18 10/07/19 Unknown Rx amLODIPine 10 mg PO DAILY #60 tablet 09/24/19 10/07/19 Unknown Rx hydrALAZINE [Apresoline TAB] 100 mg PO TID #90 tab 09/24/19 10/07/19 Unknown Rx Insulin Aspart (Nf) [Novolog] 5 unit SQ AC 10/07/19 10/07/19 Unknown History Insulin Detemir [Levemir VIAL] 10 unit SQ QHS 10/07/19 10/07/19 Unknown History ED Physical Exam - Other Other exam information: General: Cachectic, ill-appearing Head: Atraumatic Eyes: Pupils fixed ENT: Orally intubated 6 oh ET tube Neck: Normal appearance, no midline tenderness Chest: Apneic, no spontaneous respiration CV: Regular rate and rhythm Abdomen: Soft, nondistended Back: Normal inspection Extremity: Left leg IO Neuro: GCS 3 ED Medical Decision Making - Medical Decision Making Patient remained in asystole upon ED arrival despite epinephrine, chest compressions, and [id number] ventilations with supplemental oxygen in route to the hospital. Upon arrival patient received an additional dose of epinephrine, sodium bicarb, and 1 amp of D50. Accu-Chek 74. Patient has remained in asystole during duration of resuscitation efforts. Time of 18:06 Critical care attestation.: If time is entered above; I have spent that time in minutes in the direct care of this critically ill patient, excluding procedure time. ED Disposition Clinical Impression: Cardiopulmonary arrest Disposition: DC-20 Is pt being admited?: No Condition: Poor Time of Disposition: 18:10
== END 2020-12-11 20:43 ==
LOC: ED 18:01
DX: I46.9 Cardiac arrest, cause unspecified (principal); I25.2 Old myocardial infarction; I13.2 Hypertensive heart and chronic kidney disease with heart failure and with stage 5 chronic kidney disease, or end stage renal disease; E11.9 Type 2 diabetes mellitus without complications; I50.9 Heart failure, unspecified; N18.6 End stage renal disease; G43.909 Migraine, unspecified, not intractable, without status migrainosus; F17.200 Nicotine dependence, unspecified, uncomplicated; Z90.49 Acquired absence of other specified parts of digestive tract; Z79.899 Other long term (current) drug therapy; Z86.73 Personal history of transient ischemic attack (TIA), and cerebral infarction without residual deficits; Z98.890 Other specified postprocedural states
CPT/HCPCS: 82962; 92950